=== PATIENT | female | born 1940 | race Caucasian/White ===

== ENCOUNTER 2016-10-23 07:54 | Observation (INO) | payer OTHER ==
--- NOTE | 2016-10-23 08:17 | PDOC ---
History of Present Illness - General Chief Complaint: Syncope/Near Syncope Stated Complaint: PASSED OUT Time Seen by Provider: 10/23/16 08:16 History Source: Patient, Old Records Exam Limitations: No Limitations - History of Present Illness Initial Comments: 10/23/16 08:23 75-year-old female with history of hypertension, high cholesterol, diet- controlled diabetes, lung cancer (on chemotherapy) presents to the emergency department with syncope times one episode this morning and near syncope several hours after that. The patient states that she was feeling leg cramps this morning at around 5 AM. She got up to go to the bathroom and after urinating felt very lightheaded, dizzy and diaphoretic. She thought she was going to pass out so her intentions were to lay down on the floor. The patient says that she may have blacked out for a minute or so. The patient had pain to her face and thinks that she probably hit her face on the way down to the floor. She subsequently got up and went back to bed when she had a recurrent episode without syncope. The patient denies chest pain, shortness of breath, nausea, vomiting, abdominal pain, complaints. The patient took 6 baby aspirin after this episode. 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) Diabetes: Yes HTN: Yes Hypercholesterolemia: Yes Lung CA: Yes (ON CHEMOTHERAPY Q2 WEEKS FOR PAST 12 YRS) - Psycho/Social/Smoking Cessation Hx Anxiety: No Suicidal Ideation: No Smoking History: Former smoker Have you smoked in the past 12 months: No If you are a former smoker, when did you quit?: 1982 Information on smoking cessation initiated: No Hx Alcohol Use: No Drug/Substance Use Hx: No Substance Use Type: None Review of Systems - Review of Systems Able to Perform ROS?: Yes Is the patient limited Fijian proficient: No Constitutional: Yes: See HPI HEENTM: Yes: See HPI Respiratory: No: Symptoms reported Cardiac (ROS): No: Symptoms Reported ABD/GI: No: Symptoms Reported : No: Symptoms Reported Musculoskeletal: No: Symptoms Reported Integumentary: No: Symptoms Reported Neurological: Yes: Dizziness *Physical Exam - Vital Signs Last Vital Signs Temp Pulse Resp BP Pulse Ox 98 F 93 H 18 177/91 92 L 10/23/16 07:56 10/23/16 07:56 10/23/16 07:56 10/23/16 07:56 10/23/16 07:56 - Physical Exam Comments: 10/23/16 08:18 GENERAL: Well developed, well nourished. Awake and alert. No acute distress. HEENT: Normocephalic. There is ecchymosis and swelling to the forehead and the nasl bridge with tenderness to palpation. PERRLA, EOMI (both eyes are s/p cataract surgery). . No conjunctival pallor. Sclera are non-icteric. Moist mucous membranes. Oropharynx is clear. NECK: Supple. Full ROM. No JVD. No lymphadenopathy. CARDIOVASCULAR: Regular rate and rhythm. No murmurs, rubs, or gallops. Distal pulses are 2+ and symmetric. PULMONARY: No evidence of respiratory distress. There are crackles in the [id number] left lung field; the righht lung field is CTA. No wheezing, rales or rhonchi. ABDOMINAL: Soft. Non-tender. Non-distended. No rebound or guarding. No organomegaly. Normoactive bowel sounds. MUSCULOSKELETAL Normal range of motion at all joints. No bony deformities or tenderness. No CVA tenderness. EXTREMITIES: No cyanosis. No clubbing. No edema. No calf tenderness. SKIN: Warm and dry. Normal capillary refill. No rashes. No jaundice. NEUROLOGICAL: Alert, awake, appropriate. Cranial nerves 2-12 intact. Grossly non-focal exam. PSYCHIATRIC: Cooperative. Good eye contact. Appropriate mood and affect. ED Treatment Course - LABORATORY CBC & Chemistry Diagram: 10/23/16 08:18 10/23/16 08:18 Medical Decision Making - Medical Decision Making 10/23/16 08:20 75-year-old female with history of lung CA (on chemotherapy), hypertension, high cholesterol, diet-controlled diabetes who presents to the emergency Department with complaints of facial pain status post syncopal episode times one and near syncope this morning. Differential diagnosis includes but is not limited to: Cardiac arrhythmia, ACS, dehydration, electrolyte abnormality, infection, toxic/metabolic derangement, nasal bone fracture, traumatic brain injury, head contusion, concussion. Plan: 1. EKGshows normal sinus rhythm at 83 bpm, normal axis and intervals with no acute ST segment changes. 2. CT head 3. Chest x-ray 4. Labs 5. Urine analysis 6. Will admit to a monitored setting for serial cardiac markers and cardiac monitoring 10/23/16 09:55 Addendum: Labs were reviewed and are noted in the EMR. CT head is negative for acute intracranial pathology. Chest x-ray is unchanged from prior. Will admit to telemetry for syncope workup. *DC/Admit/Observation/Transfer Diagnosis at time of Disposition: Syncope and collapse, Facial contusion - Discharge Dispostion Condition at time of disposition: Stable Admit: Yes
[2016-10-23 09:07] LABS: BASOPHIL 0.5 % (0-2.0); MCH 30.2 pg (25.7-33.7); MCHC 34.5 g/dl (32.0-36.0); MEAN CELL VOLUME 87.3 fl (80-96); MEAN PLT VOLUME 8.6 fl (7.5-11.1); NEUTROPHILS 74.2 % (42.8-82.8); PLATELET COUNT 219 K/MM3 (134-434); RDW 14.8 % (11.6-15.6); WHITE BLOOD COUNT 10.1 K/mm3 (4.0-10.8)
[2016-10-23 09:14] LABS: CPK(DFH) 91 IU/L (26-140)
[2016-10-23 09:16] LABS: ALBUMIN 3.9 g/dl (3.5-5.0); ALK PHOS 137 U/L (32-92); ANION GAP 9 (8-16); BILIRUBIN,TOTAL 0.5 mg/dl (0.2-1.0); CO2 26 mmol/L (22-28); CREATININE 0.9 mg/dl (0.6-1.3); GLUCOSE,RANDOM 107 mg/dl (74-106); MAGNESIUM 1.8 mg/dL (1.8-2.4); PHOSPHOROUS 3.7 mg/dl (2.5-4.6); SGOT/AST 39 U/L (10-42); SGPT/ALT 29 U/L (10-40); TOT PROT 6.8 g/dl (6.4-8.3)
[2016-10-23 09:22] LABS: ACTIVATED PTT 28.6 SECONDS (24.0-38.9)
[2016-10-23 09:26] LABS: INR 0.95 (0.82-1.09); PROTHROMBIN TIME (PATIENT) 10.7 SEC (10.2-13.0)
[2016-10-23 09:46] LABS: TROPONIN I (DFP) < 0.03 ng/ml (0.03-0.50)
--- NOTE | 2016-10-23 10:20 | HP ---
CHIEF COMPLAINT: syncope PCP: Dr Longoria Oncology: Dr Cronin HISTORY OF PRESENT ILLNESS: Patient is a 75 y/o female with a past medical history of lung CA ( chemotherapy every 2 weeks), carotid stenosis, PVD, hypertension, hyperlipidemia, NIDDM (diet controlled). Patient reports she was upstairs in her home early this AM (5am) and was sitting on the toilet and upon attempting to stand, she felt dizzy and fell striking her face on the floor, patient is unable to recall the full incident in detail. reports he was home at the time of the incident and found patient on the floor awake, alert and oriented times three. patient denies any chest pain, shortness of breath, or abdominal pain. ER course was notable for: (1) head ct no acute pathology (2) ekg nsr normal axis (3) chest xray right pleural thickening, right sided athelactasis/fibrosis unchanged from prior Recent Travel: none PAST MEDICAL HISTORY: lung ca, carotid stenosis, peripheral vascular disease, HTN, HLD, NIDDM PAST SURGICAL HISTORY: carotid enderectomy, fem pop Social History: employed, resides at home with Smoking: none Alcohol:none Drugs: none Family History: non contributory Allergies No Known Allergies Allergy (Verified 10/23/16 07:56) HOME MEDICATIONS: Home Medications Medication Instructions Recorded Aspirin Coated [Ecotrin -] 81 mg PO DAILY 12/02/14 Atorvastatin Ca [Lipitor -] 80 mg PO DAILY 12/02/14 Valsartan [Diovan] 40 mg PO DAILY 12/02/14 Vinorelbine Tartrate [Navelbine] 0 mg IV ASDIR 12/02/14 Colesevelam HCl [Welchol (Nf)] 0 mg NR DAILY 10/23/16 REVIEW OF SYSTEMS CONSTITUTIONAL: Absent: fever, chills, diaphoresis, generalized weakness, malaise, loss of appetite, weight change HEENT: Absent: rhinorrhea, nasal congestion, throat pain, throat swelling, difficulty swallowing, mouth swelling, ear pain, eye pain, visual changes CARDIOVASCULAR: Absent: chest pain, syncope, palpitations, irregular heart rate, lightheadedness , peripheral edema RESPIRATORY: Absent: cough, shortness of breath, dyspnea with exertion, orthopnea, wheezing, stridor, hemoptysis GASTROINTESTINAL: Absent: abdominal pain, abdominal distension, nausea, vomiting, diarrhea, constipation, melena, hematochezia GENITOURINARY: Absent: dysuria, frequency, urgency, hesitancy, hematuria, flank pain, genital pain MUSCULOSKELETAL: Absent: myalgia, arthralgia, joint swelling, back pain, neck pain SKIN: Absent: rash, itching, pallor HEMATOLOGIC/IMMUNOLOGIC: Absent: easy bleeding, easy bruising, lymphadenopathy, frequent infections ENDOCRINE: Absent: unexplained weight gain, unexplained weight loss, heat intolerance, cold intolerance NEUROLOGIC: Absent: headache, focal weakness or paresthesias, dizziness, unsteady gait, seizure, mental status changes, bladder or bowel incontinence PSYCHIATRIC: Absent: anxiety, depression, suicidal or homicidal ideation, hallucinations. PHYSICAL EXAMINATION Vital Signs - 24 hr 10/23/16 07:56 Temperature 98 F Pulse Rate 93 H Respiratory 18 Rate Blood Pressure 177/91 O2 Sat by Pulse 92 L Oximetry (%) GENERAL: Awake, alert, and fully oriented, in no acute distress. HEAD: echymosis to forehead, abrasion to bridge of nose EYES: Pupils equal, round and reactive to light, extraocular movements intact, sclera anicteric, conjunctiva clear. No lid lag. EARS, NOSE, THROAT: Ears normal, nares patent, oropharynx clear without exudates. Moist mucous membranes. NECK: Normal range of motion, supple without lymphadenopathy, JVD, or masses. LUNGS: Breath sounds equal, clear to auscultation bilaterally. No wheezes, and no crackles. No accessory muscle use. HEART: Regular rate and rhythm, normal S1 and S2, 2/6 systolic murmur, rub or gallop. ABDOMEN: Soft, nontender, not distended, normoactive bowel sounds, no guarding, no rebound, no masses. No hepatomegaly or splenomegaly. MUSCULOSKELETAL: Normal range of motion at all joints. No bony deformities or tenderness. No CVA tenderness. UPPER EXTREMITIES: 2+ pulses, warm, well-perfused. No cyanosis. No clubbing. No peripheral edema. LOWER EXTREMITIES: 2+ pulses, warm, well-perfused. No calf tenderness. No peripheral edema. NEUROLOGICAL: Cranial nerves II-XII intact. Normal speech. Normal gait. PSYCHIATRIC: Cooperative. Good eye contact. Appropriate mood and affect. SKIN: Warm, dry, normal turgor, no rashes or lesions noted, normal capillary refill. Laboratory Results - last 24 hr 10/23/16 10/23/16 10/23/16 08:18 08:18 08:18 WBC 10.1 RBC 4.32 Hgb 13.0 Hct 37.7 MCV 87.3 MCHC 34.5 RDW 14.8 Plt Count 219 MPV 8.6 Neutrophils % 74.2 Lymphocytes % 18.5 Monocytes % 5.8 Eosinophils % 1.0 Basophils % 0.5 INR 0.95 L PTT (Actin FS) 28.6 Sodium 138 Potassium 3.6 Chloride 103 Carbon Dioxide 26 Anion Gap 9 BUN 23 H D Creatinine 0.9 D Creat Clearance w eGFR > 60 Random Glucose 107 H Calcium 9.0 Phosphorus 3.7 Magnesium 1.8 Total Bilirubin 0.5 AST 39 D ALT 29 Alkaline Phosphatase 137 H D Creatine Kinase Troponin I Total Protein 6.8 Albumin 3.9 Lipase 43 10/23/16 08:18 WBC RBC Hgb Hct MCV MCHC RDW Plt Count MPV Neutrophils % Lymphocytes % Monocytes % Eosinophils % Basophils % INR PTT (Actin FS) Sodium Potassium Chloride Carbon Dioxide Anion Gap BUN Creatinine Creat Clearance w eGFR Random Glucose Calcium Phosphorus Magnesium Total Bilirubin AST ALT Alkaline Phosphatase Creatine Kinase 91 Troponin I < 0.03 L Total Protein Albumin Lipase ASSESSMENT/PLAN: 1) card syncope - continous cardiac monitoring - first troponin x 1 wnl, pending 2nd and third - stat echo ordered - pt has a significant history of carotid stenosis will order carotid dopplers - appreciate cardiology input hyperlipidemia - pending lipid panel, continue lipitor hypertension - continue diovan - strict b/p monitoring 2) 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 - New Patient This patient is new to me today: Yes Date on this admission: 10/23/16 - Critical Care Critical Care patient: Yes Total Critical Care Time (in minutes): 45 Critical Care Statement: The care of this patient involved high complexity decision making to prevent further life threatening deterioration of the patient 's condition and/or to evalute & treat vital organ system(s) failure or risk of failure.
[2016-10-23 14:34] LABS: PH,URINE 6.5 (4.5-8); URINE APPEARANCE Clear; URINE BILIRUBIN Negative (NEGATIVE); URINE BLOOD Negative (NEGATIVE); URINE GLUCOSE (UA) Negative (NEGATIVE); URINE KETONE Negative (NEGATIVE); URINE LEUK ESTERASE Negative (NEGATIVE); URINE NITRITE Negative (NEGATIVE); URINE PROTEIN Trace (NEGATIVE); URINE UROBILINOGEN 0.2 E.U/dl (0.2-1.0)
[2016-10-23 14:36] LABS: URINE COLOR YELLOW
[2016-10-23 15:13] VITALS: BMI 19.3
[2016-10-23 15:32] LABS: CPK(DFH) 89 IU/L (26-140)
[2016-10-23 16:05] LABS: TROPONIN I (DFP) < 0.03 ng/ml (0.03-0.50)
--- NOTE | 2016-10-23 17:35 | CONSULT ---
Consult Consult Specialty:: Cardiology Referred by:: Dorota Shepherd Reason for Consultation:: Syncope - History of Present Illness Chief Complaint: syncope History of Present Illness: 75 y/o female with hx of past tobacco, HTN, HLD, DM 2 -> diet controlled, ? past TIAs, PAD -> past L CEA and L femoral-pop bypass, lung CA dx'ed in 2002 -> chemotherapy every 2 weeks, here with syncope/near-syncope. Pt denies hx of [place], CP, CHF. She however has had SPARKS since having XRT to her lungs. She gets on a treadmill daily, though slowly. She suffers from leg cramps for years -. often has to get up at night to walk around. Last night, she was having her usual symptoms -. got up a few times -> around 5AM, went to bathroom, sat on closed toilet -. as getting up again, felt dizzy -. thought she needed to lie down -. started to do so -. wok up on the floor. She went back to bed. At around 7 AM< she again got, up, felt dizzy/near-syncopal, but didn't syncopized -> decided that she should come in. 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 ) Cardio/Vascular: Yes: HTN, Hyperlipdemia Pulmonary: Yes: Other (lung cancer since 2002 ) Gastrointestinal: Yes: Other (CBD sludge) ...: No Heme/Onc: Yes: Cancer Endocrine: Yes: Diabetes Mellitus (diet managed) - Past Surgical History Past Surgical History: Yes: Cataract Removal (b/l) Additional Surgical History: hemorrhoidectomy, ERCP for CBD stone/sludge, port placement in right chest - Alcohol/Substance Use Hx Alcohol Use: No - Smoking History Smoking history: Former smoker (2 ppd) Have you smoked in the past 12 months: No Aproximately how many cigarettes per day: 0 If you are a former smoker, when did you quit?: 1982 - Social History Usual Living Arrangement: With Spouse Home Medications - Allergies Allergies/Adverse Reactions: Allergies Allergy/AdvReac Type Severity Reaction Status Date / Time No Known Allergies Allergy Verified 10/23/16 07:56 - Home Medications Home Medications: Ambulatory Orders Aspirin Coated [Ecotrin -] 81 mg PO DAILY 12/02/14 Atorvastatin Ca [Lipitor -] 80 mg PO DAILY 12/02/14 Valsartan [Diovan] 40 mg PO DAILY 12/02/14 Vinorelbine Tartrate [Navelbine] 0 mg IV ASDIR 12/02/14 Colesevelam HCl [Welchol (Nf)] 0 mg NR DAILY 10/23/16 Family Disease History - Family Disease History Family Disease History: Diabetes: Mother (in her 70s-80s), Heart Disease: Father ([place] in his 50s) Review of Systems - Review of Systems Constitutional: reports: No Symptoms Eyes: reports: No Symptoms HENT: reports: No Symptoms Neck: reports: No Symptoms Cardiovascular: reports: Shortness of Breath Respiratory: reports: Cough, SOB on Exertion Gastrointestinal: reports: No Symptoms Genitourinary: reports: No Symptoms Musculoskeletal: reports: No Symptoms Neurological: reports: No Symptoms Hematology/Lymphatic: reports: No Symptoms Physical Exam Vital Signs: Vital Signs Temperature 98.0 F 10/23/16 14:35 Pulse Rate 94 H 10/23/16 14:35 Respiratory Rate 16 10/23/16 14:35 Blood Pressure 137/59 10/23/16 14:35 O2 Sat by Pulse Oximetry (%) 96 10/23/16 14:52 Constitutional: Yes: No Distress Eyes: Yes: Conjunctiva Clear HENT: Yes: Atraumatic Neck: Yes: Supple Cardiovascular: Yes: Regular Rate and Rhythm, Murmur (soft FUNMI at base) Respiratory: No: Rales, Rhonchi, Wheezes Gastrointestinal: Yes: Normal Bowel Sounds, Soft. No: Tenderness Edema: No Peripheral Pulses WNL: Yes Neurological: Yes: Alert, Oriented Psychiatric: Yes: Alert, Oriented Imaging - Results Chest X-ray: Report Reviewed, Image Reviewed EKG: Report Reviewed, Image Reviewed (SR) Other: Other (ECHO (10/23/16) -. Nl lV size and systolic function, mild DD, mod- sev AV sclerosis w/o stenosis, trace-mild AI, trace MR/TR Carotid USG (10/23/16) - . extrentive atherosclerosis w/o setenosis) Assessment/Plan 75 yo female with the above history, here with syncopal episode and near- syncopal episode about 2 hrs apart -. both episodes preceded by lightheadedness , making vasovagal phenomenon likely. The background was a lot of discomfort from cramps , which she gets a lot No evidence of ACS, CHF or arrhythmia EKG is normal Echo without sign valvular disease However, given hx PAD, should be further evaluated with stress test as outpt ( she had one a few yrs ago prior to her CEA) Rec: Check 3rd CE Check orthostatics Repeat EKG in AM Continue current meds Check TFTs If remains stable, ie neg CE, no sign tele event, may be d/noris in AM with plan to follow as outpt for holter and stress test Thanks! D/w pt and family at length at bedside
--- NOTE | 2016-10-23 17:53 | EKG ---
Test Reason : Blood Pressure : / mmHG Vent. Rate : 083 BPM Atrial Rate : 083 BPM P-R Int : 176 ms QRS Dur : 076 ms QT Int : 402 ms P-R-T Axes : 056 029 053 degrees QTc Int : 472 ms NORMAL SINUS RHYTHM Prolonged QT NO PREVIOUS ECGS AVAILABLE Confirmed by MD CHANTEL, DA ([id number]) on 10/23/2016 5:52:40 PM Referred By: CARA HTUSON Confirmed By:DA GOLDEN MD
[2016-10-23 20:49] LABS: CPK(DFH) 84 IU/L (26-140)
[2016-10-23 20:58] LABS: TROPONIN I (DFP) < 0.03 ng/ml (0.03-0.50)
[2016-10-24 06:03] VITALS: BP 141/81; PULSE 89; TEMP 98.2
[2016-10-24 08:37] LABS: BASOPHIL 0.5 % (0-2.0); EOSINOPHIL 1.4 % (0-4.5); MCH 29.1 pg (25.7-33.7); MCHC 33.1 g/dl (32.0-36.0); MEAN CELL VOLUME 88.1 fl (80-96); MEAN PLT VOLUME 8.7 fl (7.5-11.1); NEUTROPHILS 69.6 % (42.8-82.8); PLATELET COUNT 224 K/MM3 (134-434); RDW 14.7 % (11.6-15.6); WHITE BLOOD COUNT 7.3 K/mm3 (4.0-10.8)
[2016-10-24 09:23] LABS: ALBUMIN 3.7 g/dl (3.5-5.0); ALK PHOS 126 U/L (32-92); ANION GAP 10 (8-16); BILIRUBIN,TOTAL 0.8 mg/dl (0.2-1.0); CALCIUM 8.9 mg/dl (8.4-10.2); CHOLESTEROL 205 mg/dl; CO2 24 mmol/L (22-28); GLUCOSE,RANDOM 109 mg/dl (74-106); SGOT/AST 30 U/L (10-42); SGPT/ALT 24 U/L (10-40); TOT PROT 6.5 g/dl (6.4-8.3)
[2016-10-24] MEDS ORDERED: VALSARTAN 40 MG TABLET (FP) PO SCH (10:00)
[2016-10-24] MEDS ORDERED: PATIENT'S OWN MEDICATION (NON-FORMULARY) (Colesevelam Hcl [Welchol (Nf)] 625 MG) NR SCH (10:00)
[2016-10-24] MEDS ORDERED: ASPIRIN COATED 81 MG TABLET.EC PO SCH (10:00)
[2016-10-24] MEDS ORDERED: ATORVASTATIN CA 80 MG TABLET (FP) PO SCH (10:00)
[2016-10-24] MEDS ORDERED: POTASSIUM CHLORIDE TABS 20 MEQ TABLET.ER (FP) PO ONE (10:15)
--- NOTE | 2016-10-24 12:22 | DS ---
Physical Exam: SUBJECTIVE: Patient seen and examined OBJECTIVE: Vital Signs Period Temp Pulse Resp BP Sys/Her Pulse Ox Last 24 Hr 98.0 F-98.2 F 89-94 16-18 137-156/59-85 93-96 PHYSICAL EXAM GENERAL: The patient is awake, alert, and fully oriented, in no acute distress. HEAD: Normal with no signs of trauma. EYES: PERRL, extraocular movements intact, sclera anicteric, conjunctiva clear. ENT: Ears normal, nares patent, oropharynx clear without exudates, moist mucous membranes. NECK: Trachea midline, full range of motion, supple. LUNGS: Breath sounds equal, clear to auscultation bilaterally, no wheezes, no crackles, no accessory muscle use. HEART: Regular rate and rhythm, S1, S2 without murmur, rub or gallop. ABDOMEN: Soft, nontender, nondistended, normoactive bowel sounds, no guarding, no rebound, no hepatosplenomegaly, no masses. EXTREMITIES: 2+ pulses, warm, well-perfused, no edema. NEUROLOGICAL: Cranial nerves II through XII grossly intact. Normal speech, gait not observed. PSYCH: Normal mood, normal affect. SKIN: Warm, dry, normal turgor, no rashes or lesions noted. LABS Laboratory Results - last 24 hr 10/23/16 10/23/16 10/23/16 13:33 15:30 20:00 WBC RBC Hgb Hct MCV MCHC RDW Plt Count MPV Neutrophils % Lymphocytes % Monocytes % Eosinophils % Basophils % Sodium Potassium Chloride Carbon Dioxide Anion Gap BUN Creatinine Creat Clearance w eGFR Random Glucose Calcium Magnesium Total Bilirubin AST ALT Alkaline Phosphatase Creatine Kinase 89 84 Troponin I < 0.03 L < 0.03 L Total Protein Albumin Triglycerides Cholesterol Total LDL Cholesterol HDL Cholesterol Urine Color Yellow Urine Appearance Clear Urine pH 6.5 D Ur Specific [place] 1.015 Urine Protein Trace Urine Glucose (UA) Negative Urine Ketones Negative Urine Blood Negative Urine Nitrite Negative Urine Bilirubin Negative Urine Urobilinogen 0.2 e.u/dl Ur Leukocyte Esterase Negative 10/24/16 10/24/16 10/24/16 07:23 07:23 07:24 WBC 7.3 RBC 4.64 Hgb 13.5 Hct 40.9 MCV 88.1 MCHC 33.1 RDW 14.7 Plt Count 224 MPV 8.7 Neutrophils % 69.6 Lymphocytes % 20.9 Monocytes % 7.6 Eosinophils % 1.4 Basophils % 0.5 Sodium 139 Potassium 3.3 L Chloride 105 Carbon Dioxide 24 Anion Gap 10 BUN 21 H Creatinine 1.0 Creat Clearance w eGFR 54.05 Random Glucose 109 H Calcium 8.9 Magnesium 2.1 Total Bilirubin 0.8 D AST 30 D ALT 24 Alkaline Phosphatase 126 H Creatine Kinase Troponin I Total Protein 6.5 Albumin 3.7 Triglycerides 93 Cholesterol 205 Total LDL Cholesterol 90 HDL Cholesterol 96 H Urine Color Urine Appearance Urine pH Ur Specific [place] Urine Protein Urine Glucose (UA) Urine Ketones Urine Blood Urine Nitrite Urine Bilirubin Urine Urobilinogen Ur Leukocyte Esterase HOSPITAL COURSE: Date of Admission:10/23/16 Date of Discharge: 10/24/16 Minutes to complete discharge: 45 Discharge Summary Reason For Visit: SYNCOPE COLLAPSE FACIAL CONTUSION Current Active Problems Facial contusion (Acute) Syncope and collapse (Acute) Condition: Stable - Home Medications Comprehensive Discharge Medication List: Ambulatory Orders Aspirin Coated [Ecotrin -] 81 mg PO DAILY 12/02/14 Atorvastatin Ca [Lipitor -] 80 mg PO DAILY 12/02/14 Valsartan [Diovan] 40 mg PO DAILY 12/02/14 Vinorelbine Tartrate [Navelbine] 0 mg IV ASDIR 12/02/14 Colesevelam HCl [Welchol (Nf)] 0 mg NR DAILY 10/23/16
[2016-10-25 13:56] LABS: THYROID STIMULATING HORMONE 3.13 uIU/ml (0.358-3.74)
== END 2016-10-24 12:37 | disposition home or self-care (01) ==
LOC: FER 07:54 → FM/S 12:08
PROVIDERS: ADMIT Internal Medicine; ATTEND Nurse Practitioner Family
DX: R55 Syncope and collapse (principal); S00.83XA Contusion of other part of head, initial encounter; I10 Essential (primary) hypertension; I65.29 Occlusion and stenosis of unspecified carotid artery; E78.5 Hyperlipidemia, unspecified; E11.9 Type 2 diabetes mellitus without complications; C34.90 Malignant neoplasm of unspecified part of unspecified bronchus or lung; J44.9 Chronic obstructive pulmonary disease, unspecified; Z87.891 Personal history of nicotine dependence; I73.9 Peripheral vascular disease, unspecified; Z79.82 Long term (current) use of aspirin; Z92.21 Personal history of antineoplastic chemotherapy; W18.39XA Other fall on same level, initial encounter; Y93.89 Activity, other specified; Y92.002 Bathroom of unspecified non-institutional (private) residence as the place of occurrence of the external cause
CPT/HCPCS: 36415; 70450-TC; 71020-TC; 80053; 80061; 81003; 82550; 83690; 83735; 84100; 84439; 84443; 84484; 85025; 85610; 85730; 93005; 93306-TC; 93880-TC; 99285-25; G0378

== ENCOUNTER 2017-05-03 13:42 | Inpatient (IN) | payer OTHER ==
[2017-05-03 14:18] VITALS: BMI 20.2
--- NOTE | 2017-05-03 14:19 | PDOC ---
History of Present Illness - General Chief Complaint: Shortness of Breath Stated Complaint: DIFFICULT BREATHING Time Seen by Provider: 05/03/17 14:12 - History of Present Illness Initial Comments: Patient is a 76 y/o female with PMH of lung CA (previous chemotherapy and XRT , currently on imunotherapy (last given 04/29/17)), carotid stenosis, PVD, hypertension, hyperlipidemia, Trach/ PEG (since 03/03) and NIDDM (diet controlled) presenting with increased trach O2 requirement, lethargy, and new left sided lung infiltrates. Patient has had increasing O2 requirements over the past week and has been hypoxic on her 8L trachea O2. An CXR was performed at her facility evidencing new left sided infiltrates. They attempted to treat her on abx but her hypoxia has gotten worse over the past few days. Denies fevers, chills, nausea, vomiting, diarrhea, constipation, chest pain, or other symptoms. 05/03/17 15:24 Past History - Past Medical History Allergies/Adverse Reactions: Allergies Allergy/AdvReac Type Severity Reaction Status Date / Time No Known Allergies Allergy Verified 05/03/17 14:19 Home Medications: Ambulatory Orders Acetaminophen [Pain Relief] 650 mg GT QID PRN 05/03/17 Amlodipine Besylate [Norvasc -] 5 mg GT DAILY 05/03/17 Aspirin [ASA -] 81 mg GT DAILY 05/03/17 Atorvastatin Ca [Lipitor] 20 mg GT HS 05/03/17 Cholecalciferol (Vitamin D3) [Vitamin D3 -] 800 units GT DAILY 05/03/17 Escitalopram Oxalate [Lexapro -] 10 mg GT DAILY 05/03/17 Ipratropium 0.02% Nebulizer [Atrovent 0.02% Nebulizer -] 1 neb NEB QID 05/03/17 Lansoprazole [Prevacid -] 30 mg GT DAILY 05/03/17 Levothyroxine [Synthroid -] 75 mcg GT DAILY 05/03/17 Lorazepam 1 mg GT TID 05/03/17 Multivitamin [One Daily] 1 each GT DAILY 05/03/17 Polyethylene Glycol 3350 [Laxaclear] 1 packet GT DAILY 05/03/17 Quetiapine Fumarate [Seroquel -] 25 mg GT HS 05/03/17 Valsartan [Diovan] 40 mg GT DAILY 05/03/17 Zinc Oxide 20% Topical Oint 454 gm NR TID 05/03/17 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) Diabetes: Yes GI Disorders: Yes (GERD) HTN: Yes Hypercholesterolemia: Yes Psychiatric Problems: Yes (Bipolar, Schizophrenia) Thyroid Disease: Yes (hypothyroidism) Lung CA: Yes (ON CHEMOTHERAPY Q2 WEEKS FOR PAST 12 YRS) Other medical history: Trach - Suicide/Smoking/Psychosocial Hx Smoking History: Former smoker Have you smoked in the past 12 months: No Number of Cigarettes Smoked Daily: 0 If you are a former smoker, when did you quit?: 1982 Information on smoking cessation initiated: No Hx Alcohol Use: No Drug/Substance Use Hx: No Substance Use Type: None Hx Substance Use Treatment: No Review of Systems - Review of Systems Constitutional: No: Chills, Diaphoresis, Fever HEENTM: No: Blurred Vision Respiratory: Yes: Cough, Shortness of Breath. No: Wheezing Cardiac (ROS): No: Chest Pain, Irregular Heart Rate, Lightheadedness ABD/GI: No: Diarrhea, Nausea, Vomiting : No: Burning, Dysuria Musculoskeletal: No: Back Pain Integumentary: No: Bruising, Change in Color Neurological: No: Headache, Numbness *Physical Exam - Vital Signs Last Vital Signs Temp Pulse Resp BP Pulse Ox 97.8 F 95 H 20 92/61 93 L 05/03/17 14:08 05/03/17 14:08 05/03/17 14:08 05/03/17 14:08 05/03/17 14:08 - Physical Exam General Appearance: Yes: Nourished, Appropriately Dressed. No: Apparent Distress HEENT: positive: EOMI, NADINE, Normal ENT Inspection. negative: Normal Voice ( Mechanical voice with trach cap) Neck: positive: Trachea midline, Other (trach in place without surrounding erythema or other sign of infection). negative: Tender, Rigid Respiratory/Chest: positive: Decreased Breath Sounds (Right and Left lung base) , Crackles, Rhonchi (Left base to mid lung field.). negative: Chest Tender, Lungs Clear, Normal Breath Sounds, Respiratory Distress, Accessory Muscle Use Cardiovascular: positive: Regular Rhythm, Regular Rate Gastrointestinal/Abdominal: positive: Normal Bowel Sounds, Flat, Soft. negative : Tender Musculoskeletal: positive: Normal Inspection Extremity: positive: Normal Capillary Refill, Normal Inspection, Normal Range of Motion. negative: Tender Integumentary: positive: Normal Color, Dry, Warm Neurologic: positive: Fully Oriented, Alert, Normal Mood/Affect ED Treatment Course - LABORATORY CBC & Chemistry Diagram: 05/15/17 06:00 05/13/17 07:10 Medical Decision Making - Medical Decision Making 76 year old female with known lung cancer presenting with hypoxia in the setting of newly identified left sided lung infiltrates. Most likely post obstructive pneumonia as the most concerning/ pressing cause. No WBC or other vital sign abnormality with the exception of hypoxia. Patient placed on Vanc/ Zosyn and admitted to [facility] for further abx treatment with Rambo as a consult. *DC/Admit/Observation/Transfer Diagnosis at time of Disposition: Pneumonia Qualifiers: Pneumonia type: due to other aerobic Gram-negative bacteria Laterality: unspecified laterality Lung location: unspecified part of lung Qualified Code(s) : J15.6 - Pneumonia due to other Gram-negative bacteria - Discharge Dispostion Disposition: SNF FACILITY Condition at time of disposition: Stable - Referrals - Patient Instructions - Post Discharge Activity
[2017-05-03] MEDS ORDERED: SODIUM CHLORIDE 0.9% 1000 ML INFUS.BAG IV PRN (14:54)
[2017-05-03] MEDS ORDERED: LORazepam 1 MG TABLET PO ONE (15:16)
[2017-05-03] MEDS ORDERED: LORazepam 0.5 MG TABLET ONE (15:34)
[2017-05-03 15:45] LABS: VENOUS PC02 47.2 mmHg (38-52); VENOUS PH 7.38 (7.32-7.42); VENOUS PO2 39.1 mmHg (28-48)
[2017-05-03 15:47] LABS: BASO % 0.5 % (0-2.0); EOS % 3.2 % (0-4.5); HEMATOCRIT 27.3 % (32.4-45.2); LYMPH % 12.6 % (8-40); MCH 28.5 pg (25.7-33.7); MCHC 33.2 g/dl (32.0-36.0); MEAN CELL VOLUME 85.9 fl (80-96); MEAN PLT VOLUME 7.5 fl (7.5-11.1); MONO % 11.7 % (3.8-10.2); PLATELET COUNT 227 K/MM3 (134-434); RBC 3.18 M/mm3 (3.60-5.2); RDW 16.8 % (11.6-15.6); WHITE BLOOD COUNT 7.9 K/mm3 (4.0-10.0)
[2017-05-03 16:02] LABS: URINE APPEARANCE CLOUDY; URINE BILIRUBIN NEGATIVE (NEGATIVE); URINE BLOOD 1+ (NEGATIVE); URINE COLOR YELLOW; URINE GLUCOSE (UA) NEGATIVE (NEGATIVE); URINE KETONE NEGATIVE (NEGATIVE); URINE NITRITE NEGATIVE (NEGATIVE); URINE PROTEIN NEGATIVE (NEGATIVE); URINE UROBILINOGEN NEGATIVE mg/dL (0.2-1.0)
[2017-05-03 16:02] LABS: INR 1.07 (0.82-1.09); PROTHROMBIN TIME (PATIENT) 12.1 SEC (9.98-11.88)
[2017-05-03 16:04] LABS: URINE LEUK ESTERASE 3+ (NEGATIVE)
[2017-05-03 16:04] LABS: ACTIVATED PTT 42.2 SECONDS (26.9-34.4)
[2017-05-03 16:08] LABS: EPI CELLS RARE /HPF (FEW); URINE BACTERIA RARE /hpf (NONE SEEN); URINE HYALINE CAST 5 /lpf; URINE MUCUS RARE; YEAST MODERATE
[2017-05-03 16:23] LABS: ALBUMIN 2.4 g/dl (3.4-5.0); ANION GAP 8 (8-16); BILIRUBIN,TOTAL 0.3 mg/dL (0.2-1.0); BLOOD UREA NITROGEN 22 mg/dL (7-18); CHLORIDE 105 mmol/L (98-107); CO2 28 mmol/L (21-32); CREATININE 0.5 mg/dL (0.55-1.02); GLUCOSE,RANDOM 85 mg/dL (74-106); POTASSIUM 3.6 mmol/L (3.5-5.1); SGOT/AST 58 U/L (15-37); SGPT/ALT 46 U/L (12-78); SODIUM 141 mmol/L (136-145); TOT PROT 5.7 g/dl (6.4-8.2)
[2017-05-03 16:25] LABS: ALK PHOS 161 U/L (45-117)
--- NOTE | 2017-05-03 17:00 | PDOC ---
Attending Attestation - HPI HPI: 05/03/17 17:00 The patient is a 76 year old female, with a significant past medical history of lung CA (previous chemotherapy and XRT, currently on immunotherapy (last given 04/29/17)), carotid stenosis, PVD, hypertension, hyperlipidemia, Trach/ PEG ( since 03/03) and NIDDM (diet controlled), who presents to the emergency department with, increase in oxygen for trach, left sided lung infiltrates, and a chronic cough. The patient reports her oxygen requirements have increased significantly over the past week. She denies recent fevers, chills, headache or dizziness. She denies recent nausea, vomit, diarrhea or constipation. She denies recent dysuria, frequency, urgency or hematuria. Allergies: NKA Social history: Nonsmoker. Denies EtOH use and recreational drug use. Primary Care Physician: Dr. Jostin Castillo Documentation prepared by Sakina Matthews, acting as medical office secretary for Natalie Khan MD. <Sakina Matthews - Last Filed: 05/03/17 17:00> - Resident Resident Name: BrittaniCaroljacques - ED Attending Attestation I have performed the following: I have examined & evaluated the patient, The case was reviewed & discussed with the resident, I agree w/resident's findings & plan, Exceptions are as noted - Physicial Exam PE: GENERAL: Awake, alert, and fully oriented, in no acute distress HEAD: No signs of trauma EYES: PERRLA, EOMI, sclera anicteric, conjunctiva clear ENT: Auricles normal inspection, hearing grossly normal, nares patent, oropharynx clear without exudates. Moist mucosa. +Trach with valve. NECK: Normal ROM, supple, no lymphadenopathy, JVD, or masses LUNGS: L lung with diffuse rhonchi, dec air entry at the base. R lung with dec breath sounds fpc up from base. Good air entry. HEART: Regular rate and rhythm, normal S1 and S2, no murmurs, rubs or gallops ABDOMEN: Soft, nontender, normoactive bowel sounds. No guarding, no rebound. No masses EXTREMITIES: Normal range of motion, no edema. No clubbing or cyanosis. No cords, erythema, or tenderness NEUROLOGICAL: Cranial nerves II through XII grossly intact. Normal speech. Motor and sensation intact. SKIN: Warm, Dry, normal turgor, no rashes or lesions noted. - Medical Decision Making Pt with new infiltrates in setting of known lung CA. Will treat for suspected post-obstructive pna. Will discuss with PMD and admit. <Natalie Khan - Last Filed: 05/05/17 11:06>
[2017-05-03] MEDS ORDERED: VANCOMYCIN 1,000 MG in DEXTROSE 5%-WATER - 250 ML IVPB ONE (17:52)
[2017-05-03] MEDS ORDERED: PIPERACILLIN/TAZOB 3.375 GM/50 ML PRE-DOCKED IVPB ONE (17:53)
[2017-05-03] MEDS ORDERED: PIPERACILLIN/TAZOB 3.375 GM 3.375 GM/50 ML BAG IVPB ONE (17:58)
[2017-05-03] MEDS ORDERED: VANCOMYCIN 1 GRAM (PRE-DOCKED) 1,000 MG/250 ML BAG IVPB ONE (17:58)
[2017-05-03] MEDS: D5-1/2NS+20 MEQ KCL - 20 MEQ/1,000 ML INFUS.BAG IV SCH (18:59)
[2017-05-03] MEDS ORDERED: ACETAMINOPHEN 650 MG/20.3 ML ORAL SOLUTION (CUPS) ONE (20:03)
[2017-05-03] MEDS: ACETAMINOPHEN 650 MG/20.3 ML ORAL SOLUTION (CUPS) GT PRN (20:13)
[2017-05-03] MEDS ORDERED: PATIENT'S OWN MEDICATION (NON-FORMULARY) (Zinc Oxide 20% Topical Oint 454 GM) NR SCH (22:00)
[2017-05-03 22:14] LABS: BASO % 0.6 % (0-2.0); EOS % 2.6 % (0-4.5); HEMATOCRIT 28.8 % (32.4-45.2); HEMOGLOBIN 9.4 GM/dL (10.7-15.3); LYMPH % 5.6 % (8-40); MCH 28.4 pg (25.7-33.7); MCHC 32.8 g/dl (32.0-36.0); MEAN CELL VOLUME 86.4 fl (80-96); NEUT % 80.2 % (42.8-82.8); PLATELET COUNT 245 K/MM3 (134-434); RBC 3.33 M/mm3 (3.60-5.2); RDW 17.2 % (11.6-15.6); WHITE BLOOD COUNT 9.6 K/mm3 (4.0-10.0)
[2017-05-03] MEDS: QUEtiapine FUMARATE 25 MG TABLET (FP) GT SCH (23:29)
[2017-05-03] MEDS: HEPARIN NA (PORCINE) 5,000 UNITS/ML 1ML VIAL SQ SCH (23:29)
[2017-05-03] MEDS: LORazepam 1 MG TABLET GT SCH (23:29)
[2017-05-03] MEDS: ATORVASTATIN CA 20 MG TABLET (FP) GT SCH (23:29)
[2017-05-04] MEDS: PIPERACILLIN/TAZOB 3.375 GM 3.375 GM in DEXTROSE 5%-WATER - 50 ML IVPB SCH ×2 (02:50→13:02)
[2017-05-04] MEDS: LORazepam 1 MG TABLET GT SCH ×3 (06:25→21:48)
[2017-05-04] MEDS: LEVOTHYROXINE NA 75 MCG TABLET (FP) GT SCH (06:25)
[2017-05-04] MEDS: ZINC OXIDE 20% TOPICAL OINTMENT 30 GM TUBE TP SCH ×3 (06:25→21:51)
[2017-05-04 08:13] LABS: BASO % 0.5 % (0-2.0); EOS % 3.1 % (0-4.5); HEMOGLOBIN 10.5 GM/dL (10.7-15.3); LYMPH % 5.5 % (8-40); MCH 27.6 pg (25.7-33.7); MCHC 31.8 g/dl (32.0-36.0); MEAN CELL VOLUME 86.9 fl (80-96); MEAN PLT VOLUME 8.2 fl (7.5-11.1); MONO % 9.2 % (3.8-10.2); NEUT % 81.7 % (42.8-82.8); PLATELET COUNT 259 K/MM3 (134-434); WHITE BLOOD COUNT 8.9 K/mm3 (4.0-10.0)
[2017-05-04 08:45] LABS: ALBUMIN 2.6 g/dl (3.4-5.0); ANION GAP 11 (8-16); BLOOD UREA NITROGEN 13 mg/dL (7-18); CALCIUM 8.4 mg/dL (8.5-10.1); CHLORIDE 104 mmol/L (98-107); CO2 24 mmol/L (21-32); GLUCOSE,RANDOM 88 mg/dL (74-106); POTASSIUM 3.9 mmol/L (3.5-5.1); SGPT/ALT 45 U/L (12-78); SODIUM 139 mmol/L (136-145)
[2017-05-04 08:50] LABS: ALK PHOS 162 U/L (45-117); BILIRUBIN,TOTAL 0.5 mg/dL (0.2-1.0); CREATININE 0.6 mg/dL (0.55-1.02); SGOT/AST 44 U/L (15-37); TOT PROT 6.1 g/dl (6.4-8.2)
--- NOTE | 2017-05-04 08:50 | PN ---
Progress Note, Physician Chief Complaint: ID This is a 76 year old female known Lung CA trach dependent with O2 resident of the [facility] admitted with couphing sputum production and hypoxemia. Found to have bilateral infiltrates and UTI. She is getting immunosurpressive therapy for lung CA and has a portacath for this purpose. Already blood cultures positive for YEAST ! - Current Medication List Current Medications: Active Medications Acetaminophen (Tylenol Oral Solution -) 650 mg GT QID PRN PRN Reason: PAIN Last Admin: 05/03/17 20:13 Dose: 650 mg Amlodipine Besylate (Norvasc -) 5 mg GT DAILY [facility] Atorvastatin Calcium (Lipitor -) 20 mg GT HS [facility] Last Admin: 05/03/17 23:29 Dose: 20 mg Escitalopram Oxalate (Lexapro -) 10 mg GT DAILY [facility] Heparin Sodium (Porcine) (Heparin -) 5,000 unit SQ BID [facility] Last Admin: 05/03/17 23:29 Dose: 5,000 unit Potassium Chloride/Dextrose/Sod Cl (D5-1/2ns+20 Meq Kcl -) 20 meq in 1,000 mls @ 75 mls/hr IV ASDIR [facility] Last Admin: 05/03/17 18:59 Dose: 75 mls/hr Piperacillin Sod/Tazobactam (Sod 3.375 gm/ Dextrose) 50 mls @ 100 mls/hr IVPB Q8H-IV [facility] Stop: 05/04/17 10:29 Last Admin: 05/04/17 02:50 Dose: 100 mls/hr Levothyroxine Sodium (Synthroid -) 75 mcg GT DAILY@0700 [facility] Last Admin: 05/04/17 06:25 Dose: 75 mcg Lorazepam (Ativan -) 1 mg GT TID [facility] Last Admin: 05/04/17 06:25 Dose: 1 mg Multi-Ingredient Ointment (Zinc Oxide) 1 applic TP TID [facility] Last Admin: 05/04/17 06:25 Dose: 1 applic Pantoprazole Sodium (Protonix Packets For Oral Suspension -) 40 mg GT DAILY [facility] Piperacillin/Tazobactam/Dextrose (Zosyn 3.375gm Ivpb (Premix)) 3.375 gm IVPB Q8H-IV [facility] Quetiapine Fumarate (Seroquel -) 25 mg GT HS [facility] Last Admin: 05/03/17 23:29 Dose: 25 mg Sodium Chloride (Normal Saline -) 500 ml IV Q20M PRN PRN Reason: MAP<65mm Hg OR SBP <90 Last Admin: 05/03/17 17:59 Dose: 500 ml - Objective Vital Signs: Vital Signs Temperature 99.3 F 05/04/17 06:00 Pulse Rate 117 H 05/04/17 06:00 Respiratory Rate 20 05/04/17 06:00 Blood Pressure 123/75 05/04/17 06:00 O2 Sat by Pulse Oximetry (%) 96 05/03/17 19:53 Constitutional: Yes: Cachectic, Mild Distress Neck: Yes: Other (Trach) Cardiovascular: Yes: Regular Rate and Rhythm, S1, S2 Respiratory: Yes: WNL, Regular, CTA Bilaterally, Rhonchi, Wheezes Gastrointestinal: Yes: Soft, Other (PEG) Edema: No Labs: CBC, BMP 05/04/17 05:30 INR, PTT INR 1.07 (0.82-1.09) 05/03/17 15:40 Problem List - Problems (1) Pneumonia Code(s): J18.9 - PNEUMONIA, UNSPECIFIED ORGANISM (2) Lung cancer Code(s): C34.90 - MALIGNANT NEOPLASM OF UNSP PART OF UNSP BRONCHUS OR LUNG (3) Candidemia Code(s): B37.7 - CANDIDAL SEPSIS (4) UTI (urinary tract infection) Code(s): N39.0 - URINARY TRACT INFECTION, SITE NOT SPECIFIED Assessment/Plan Microbiology 05/03/17 15:40 Blood - Peripheral Venous Blood Culture - Preliminary Pending Organism Laboratory Tests 05/03/17 05/03/17 05/03/17 15:40 15:40 15:50 WBC 7.9 Hgb 9.0 L Hct 27.3 L Plt Count 227 Neutrophils % 72.0 Lymphocytes % 12.6 Monocytes % 11.7 H BUN 22 H Creatinine 0.5 L Creat Clearance w eGFR > 60 Total Bilirubin 0.3 AST 58 H ALT 46 Alkaline Phosphatase 161 H Ur Leukocyte Esterase 3+ H Urine WBC (Auto) 642 Urine RBC (Auto) 12 Assessment Bilateral infiltrates immunosurpressed host ? etiology Natty Candidemia wit a port a cath ELevated Alk phos Lung Cancer Plan Opthomology evaluation Repeat blood cultures via port Oncology evaluation Zosyn to continue LGA Sputum pending and urine Caspofungin Rambo WRIGHT
[2017-05-04] MEDS ORDERED: CASPOFUNGIN ACETATE 70 MG in SODIUM CHLORIDE 250 ML IVPB ONE (09:13)
--- NOTE | 2017-05-04 10:24 | CONSULT ---
Admitting History and Physical - Primary Care Physician PCP: Fatou Garcia - Admission History of Present Illness: Per ID This is a 76 year old female known Lung CA trach dependent with O2 resident of the [facility] Home admitted with couphing sputum production and hypoxemia. Found to have bilateral infiltrates and UTI. She is getting immunosurpressive therapy for lung CA and has a portacath for this purpose. Already blood cultures positive for YEAST Nursing note: on venti mas 50% o2 , no resp distress noted . Iv fluid running on port cath .G-tube present Noted to be on chopped food and thin liquid at [facility], being weaned from vent, used PMV. This is my first consult with this pt. 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 ) Cardiovascular: Yes: HTN, Hyperlipdemia Pulmonary: Yes: Other (lung cancer since 2002 ) Gastrointestinal: Yes: Other (CBD sludge) ...: No Heme/Onc: Yes: Cancer Endocrine: Yes: Diabetes Mellitus (diet managed) - Past Surgical History Past Surgical History: Yes: Cataract Removal (b/l) - Smoking History Smoking history: Former smoker Have you smoked in the past 12 months: No Aproximately how many cigarettes per day: 0 If you are a former smoker, when did you quit?: 1982 - Alcohol/Substance Use Hx Alcohol Use: No History - Admission Reason For Visit: UTI HYPOXIA, PNEUMONIA - Diagnostics X-ray: Report Reviewed CT Scan: Report Reviewed - General Mental Status: Alert and Oriented, Awake and Alert, Able to Follow Commands, Forgetful, Intermittently Confused (suspected) Attention: Intact Ability to Follow Directions: Good Head/Neck Control: WFL - Hearing Hearing: Normal Hearing Aide: No With Patient: No Speech Evaluation - Communication Primary Language: SPANISH - Speech Production Intelligibility: Yes: Mildly Impaired, Moderately Impaired (with trach/cuff deflated) - Speech Characteristics Voice Loudness: Excessive Variation (with trach/cuff deflated) Voice Phonatory-based Quality: Yes: Dysphonia, Vocal Wetness Speech Pattern: Impaired Speech Clarity: < 75% Nasal Resonance: Normal Articulation: Yes: Precise Voice, Other Observations: Yes: Inadequate Breath Support - Language/Auditory Comprehension Follows: Yes: 2 Stage Simple Commands - Language/Verbal Expression Functional Communication Status: Yes: Moderately Impaired (with trach/cuff deflated) - Swallow Evaluation/Bedside Assessment Current Nutritional Intake: NPO, G Tube Tracheostomy Present: Yes Patient on Ventilator: No Dentition: Yes: Adequate Facial Symmetry at Rest: Symmetrical Facial Symmetry on Retraction: Symmetrical Sensation: Normal Against Resistance Opening: Normal Against Resistance Closing: Normal Pucker Lips: Normal Smile: Normal Lingual Movement: Normal Lingual Speed of Movement: Normal Lingual Movement Strgth Against Opposition: Normal Lingual Movement Characteristics: Normal Velopharyngeal Movement: Normal Laryngeal Movement: Able to Palpate Labial Seal: WFL Oral Prep Time: WFL A-P Transit: WFL Pocketing: None Coughing/Throat Clear: Yes (with sip of water) Recommendations - Speech Evaluation, Impression/Plan Impression: Intermittent speech audibility with trach/cuff deflated. Coughing out loose secretions from trach. Pt taught to finger occlude trach for improved functional speech when PMV is off. Responsive cough with sip of water. r/o aspiration - Dysphagia Impressions/Plan Dysphagia Impressions: Ongoing Evaluation, Suspect Aspiration *Silent aspiration: cannot be R/O at bedside Recommendations: Modified Barium Swallow, Passy Mirian Valve (evaluation.)
[2017-05-04] MEDS: D5-1/2NS+20 MEQ KCL - 20 MEQ/1,000 ML INFUS.BAG IV SCH (11:30)
[2017-05-04] MEDS ORDERED: PT OWN MED DRAWER 7, Y5N ONE ×3 (11:32→19:00)
[2017-05-04] MEDS: amLODIPine BESYLATE 5 MG TABLET (FP) GT SCH (11:39)
[2017-05-04] MEDS: ESCITALOPRAM OXALATE 10 MG TABLET (FP) GT SCH (11:39)
[2017-05-04] MEDS: HEPARIN NA (PORCINE) 5,000 UNITS/ML 1ML VIAL SQ SCH ×2 (11:39→21:52)
[2017-05-04] MEDS: PANTOPRAZOLE SOD 40 MG SUSPENSION PACKET GT SCH (11:40)
--- NOTE | 2017-05-04 13:58 | HP ---
Admitting History and Physical - Admission History of Present Illness: Patient is a 76 y/o female with PMH of lung CA (previous chemotherapy and XRT, currently on imunotherapy (last given 04/29/17)), carotid stenosis, PVD, hypertension, hyperlipidemia, Trach/ PEG (since 03/03) and NIDDM (diet controlled) presenting with increased trach O2 requirement, lethargy, and new left sided lung infiltrates. 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 ) Cardiovascular: Yes: HTN, Hyperlipdemia Pulmonary: Yes: Other (lung cancer since 2002 ) Gastrointestinal: Yes: Other (CBD sludge) ...: No Heme/Onc: Yes: Cancer Endocrine: Yes: Diabetes Mellitus (diet managed) - Past Surgical History Past Surgical History: Yes: Cataract Removal (b/l) - Smoking History Smoking history: Former smoker Have you smoked in the past 12 months: No Aproximately how many cigarettes per day: 0 If you are a former smoker, when did you quit?: 1982 - Alcohol/Substance Use Hx Alcohol Use: No Home Medications - Allergies Allergies/Adverse Reactions: Allergies Allergy/AdvReac Type Severity Reaction Status Date / Time No Known Allergies Allergy Verified 05/03/17 14:19 - Home Medications Home Medications: Ambulatory Orders Acetaminophen [Pain Relief] 650 mg GT QID PRN 05/03/17 Amlodipine Besylate [Norvasc -] 5 mg GT DAILY 05/03/17 Aspirin [ASA -] 81 mg GT DAILY 05/03/17 Atorvastatin Ca [Lipitor] 20 mg GT HS 05/03/17 Cholecalciferol (Vitamin D3) [Vitamin D3 -] 800 units GT DAILY 05/03/17 Escitalopram Oxalate [Lexapro -] 10 mg GT DAILY 05/03/17 Ipratropium 0.02% Nebulizer [Atrovent] 1 neb NEB QID 05/03/17 Lansoprazole [Prevacid -] 30 mg GT DAILY 05/03/17 Levothyroxine [Synthroid -] 75 mcg GT DAILY 05/03/17 Lorazepam 1 mg GT TID 05/03/17 Multivitamin [One Daily] 1 each GT DAILY 05/03/17 Polyethylene Glycol 3350 [Laxaclear] 1 packet GT DAILY 05/03/17 Quetiapine Fumarate [Seroquel -] 25 mg GT HS 05/03/17 Valsartan [Diovan] 40 mg GT DAILY 05/03/17 Zinc Oxide 20% Topical Oint 454 gm NR TID 05/03/17 Family Disease History - Family Disease History Family Disease History: Diabetes: Mother (in her 70s-80s), Heart Disease: Father (ND in his 50s) Review of Systems - Review of Systems Respiratory: reports: No Symptoms Gastrointestinal: reports: No Symptoms Physical Examination Vital Signs: Vital Signs Temperature 97.4 F L 05/04/17 11:17 Pulse Rate 110 H 05/04/17 11:17 Respiratory Rate 20 05/04/17 11:17 Blood Pressure 133/74 05/04/17 11:17 O2 Sat by Pulse Oximetry (%) 95 05/04/17 10:40 Constitutional: Yes: Calm, Thin Neck: Yes: Other (trach) Cardiovascular: Yes: Regular Rate and Rhythm, Murmur, S1, S2 Respiratory: Yes: Diminished (on left side and right lower side) Gastrointestinal: Yes: Normal Bowel Sounds, Soft, Other (g tube) Edema: No Neurological: Yes: Alert, Oriented Labs: CBC, BMP 05/04/17 05:30 05/04/17 05:30 Imaging - Results Cat Scan: Report Reviewed (left upper lobe pna) Problem List - Problems (1) Pneumonia Assessment/Plan: bilateral infiltrate and uti on immuno suppresive therapy ID on board fungal treatment started, zosyn cultures pending s/p MBS today paussy jarrod valve to be used during meals pulm evaluation Code(s): J18.9 - PNEUMONIA, UNSPECIFIED ORGANISM (2) Lung cancer Assessment/Plan: s/p trach feeding tube on tube feeds dvt ppx Code(s): C34.90 - MALIGNANT NEOPLASM OF UNSP PART OF UNSP BRONCHUS OR LUNG (3) Hypothyroid Assessment/Plan: synthroid check tsh Code(s): E03.9 - HYPOTHYROIDISM, UNSPECIFIED (4) Tachycardia Assessment/Plan: maybe secondary to infection nimco get cardio to see patient as well Code(s): R00.0 - TACHYCARDIA, UNSPECIFIED
--- NOTE | 2017-05-04 14:02 | CONSULT ---
Passy-[place] Valve Eval - Assessment Prior to PMV Placement Patient and/or family educated re PMV: Yes Mental Status: Awake, Alert, Attempting to Communicate O2 Sat by Pulse Oximetry (%): 89 Patient on Ventilator: No Patient on Trach Collar: Yes Suctioned: Yes Inner Cannula Removed: No Cuff Status: Deflated Passy-Mirian Valve in Place - Speech Characteristics Able to Phonate with PMV in place: Yes Voice Loudness: Normal Voice Pitch: Normal Voice Phonatory-based Quality: Normal Speech Pattern: Normal Speech Clarity: < 100% Nasal Resonance: Normal Articulation: Precise Rate of Speech: Intact - Assessment with PMV in Place O2 Sat by Pulse Oximetry (%): 96 Change in Mental Status with PMV in Place: No Able to Manage Secretions: Yes Length of time with PMV in place: 10 - Recommendations Recommendations: PMV as tolerated, PMV with meals, Remove PMV while sleeping, Monitor Pulse Ox PMV on, Supervision while PMV on (Suction periodically. Encourage pt to cough and expectorate secretions out of her mouth when PMV in place.), Other (humidification of 02)
--- NOTE | 2017-05-04 15:28 | PN ---
Progress Note (short form) - Note Progress Note: PULMONARY CONSULTATION DICTATED 05/04/17 IMP ACUTE ON CHRONIC HYPOXEMIC RESPIRATORY FAILURE BILATERAL PNEUMONIA LUNG CA S/P RT/CHEMO CURRENTLY ON IMMUNOTHERAPY COPD O2 DEPENDENT S/P TRACH/PEG PVD CAROTID ARTERY DISEASE NIDDM PLAN O2 ANTIBIOTICS PER ID TRACHEAL SUCTIONING INHALED BRONCHODILATORS CULTURES F/U CHEST X-RAYS DR YOU Problem List - Problems (1) Acute on chronic respiratory failure with hypoxemia Code(s): J96.21 - ACUTE AND CHRONIC RESPIRATORY FAILURE WITH HYPOXIA (2) Hypothyroid Code(s): E03.9 - HYPOTHYROIDISM, UNSPECIFIED (3) Lung cancer Code(s): C34.90 - MALIGNANT NEOPLASM OF UNSP PART OF UNSP BRONCHUS OR LUNG (4) Pneumonia Code(s): J18.9 - PNEUMONIA, UNSPECIFIED ORGANISM (5) COPD (chronic obstructive pulmonary disease) Code(s): J44.9 - CHRONIC OBSTRUCTIVE PULMONARY DISEASE, UNSPECIFIED (6) Tracheostomy dependence Code(s): 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
--- NOTE | 2017-05-04 16:30 | CONSULT ---
Consult Consult Specialty:: onc Referred by:: IM Reason for Consultation:: lung cancer - History of Present Illness History of Present Illness: pt is 76 yof w loc adv adenoCa of lung. she was clin stable, tx'd 10+yrs w navelbine till recently. Over past year, she was worked up for prog hypoxia. Had prolonged hospitalization at [facility] in which she underwent bronch w bx which was non-diagnostic and she was felt to have lymphangitic dx. Required vent post -procedure and is s/p trache. Started salvage tx w opdivo w clin improvement and able to be weaned off vent. Now referred from rehab in setting of inc O2 requirements. She was placed on vent for 2 nites. Imgaging concerning for acute DUNCAN pna and informed per Dr Ricks that BCs are growing yeast - History Source History Provided By: Patient, Family Member, Medical Record - Past Medical History MUSIC ARTIST: Yes: TIA (? ) Cardio/Vascular: Yes: HTN, Hyperlipdemia Pulmonary: Yes: Other (lung cancer since 2002 ) Gastrointestinal: Yes: GI Bleed, Other (CBD sludge gib last hospitalization, req transfusions) Hepatobiliary: Yes: Other (intermittent inc in LFTs) ...: No Endocrine: Yes: Diabetes Mellitus (diet managed) - Past Surgical History Past Surgical History: Yes: Cataract Removal (b/l) - Alcohol/Substance Use Hx Alcohol Use: No - Smoking History Smoking history: Former smoker Have you smoked in the past 12 months: No Aproximately how many cigarettes per day: 0 If you are a former smoker, when did you quit?: 1982 - Social History Usual Living Arrangement: With Spouse Home Medications - Allergies Allergies/Adverse Reactions: Allergies Allergy/AdvReac Type Severity Reaction Status Date / Time No Known Allergies Allergy Verified 05/03/17 14:19 - Home Medications Home Medications: Ambulatory Orders Acetaminophen [Pain Relief] 650 mg GT QID PRN 05/03/17 Amlodipine Besylate [Norvasc -] 5 mg GT DAILY 05/03/17 Aspirin [ASA -] 81 mg GT DAILY 05/03/17 Atorvastatin Ca [Lipitor] 20 mg GT HS 05/03/17 Cholecalciferol (Vitamin D3) [Vitamin D3 -] 800 units GT DAILY 05/03/17 Escitalopram Oxalate [Lexapro -] 10 mg GT DAILY 05/03/17 Ipratropium 0.02% Nebulizer [Atrovent] 1 neb NEB QID 05/03/17 Lansoprazole [Prevacid -] 30 mg GT DAILY 05/03/17 Levothyroxine [Synthroid -] 75 mcg GT DAILY 05/03/17 Lorazepam 1 mg GT TID 05/03/17 Multivitamin [One Daily] 1 each GT DAILY 05/03/17 Polyethylene Glycol 3350 [Laxaclear] 1 packet GT DAILY 05/03/17 Quetiapine Fumarate [Seroquel -] 25 mg GT HS 05/03/17 Valsartan [Diovan] 40 mg GT DAILY 05/03/17 Zinc Oxide 20% Topical Oint 454 gm NR TID 05/03/17 Family Disease History - Family Disease History Family Disease History: Diabetes: Mother (in her 70s-80s), Heart Disease: Father (VT in his 50s) Physical Exam Vital Signs: Vital Signs Temperature 98.3 F 05/04/17 16:07 Pulse Rate 88 05/04/17 16:07 Respiratory Rate 18 05/04/17 16:07 Blood Pressure 110/55 05/04/17 16:07 O2 Sat by Pulse Oximetry (%) 96 05/04/17 14:01 Constitutional: Yes: Other ( chronically-ill appearing, NAD, thin) HENT: Yes: Other (trache) Cardiovascular: Yes: Regular Rate and Rhythm Respiratory: Yes: Cough (mucus via stoma; few R wheezes/gen dec bs) Gastrointestinal: Yes: Soft Edema: No Labs: CBC, BMP 05/04/17 05:30 05/04/17 05:30 Assessment/Plan loc adv lung cancer, hypoxic resp failure; fungemia. Ongoing nivolumab and was tolerating Appreciate pulm and ID mgmt antimicrobials per ID; possib PAC removal, await f/u cxs monitor h/h hold opdivo foll'ing w you
--- NOTE | 2017-05-04 17:20 | CONS ---
DATE OF CONSULTATION: INFECTIOUS DISEASE CONSULTATION DATE OF DICTATION: 05/04/2017 HISTORY OF PRESENT ILLNESS: This is a 75-year-old female with a known history oflung cancer status post chemotherapy which is ongoing. She is admitted from [facility] where she is a resident and apparently oxygen dependent via a tracheostomy. In the past she had required ventilator support. I spoke to he oncologist, . who noted that the patient has been receiving Nivolumab through a Port-A-Cath most recently. She has had lung cancer however for many years.She is brought now because of weakness and cough with sputum production along with hypoxemia. A CAT scan of the chest was reviewed which shows bilateral pulmonary infiltrates. She also appears to have evidence of aurinary tract infection based on her urinalysis. She has no fever or chills and does not appear acutely ill at this time. The patient is alert and able to offer history by way of writing on a piece of paper her complaints and questions. Blood cultures this morning reporting yeast in 1 set of blood cultures. PAST MEDICAL HISTORY: Includes non-insulin dependent diabetes, hypertension, peripheral vascular disease, carotid stenosis, COPD. CURRENT MEDICATIONS: Include piperacillin, tazobactam, Lexapro, Seroquel, Norvasc. ALLERGIES: None known. SOCIAL HISTORY: Former smoker. No history of alcohol use. Currently a resident of [facility]. FAMILY HISTORY: Reviewed and noncontributory. REVIEW OF SYSTEMS: Respiratory: History of lung cancer with tracheostomy, O2 dependent, increased sputum production, no hemoptysis. Cardiac: No chest pain, palpitations, syncope. Gastrointestinal: No abdominal pain. PEG feeding tube. No vomiting, diarrhea. Genitourinary: Positive dysuria, no hematuria, urinary frequency. PHYSICAL EXAMINATION: General: Revealed a cachectic thin woman alert and in no acute distress. Vital signs: Temperature currently is 99.3, pulse 117, blood pressure 123/75, respirations 20, and O2 is a 50% tracheostomy collar. HEENT: No oral candidiasis. Neck: Supple with tracheostomy. Lungs: Bilateral wheezing and scattered rhonchi. Heart: S1, S2. Regular rhythm. Without audible murmur. No audible gallop or murmur. Abdomen: Soft. Nontender. Without organomegaly. PEG feeding tube. Extremities: No clubbing, cyanosis, or edema. LABORATORY: The white count was 7.9 with a hemoglobin of 9, platelets of 227, 72% neutrophils, 13% lymphocytes, 12% monocytes. INR 1.07. BUN 22, creatinine 0.5, alkaline phosphatase 161, AST 58, bilirubin 0.3. Urinalysis with 642 WBCs, 3+ leukocyte esterase, RBCs 12. Chest x-ray shows bilateral pulmonary infiltrates. ASSESSMENT: A 76-year-old female with long history of lung cancer receiving immunosuppressive therapy with Nivolumab through a Port-A-Cath presents with worsening hypoxemia and bilateral pulmonary infiltrates. She also has evidence of urinary tract infection. New finding of positive blood culture for yeast in the setting of recent immunosuppressive therapy as well as an indwelling Port-A- Cath as a possible source of infection. PLAN: Empiric therapy for pneumonia with piperacillin tazobactam, sputum culture, and urine culture sent. Repeat blood cultures through the Port-A-Cath. Obtain an echocardiogram to look for evidence of alfonzo endocarditis. Ophthalmology consultation for possible alfonzo endophthalmitis. A decision will need to be reached regarding the removal of the Port-A-Cath, but will defer this for today. I have spoken to , her oncologist, who will see her in consultation. Further recommendations to follow. TREY MAJOR M.D. [id number] MTDD
--- NOTE | 2017-05-04 19:45 | CONS ---
DATE OF CONSULTATION: 05/04/2017 PULMONARY CONSULTATION REFERRING PHYSICIAN: Fatou Garcia M.D. The patient is a 76-year-old white female with past medical history of lung cancer status post chemotherapy, RT, currently maintained on immunotherapy last given April 29, 2017, carotid stenosis status post tracheostomy and PEG, insulin dependent diabetes mellitus, DVT, resident of [facility] and transferred to [facility] on May 03 secondary to increasing chest congestion, lethargy, and increasing O2 requirements over the past week. Patient was noted at the [facility] to be hypoxic on 8 L O2. She was transferred to [facility] with the above. On admission, she underwent a CAT scan and chest review with bilateral pneumonia left greater than right. Evaluated by Dr. Ricks for infectious disease and placed on broad spectrum antibiotics. The patient has history of tobacco use years ago. There is no history of occupational exposure to chemicals or fumes. PAST MEDICAL HISTORY: Again, includes lung cancer status post RT, chemotherapy, currently on immunotherapy, carotid stenosis, peripheral vascular disease, COPD status post tracheostomy, PEG, hyperlipidemia, hypertension, chronic hypoxic respiratory failure on O2, insulin dependent diabetes mellitus. CURRENT MEDICATIONS: Include caspofungin, piperacillin, Lexapro, heparin, Seroquel, Ativan, Norvasc, normal saline, Lipitor, zinc oxide, Protonix, Synthroid. REVIEW OF SYSTEMS: Positive shortness of breath. Positive chest congestion. No fever. No chills. No chest pain. No palpitations. No abdominal pain. PHYSICAL EXAMINATION: General: The patient is an elderly white female, well developed, thin, awake, alert, currently in no acute distress. Vital signs: She is afebrile. Blood pressure 133/74, respiratory rate 20, and O2 saturation is 96% on 50% tracheostomy collar . HEENT: Head is normocephalic, atraumatic. Neck: Supple. Heart: Regular. S1, S2. Chest: Scattered bilateral rhonchi. Abdomen: Soft. Bowel sounds positive. Extremities: No cyanosis, edema. LABORATORY: WBC 8.9, hemoglobin 10.5, hematocrit 33, platelet count 259,000. Venous blood gas: pH 7.38, pCO2 of 47, pO2 of 39, bicarbonate of 27, INR is 1.07. BUN 13, creatinine 0.6. Chest CT: Reveals a left upper lobe pneumonia patchy consolidation within the left upper lobe, dense consolidation in the left lower lobe, there was also some bronchiectatic changes right middle lobe and lower lobe. IMPRESSION: 1. Daeuc-gc-szyneec hypoxemic respiratory failure , pneumonia. 2. Lung carcinoma status post radiation therapy, chemotherapy, currently on immunotherapy. 3. Chronic obstructive pulmonary disease on oxygen. 4. Peripheral vascular disease. 5. Carotid artery disease. 6. Non-insulin dependent diabetes mellitus. PLAN: 1. Broad-spectrum antibiotics as per infectious disease to cover bacterial infection as well as fungal infection. 2. Inhaled bronchodilators, supplemental O2, pulmonary toilet, obtain followup chest x-rays, cultures. REN YOU M.D. [id number] MTDD
[2017-05-04] MEDS: ALBUTEROL SO4 2.5/IPRATROPIUM 0.5 INH SOL 3 ML VIAL.NEB. NEB PRN (19:49)
[2017-05-04] MEDS: ATORVASTATIN CA 20 MG TABLET (FP) GT SCH (21:48)
[2017-05-04] MEDS: QUEtiapine FUMARATE 25 MG TABLET (FP) GT SCH (21:51)
[2017-05-04] MEDS: PIPERACILLIN/TAZOB 3.375 GM 3.375 GM in DEXTROSE 5%-WATER - 100 ML IVPB SCH (21:51)
--- NOTE | 2017-05-05 01:32 | EKG ---
Test Reason : Blood Pressure : / mmHG Vent. Rate : 100 BPM Atrial Rate : 100 BPM P-R Int : 130 ms QRS Dur : 072 ms QT Int : 358 ms P-R-T Axes : 066 023 048 degrees QTc Int : 461 ms SINUS RHYTHM WITH OCCASIONAL PREMATURE VENTRICULAR COMPLEXES OTHERWISE NORMAL ECG WHEN COMPARED WITH ECG OF 23-OCT-2016 08:04, PREMATURE VENTRICULAR COMPLEXES ARE NOW PRESENT VENT. RATE HAS INCREASED Confirmed by JANNETTE WRIGHT, LOLA ([id number]) on 05/05/2017 1:32:12 AM Referred By: Confirmed By:LOLA BHATIA MD
[2017-05-05] MEDS: PIPERACILLIN/TAZOB 3.375 GM 3.375 GM in DEXTROSE 5%-WATER - 100 ML IVPB SCH ×4 (02:59→18:38)
[2017-05-05 06:06] LABS: SERUM IRON SATURATION 11 % (15-55); TOTAL IRON BINDING CAPACITY 175 ug/dL (250-450); UIBC 155 ug/dL (118-369)
[2017-05-05] MEDS: LORazepam 1 MG TABLET GT SCH ×3 (06:32→21:06)
[2017-05-05] MEDS: ZINC OXIDE 20% TOPICAL OINTMENT 30 GM TUBE TP SCH ×2 (06:32→14:23)
[2017-05-05] MEDS: LEVOTHYROXINE NA 75 MCG TABLET (FP) GT SCH (06:32)
[2017-05-05 07:56] LABS: BASO % 0.3 % (0-2.0); EOS % 1.8 % (0-4.5); HEMATOCRIT 29.2 % (32.4-45.2); HEMOGLOBIN 9.4 GM/dL (10.7-15.3); LYMPH % 10.3 % (8-40); MCH 27.8 pg (25.7-33.7); MCHC 32.4 g/dl (32.0-36.0); MEAN CELL VOLUME 85.8 fl (80-96); MEAN PLT VOLUME 7.6 fl (7.5-11.1); MONO % 9.3 % (3.8-10.2); NEUT % 78.3 % (42.8-82.8); PLATELET COUNT 249 K/MM3 (134-434); RDW 16.7 % (11.6-15.6); WHITE BLOOD COUNT 9.3 K/mm3 (4.0-10.0)
[2017-05-05 08:13] LABS: ALBUMIN 2.2 g/dl (3.4-5.0); ANION GAP 6 (8-16); BLOOD UREA NITROGEN 9 mg/dL (7-18); CALCIUM 7.5 mg/dL (8.5-10.1); CHLORIDE 103 mmol/L (98-107); CO2 27 mmol/L (21-32); CREATININE 0.6 mg/dL (0.55-1.02); GLUCOSE,RANDOM 137 mg/dL (74-106); POTASSIUM 3.7 mmol/L (3.5-5.1); SGOT/AST 32 U/L (15-37); SGPT/ALT 34 U/L (12-78); SODIUM 136 mmol/L (136-145); TOT PROT 5.4 g/dl (6.4-8.2)
[2017-05-05 08:18] LABS: CHOLESTEROL 119 mg/dL (50-200); HDL CHOLESTEROL 31 mg/dL (40-60); LDL CHOLESTEROL (ONLY SJRH) 68 mg/dL (5-100); TRIGLYCERIDES 132 mg/dL (35-160)
[2017-05-05 08:23] LABS: ALK PHOS 145 U/L (45-117); BILIRUBIN,TOTAL 0.4 mg/dL (0.2-1.0)
[2017-05-05] MEDS ORDERED: PT OWN MED DRAWER 7, Y5N ONE (10:32)
--- NOTE | 2017-05-05 10:48 | PN ---
Progress Note, Physician Chief Complaint: UTI History of Present Illness: on trach collar- 95%, NAD IV abx PEG feeding - Current Medication List Current Medications: Active Medications Acetaminophen (Tylenol Oral Solution -) 650 mg GT QID PRN PRN Reason: PAIN Last Admin: 05/03/17 20:13 Dose: 650 mg Albuterol/Ipratropium (Duoneb -) 1 amp NEB Q4H PRN PRN Reason: SHORTNESS OF BREATH Last Admin: 05/04/17 19:49 Dose: 1 amp Amlodipine Besylate (Norvasc -) 5 mg GT DAILY [facility] Last Admin: 05/04/17 11:39 Dose: 5 mg Atorvastatin Calcium (Lipitor -) 20 mg GT HS [facility] Last Admin: 05/04/17 21:48 Dose: 20 mg Escitalopram Oxalate (Lexapro -) 10 mg GT DAILY [facility] Last Admin: 05/04/17 11:39 Dose: 10 mg Heparin Sodium (Porcine) (Heparin -) 5,000 unit SQ BID [facility] Last Admin: 05/04/17 21:52 Dose: 5,000 unit Potassium Chloride/Dextrose/Sod Cl (D5-1/2ns+20 Meq Kcl -) 20 meq in 1,000 mls @ 75 mls/hr IV ASDIR [facility] Last Admin: 05/04/17 11:30 Dose: 75 mls/hr Piperacillin Sod/Tazobactam (Sod 3.375 gm/ Dextrose) 100 mls @ 200 mls/hr IVPB Q8H-IV [facility] PRN Reason: Protocol Last Admin: 05/05/17 04:10 Dose: 200 mls/hr Caspofungin 50 mg/ Sodium (Chloride) 250 mls @ 250 mls/hr IV DAILY [facility] Levothyroxine Sodium (Synthroid -) 75 mcg GT DAILY@0700 [facility] Last Admin: 05/05/17 06:32 Dose: 75 mcg Lorazepam (Ativan -) 1 mg GT TID [facility] Last Admin: 05/05/17 06:32 Dose: 1 mg Multi-Ingredient Ointment (Zinc Oxide) 1 applic TP TID [facility] Last Admin: 05/05/17 06:32 Dose: 1 applic Pantoprazole Sodium (Protonix Packets For Oral Suspension -) 40 mg GT DAILY [facility] Last Admin: 05/04/17 11:40 Dose: 40 mg Quetiapine Fumarate (Seroquel -) 25 mg GT HS [facility] Last Admin: 05/04/17 21:51 Dose: 25 mg Sodium Chloride (Normal Saline -) 500 ml IV Q20M PRN PRN Reason: MAP<65mm Hg OR SBP <90 Last Admin: 05/03/17 17:59 Dose: 500 ml - Objective Vital Signs: Vital Signs Temperature 98.7 F 05/05/17 09:57 Pulse Rate 97 H 05/05/17 09:57 Respiratory Rate 20 05/05/17 09:57 Blood Pressure 107/58 05/05/17 09:57 O2 Sat by Pulse Oximetry (%) 94 L 05/04/17 21:00 Constitutional: Yes: Well Nourished, No Distress, Calm Cardiovascular: Yes: Regular Rate and Rhythm Respiratory: Yes: Regular Labs: CBC, BMP 05/05/17 06:00 05/05/17 06:00 INR, PTT INR 1.07 (0.82-1.09) 05/03/17 15:40 Problem List - Problems (1) Acute on chronic respiratory failure with hypoxemia Assessment/Plan: TRACH COLLAR WITH O2 AND HUMIDIFICATION Code(s): J96.21 - ACUTE AND CHRONIC RESPIRATORY FAILURE WITH HYPOXIA (2) COPD (chronic obstructive pulmonary disease) Code(s): J44.9 - CHRONIC OBSTRUCTIVE PULMONARY DISEASE, UNSPECIFIED (3) History of lung cancer Assessment/Plan: -seen by oncology team -on immunotherapy Code(s): Z85.118 - PERSONAL HISTORY OF MALIGNANT NEOPLASM OF BRONCHUS AND LUNG (4) Leukocytosis Assessment/Plan: -afebrile -on IV abx -ID on board Code(s): D72.829 - ELEVATED WHITE BLOOD CELL COUNT, UNSPECIFIED (5) Tracheostomy dependence Code(s): Z93.0 - TRACHEOSTOMY STATUS Assessment/Plan see problem list GI/DVT prophylaxis PT
[2017-05-05] MEDS: HEPARIN NA (PORCINE) 5,000 UNITS/ML 1ML VIAL SQ SCH ×2 (11:05→21:06)
[2017-05-05] MEDS: CASPOFUNGIN ACETATE 50 MG in SODIUM CHLORIDE 250 ML IV SCH (11:05)
[2017-05-05] MEDS: ESCITALOPRAM OXALATE 10 MG TABLET (FP) GT SCH (11:06)
[2017-05-05] MEDS: amLODIPine BESYLATE 5 MG TABLET (FP) GT SCH (11:06)
[2017-05-05] MEDS: PANTOPRAZOLE SOD 40 MG SUSPENSION PACKET GT SCH (11:06)
[2017-05-05] MEDS ORDERED: IRON SUCROSE INJECTION 200 MG in SODIUM CHLORIDE 90 ML IVPB ONE (12:00)
--- NOTE | 2017-05-05 12:30 | PN ---
Progress Note, LANDSCAPE ARCHITECT - Note Progress Note: Selected Entries 05/04/17 05/04/17 05/04/17 06:00 11:17 16:07 Temperature 99.3 F 97.4 F L 98.3 F 05/04/17 05/04/17 05/05/17 18:00 22:00 05:41 Temperature 99.5 F 98.8 F 99.1 F 05/05/17 09:57 Temperature 98.7 F Laboratory Tests 05/05/17 06:00 WBC 9.3 Pt quite full, with little PO acceptance. However, pt is on significant TF, continuous x 24 hrs. Case discussed with pt and her , PNP, RD. For reduction of GT feeding, switched to nocturnal. Menu selection. Oral supplements b/n meals. PMV used, especially meal time. Refer to RD report re: nutritional plan.
--- NOTE | 2017-05-05 13:56 | PN ---
Progress Note (short form) - Note Progress Note: Saturation 95% on Trach collar. Afebrile. Intake & Output 05/02/17 05/03/17 05/04/17 05/05/17 23:59 23:59 23:59 23:59 Intake Total 20 3355 Balance 20 3355 Weight 105 lb 14.4 oz Last Vital Signs Temp Pulse Resp BP Pulse Ox 98.7 F 84 20 107/58 95 05/05/17 09:57 05/05/17 10:20 05/05/17 09:57 05/05/17 09:57 05/05/17 10:20 Active Medications Acetaminophen (Tylenol Oral Solution -) 650 mg GT QID PRN PRN Reason: PAIN Last Admin: 05/03/17 20:13 Dose: 650 mg Albuterol/Ipratropium (Duoneb -) 1 amp NEB Q4H PRN PRN Reason: SHORTNESS OF BREATH Last Admin: 05/04/17 19:49 Dose: 1 amp Amlodipine Besylate (Norvasc -) 5 mg GT DAILY [facility] Last Admin: 05/05/17 11:06 Dose: 5 mg Atorvastatin Calcium (Lipitor -) 20 mg GT HS [facility] Last Admin: 05/04/17 21:48 Dose: 20 mg Escitalopram Oxalate (Lexapro -) 10 mg GT DAILY [facility] Last Admin: 05/05/17 11:06 Dose: 10 mg Heparin Sodium (Porcine) (Heparin -) 5,000 unit SQ BID [facility] Last Admin: 05/05/17 11:05 Dose: 5,000 unit Potassium Chloride/Dextrose/Sod Cl (D5-1/2ns+20 Meq Kcl -) 20 meq in 1,000 mls @ 75 mls/hr IV ASDIR [facility] Last Admin: 05/04/17 11:30 Dose: 75 mls/hr Piperacillin Sod/Tazobactam (Sod 3.375 gm/ Dextrose) 100 mls @ 200 mls/hr IVPB Q8H-IV [facility] PRN Reason: Protocol Last Admin: 05/05/17 11:06 Dose: 200 mls/hr Caspofungin 50 mg/ Sodium (Chloride) 250 mls @ 250 mls/hr IV DAILY [facility] Last Admin: 05/05/17 11:05 Dose: 250 mls/hr Levothyroxine Sodium (Synthroid -) 75 mcg GT DAILY@0700 [facility] Last Admin: 05/05/17 06:32 Dose: 75 mcg Lorazepam (Ativan -) 1 mg GT TID [facility] Last Admin: 05/05/17 06:32 Dose: 1 mg Multi-Ingredient Ointment (Zinc Oxide) 1 applic TP TID [facility] Last Admin: 05/05/17 06:32 Dose: 1 applic Pantoprazole Sodium (Protonix Packets For Oral Suspension -) 40 mg GT DAILY [facility] Last Admin: 05/05/17 11:06 Dose: 40 mg Quetiapine Fumarate (Seroquel -) 25 mg GT HS [facility] Last Admin: 05/04/17 21:51 Dose: 25 mg Sodium Chloride (Normal Saline -) 500 ml IV Q20M PRN PRN Reason: MAP<65mm Hg OR SBP <90 Last Admin: 05/03/17 17:59 Dose: 500 ml Constitutional: Yes: NAD, Thin Neck: Yes: Other (trach) Cardiovascular: Yes: Regular Rate and Rhythm, Murmur, S1, S2 Respiratory: Yes: Basilar rhonchi, no wheeze Gastrointestinal: Yes: Normal Bowel Sounds, Soft, Other (g tube) Edema: No Neurological: Yes: Alert, Oriented Labs: Laboratory Results - last 24 hr 05/03/17 05/05/17 05/05/17 15:40 06:00 06:00 WBC 9.3 RBC 3.40 L Hgb 9.4 L D Hct 29.2 L MCV 85.8 MCH 27.8 MCHC 32.4 RDW 16.7 H Plt Count 249 MPV 7.6 Neutrophils % 78.3 Lymphocytes % 10.3 D Monocytes % 9.3 Eosinophils % 1.8 Basophils % 0.3 Sodium 136 Potassium 3.7 Chloride 103 Carbon Dioxide 27 Anion Gap 6 L BUN 9 D Creatinine 0.6 Creat Clearance w eGFR > 60 Random Glucose 137 H D Calcium 7.5 L Iron 20 L TIBC 175 L Iron Saturation 11 L Total Bilirubin 0.4 AST 32 D ALT 34 D Alkaline Phosphatase 145 H Total Protein 5.4 L Albumin 2.2 L Triglycerides Cholesterol Total LDL Cholesterol HDL Cholesterol TSH 1.89 D Stool Occult Blood 05/05/17 05/05/17 06:00 11:00 WBC RBC Hgb Hct MCV MCH MCHC RDW Plt Count MPV Neutrophils % Lymphocytes % Monocytes % Eosinophils % Basophils % Sodium Potassium Chloride Carbon Dioxide Anion Gap BUN Creatinine Creat Clearance w eGFR Random Glucose Calcium Iron TIBC Iron Saturation Total Bilirubin AST ALT Alkaline Phosphatase Total Protein Albumin Triglycerides 132 Cholesterol 119 Total LDL Cholesterol 68 HDL Cholesterol 31 L TSH Stool Occult Blood Negative Problem List - Problems (1) Acute on chronic respiratory failure with hypoxemia Code(s): J96.21 - ACUTE AND CHRONIC RESPIRATORY FAILURE WITH HYPOXIA (2) Hypothyroid Code(s): E03.9 - HYPOTHYROIDISM, UNSPECIFIED (3) Lung cancer Code(s): C34.90 - MALIGNANT NEOPLASM OF UNSP PART OF UNSP BRONCHUS OR LUNG (4) Pneumonia Code(s): J18.9 - PNEUMONIA, UNSPECIFIED ORGANISM (5) COPD (chronic obstructive pulmonary disease) Code(s): J44.9 - CHRONIC OBSTRUCTIVE PULMONARY DISEASE, UNSPECIFIED (6) Tracheostomy dependence Code(s): 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 IMP ACUTE ON CHRONIC HYPOXEMIC RESPIRATORY FAILURE BILATERAL PNEUMONIA LUNG CA S/P RT/CHEMO CURRENTLY ON IMMUNOTHERAPY COPD O2 DEPENDENT S/P TRACH/PEG PVD CAROTID ARTERY DISEASE NIDDM PLAN O2 ANTIBIOTICS PER ID TRACHEAL SUCTIONING INHALED BRONCHODILATORS FOLLOW CULTURES VTE PROPHYLAXIS DR MURPHY
--- NOTE | 2017-05-05 14:44 | PN ---
Progress Note, Physician History of Present Illness: Awake, alert No c/o chest pain/ dyspnea No fever/ chills Tachypneic at rest + tracheal secretions Additional BC bottle + yeast Tolerating Zosyn/ Cancidas - Current Medication List Current Medications: Active Medications Acetaminophen (Tylenol Oral Solution -) 650 mg GT QID PRN PRN Reason: PAIN Last Admin: 05/03/17 20:13 Dose: 650 mg Albuterol/Ipratropium (Duoneb -) 1 amp NEB Q4H PRN PRN Reason: SHORTNESS OF BREATH Last Admin: 05/04/17 19:49 Dose: 1 amp Amlodipine Besylate (Norvasc -) 5 mg GT DAILY [facility] Last Admin: 05/05/17 11:06 Dose: 5 mg Atorvastatin Calcium (Lipitor -) 20 mg GT HS [facility] Last Admin: 05/04/17 21:48 Dose: 20 mg Escitalopram Oxalate (Lexapro -) 10 mg GT DAILY [facility] Last Admin: 05/05/17 11:06 Dose: 10 mg Heparin Sodium (Porcine) (Heparin -) 5,000 unit SQ BID [facility] Last Admin: 05/05/17 11:05 Dose: 5,000 unit Potassium Chloride/Dextrose/Sod Cl (D5-1/2ns+20 Meq Kcl -) 20 meq in 1,000 mls @ 75 mls/hr IV ASDIR [facility] Last Admin: 05/04/17 11:30 Dose: 75 mls/hr Piperacillin Sod/Tazobactam (Sod 3.375 gm/ Dextrose) 100 mls @ 200 mls/hr IVPB Q8H-IV [facility] PRN Reason: Protocol Last Admin: 05/05/17 11:06 Dose: 200 mls/hr Caspofungin 50 mg/ Sodium (Chloride) 250 mls @ 250 mls/hr IV DAILY [facility] Last Admin: 05/05/17 11:05 Dose: 250 mls/hr Levothyroxine Sodium (Synthroid -) 75 mcg GT DAILY@0700 [facility] Last Admin: 05/05/17 06:32 Dose: 75 mcg Lorazepam (Ativan -) 1 mg GT TID [facility] Last Admin: 05/05/17 14:22 Dose: 1 mg Multi-Ingredient Ointment (Zinc Oxide) 1 applic TP TID [facility] Last Admin: 05/05/17 14:23 Dose: 1 applic Pantoprazole Sodium (Protonix Packets For Oral Suspension -) 40 mg GT DAILY [facility] Last Admin: 05/05/17 11:06 Dose: 40 mg Quetiapine Fumarate (Seroquel -) 25 mg GT HS [facility] Last Admin: 05/04/17 21:51 Dose: 25 mg Sodium Chloride (Normal Saline -) 500 ml IV Q20M PRN PRN Reason: MAP<65mm Hg OR SBP <90 Last Admin: 05/03/17 17:59 Dose: 500 ml - Objective Vital Signs: Vital Signs Temperature 98.7 F 05/05/17 09:57 Pulse Rate 84 05/05/17 10:20 Respiratory Rate 20 05/05/17 09:57 Blood Pressure 107/58 05/05/17 09:57 O2 Sat by Pulse Oximetry (%) 95 05/05/17 10:20 Constitutional: Yes: No Distress, Cachectic Cardiovascular: Yes: Regular Rate and Rhythm, S1, S2 Respiratory: Yes: Other (+ scatterred rhonchi, bibasilar crepitations) Gastrointestinal: Yes: Normal Bowel Sounds, Soft. No: Tenderness Edema: No Integumentary: Yes: Other (port site no erythema/ tenderness) Labs: CBC, BMP 05/05/17 06:00 05/05/17 06:00 INR, PTT INR 1.07 (0.82-1.09) 05/03/17 15:40 Assessment/Plan Bibasilar pneumonia + sputum c/s LF Fungemia Lung ca UTI LF, NLF Obtain additional BC peripherally and via port Await final c/s result Continue zosyn/ cancidas
[2017-05-05] MEDS: D5-1/2NS+20 MEQ KCL - 20 MEQ/1,000 ML INFUS.BAG IV SCH (18:39)
[2017-05-05] MEDS: ALBUTEROL SO4 2.5/IPRATROPIUM 0.5 INH SOL 3 ML VIAL.NEB. NEB PRN ×2 (18:59→22:40)
[2017-05-05] MEDS: ATORVASTATIN CA 20 MG TABLET (FP) GT SCH (21:06)
[2017-05-05] MEDS: QUEtiapine FUMARATE 25 MG TABLET (FP) GT SCH (21:06)
[2017-05-06] MEDS: ZINC OXIDE 20% TOPICAL OINTMENT 30 GM TUBE TP SCH ×4 (01:01→21:45)
[2017-05-06] MEDS: PIPERACILLIN/TAZOB 3.375 GM 3.375 GM in DEXTROSE 5%-WATER - 100 ML IVPB SCH ×3 (02:43→17:32)
[2017-05-06] MEDS: LEVOTHYROXINE NA 75 MCG TABLET (FP) GT SCH (06:35)
[2017-05-06] MEDS: ALBUTEROL SO4 2.5/IPRATROPIUM 0.5 INH SOL 3 ML VIAL.NEB. NEB PRN (06:35)
[2017-05-06] MEDS: LORazepam 1 MG TABLET GT SCH ×3 (06:35→21:44)
[2017-05-06 08:21] LABS: HEMATOCRIT 29.6 % (32.4-45.2); HEMOGLOBIN 9.4 GM/dL (10.7-15.3); MCH 27.1 pg (25.7-33.7); MCHC 31.8 g/dl (32.0-36.0); MEAN CELL VOLUME 85.4 fl (80-96); MEAN PLT VOLUME 7.8 fl (7.5-11.1); PLATELET COUNT 259 K/MM3 (134-434); RBC 3.46 M/mm3 (3.60-5.2); RDW 16.7 % (11.6-15.6); WHITE BLOOD COUNT 11.3 K/mm3 (4.0-10.0)
[2017-05-06 08:55] LABS: CHLORIDE 103 mmol/L (98-107); POTASSIUM 3.5 mmol/L (3.5-5.1); SODIUM 138 mmol/L (136-145)
--- NOTE | 2017-05-06 09:03 | PN ---
Progress Note, Physician Chief Complaint: ID Caspofungin and Zosyn - Current Medication List Current Medications: Active Medications Acetaminophen (Tylenol Oral Solution -) 650 mg GT QID PRN PRN Reason: PAIN Last Admin: 05/03/17 20:13 Dose: 650 mg Albuterol/Ipratropium (Duoneb -) 1 amp NEB Q4H PRN PRN Reason: SHORTNESS OF BREATH Last Admin: 05/06/17 06:35 Dose: 1 amp Amlodipine Besylate (Norvasc -) 5 mg GT DAILY [facility] Last Admin: 05/05/17 11:06 Dose: 5 mg Atorvastatin Calcium (Lipitor -) 20 mg GT HS [facility] Last Admin: 05/05/17 21:06 Dose: 20 mg Escitalopram Oxalate (Lexapro -) 10 mg GT DAILY [facility] Last Admin: 05/05/17 11:06 Dose: 10 mg Heparin Sodium (Porcine) (Heparin -) 5,000 unit SQ BID [facility] Last Admin: 05/05/17 21:06 Dose: 5,000 unit Potassium Chloride/Dextrose/Sod Cl (D5-1/2ns+20 Meq Kcl -) 20 meq in 1,000 mls @ 75 mls/hr IV ASDIR [facility] Last Admin: 05/05/17 18:39 Dose: 75 mls/hr Piperacillin Sod/Tazobactam (Sod 3.375 gm/ Dextrose) 100 mls @ 200 mls/hr IVPB Q8H-IV [facility] PRN Reason: Protocol Last Admin: 05/06/17 02:43 Dose: 200 mls/hr Caspofungin 50 mg/ Sodium (Chloride) 250 mls @ 250 mls/hr IV DAILY [facility] Last Admin: 05/05/17 11:05 Dose: 250 mls/hr Levothyroxine Sodium (Synthroid -) 75 mcg GT DAILY@0700 [facility] Last Admin: 05/06/17 06:35 Dose: 75 mcg Lorazepam (Ativan -) 1 mg GT TID [facility] Last Admin: 05/06/17 06:35 Dose: 1 mg Multi-Ingredient Ointment (Zinc Oxide) 1 applic TP TID [facility] Last Admin: 05/06/17 06:42 Dose: 1 applic Pantoprazole Sodium (Protonix Packets For Oral Suspension -) 40 mg GT DAILY [facility] Last Admin: 05/05/17 11:06 Dose: 40 mg Quetiapine Fumarate (Seroquel -) 25 mg GT HS [facility] Last Admin: 05/05/17 21:06 Dose: 25 mg Sodium Chloride (Normal Saline -) 500 ml IV Q20M PRN PRN Reason: MAP<65mm Hg OR SBP <90 Last Admin: 05/03/17 17:59 Dose: 500 ml - Objective Vital Signs: Vital Signs Temperature 97.5 F L 05/06/17 05:59 Pulse Rate 97 H 05/06/17 05:59 Respiratory Rate 18 05/06/17 05:59 Blood Pressure 124/65 05/06/17 05:59 O2 Sat by Pulse Oximetry (%) 96 05/05/17 22:40 Constitutional: Yes: Cachectic Neck: Yes: Other (Tracheostomy) Respiratory: Yes: Rales, Rhonchi Gastrointestinal: Yes: WNL, Normal Bowel Sounds, Soft. No: Tenderness Edema: No Labs: CBC, BMP 05/06/17 06:30 INR, PTT INR 1.07 (0.82-1.09) 05/03/17 15:40 Problem List - Problems (1) Pneumonia Code(s): J18.9 - PNEUMONIA, UNSPECIFIED ORGANISM (2) Lung cancer Code(s): C34.90 - MALIGNANT NEOPLASM OF UNSP PART OF UNSP BRONCHUS OR LUNG (3) Candidemia Code(s): B37.7 - CANDIDAL SEPSIS (4) UTI (urinary tract infection) Code(s): N39.0 - URINARY TRACT INFECTION, SITE NOT SPECIFIED Assessment/Plan Microbiology 05/03/17 18:30 Sputum - Endotracheal Suction W/O Vent Gram Stain - Final 05/04/17 06:00 Serum Cryptococcal Antigen - Preliminary 05/03/17 18:30 Sputum - Endotracheal Suction W/O Vent Sputum Culture - Preliminary Lactose Fermenting Neg Bacilli 05/03/17 15:50 Urine - Urine - Catheterized Urine Culture - Preliminary Lactose Fermenting Neg Bacilli Non Lactose Fermenting Gnb 05/03/17 15:50 Blood - Peripheral Venous Blood Culture - Preliminary Pending Organism 05/03/17 15:40 Blood - Peripheral Venous Blood Culture - Preliminary Yeast Like Organism Laboratory Tests 05/05/17 05/06/17 06:00 06:30 WBC 11.3 H Hgb 9.4 L Hct 29.6 L Plt Count 259 BUN 9 D Creatinine 0.6 Assessment Fungemia ?port related Pneumonia Lung CA Plan Continue current antimicrobials Port should probably be removed Repeat blood cultures sent Rambo WRIGHT
[2017-05-06 09:06] LABS: ALBUMIN 2.3 g/dl (3.4-5.0); ALK PHOS 136 U/L (45-117); ANION GAP 8 (8-16); BILIRUBIN,TOTAL 0.4 mg/dL (0.2-1.0); BLOOD UREA NITROGEN 6 mg/dL (7-18); CO2 27 mmol/L (21-32); CREATININE 0.6 mg/dL (0.55-1.02); GLUCOSE,RANDOM 110 mg/dL (74-106); SGOT/AST 27 U/L (15-37); SGPT/ALT 32 U/L (12-78); TOT PROT 5.6 g/dl (6.4-8.2)
--- NOTE | 2017-05-06 10:55 | PN ---
Progress Note, Physician Chief Complaint: UTI History of Present Illness: feeling much better seen by Speech and swallow, PO intake improved PEG feeding only at night -seen by pulmonary and ID -ID recommendation to remove the port -Spoke to Spencer Marino who is in agreement of port removal -on IV abx and antifungal -Echo reviewed, EF 60% with no LV dysfunction, chronic anemia repeat CXR today -afebrile -Spoke to Rodolfo Flood-ophthalmology, no need for ophthalmology consult unless ocular symptoms occur - Current Medication List Current Medications: Active Medications Acetaminophen (Tylenol Oral Solution -) 650 mg GT QID PRN PRN Reason: PAIN Last Admin: 05/03/17 20:13 Dose: 650 mg Albuterol/Ipratropium (Duoneb -) 1 amp NEB Q4H PRN PRN Reason: SHORTNESS OF BREATH Last Admin: 05/06/17 06:35 Dose: 1 amp Amlodipine Besylate (Norvasc -) 5 mg GT DAILY [facility] Last Admin: 05/05/17 11:06 Dose: 5 mg Atorvastatin Calcium (Lipitor -) 20 mg GT HS [facility] Last Admin: 05/05/17 21:06 Dose: 20 mg Escitalopram Oxalate (Lexapro -) 10 mg GT DAILY [facility] Last Admin: 05/05/17 11:06 Dose: 10 mg Heparin Sodium (Porcine) (Heparin -) 5,000 unit SQ BID [facility] Last Admin: 05/05/17 21:06 Dose: 5,000 unit Potassium Chloride/Dextrose/Sod Cl (D5-1/2ns+20 Meq Kcl -) 20 meq in 1,000 mls @ 75 mls/hr IV ASDIR [facility] Last Admin: 05/05/17 18:39 Dose: 75 mls/hr Piperacillin Sod/Tazobactam (Sod 3.375 gm/ Dextrose) 100 mls @ 200 mls/hr IVPB Q8H-IV [facility] PRN Reason: Protocol Last Admin: 05/06/17 02:43 Dose: 200 mls/hr Caspofungin 50 mg/ Sodium (Chloride) 250 mls @ 250 mls/hr IV DAILY [facility] Last Admin: 05/05/17 11:05 Dose: 250 mls/hr Levothyroxine Sodium (Synthroid -) 75 mcg GT DAILY@0700 [facility] Last Admin: 05/06/17 06:35 Dose: 75 mcg Lorazepam (Ativan -) 1 mg GT TID [facility] Last Admin: 05/06/17 06:35 Dose: 1 mg Multi-Ingredient Ointment (Zinc Oxide) 1 applic TP TID [facility] Last Admin: 05/06/17 06:42 Dose: 1 applic Pantoprazole Sodium (Protonix Packets For Oral Suspension -) 40 mg GT DAILY [facility] Last Admin: 05/05/17 11:06 Dose: 40 mg Quetiapine Fumarate (Seroquel -) 25 mg GT HS [facility] Last Admin: 05/05/17 21:06 Dose: 25 mg Sodium Chloride (Normal Saline -) 500 ml IV Q20M PRN PRN Reason: MAP<65mm Hg OR SBP <90 Last Admin: 05/03/17 17:59 Dose: 500 ml - Objective Vital Signs: Vital Signs Temperature 98.3 F 05/06/17 09:20 Pulse Rate 101 H 05/06/17 09:20 Respiratory Rate 20 05/06/17 09:20 Blood Pressure 155/74 05/06/17 09:20 O2 Sat by Pulse Oximetry (%) 96 05/05/17 22:40 Constitutional: Yes: Well Nourished, No Distress, Calm Cardiovascular: Yes: Regular Rate and Rhythm Respiratory: Yes: Regular Musculoskeletal: Yes: WNL Extremities: Yes: WNL Edema: No Peripheral Pulses WNL: Yes Neurological: Yes: Alert, Oriented Psychiatric: Yes: Alert, Oriented Labs: CBC, BMP 05/06/17 06:30 05/06/17 06:30 INR, PTT INR 1.07 (0.82-1.09) 05/03/17 15:40 Problem List - Problems (1) Fungemia Assessment/Plan: -IV antifungal Code(s): B49 - UNSPECIFIED MYCOSIS (2) History of lung cancer Assessment/Plan: -seen by oncology team Code(s): Z85.118 - PERSONAL HISTORY OF MALIGNANT NEOPLASM OF BRONCHUS AND LUNG (3) Pulmonary infiltrate on chest x-ray Assessment/Plan: -repeat CXR today -pulmonary on board -[facility] Code(s): R91.8 - OTHER NONSPECIFIC ABNORMAL FINDING OF LUNG FIELD (4) Acute on chronic respiratory failure with hypoxemia Code(s): J96.21 - ACUTE AND CHRONIC RESPIRATORY FAILURE WITH HYPOXIA (5) Leukocytosis Assessment/Plan: -afebrile -on IV abx -repeat labs in AM -ID on board Code(s): D72.829 - ELEVATED WHITE BLOOD CELL COUNT, UNSPECIFIED Assessment/Plan see problem list physical therapy DVT prophylaxis
[2017-05-06] MEDS ORDERED: PT OWN MED DRAWER 7, Y5N ONE (10:57)
[2017-05-06] MEDS: CASPOFUNGIN ACETATE 50 MG in SODIUM CHLORIDE 250 ML IV SCH (11:00)
[2017-05-06] MEDS: amLODIPine BESYLATE 5 MG TABLET (FP) GT SCH (11:01)
[2017-05-06] MEDS: ESCITALOPRAM OXALATE 10 MG TABLET (FP) GT SCH (11:01)
[2017-05-06] MEDS: D5-1/2NS+20 MEQ KCL - 20 MEQ/1,000 ML INFUS.BAG IV SCH ×2 (11:01→18:08)
[2017-05-06] MEDS: PANTOPRAZOLE SOD 40 MG SUSPENSION PACKET GT SCH (11:01)
[2017-05-06] MEDS: HEPARIN NA (PORCINE) 5,000 UNITS/ML 1ML VIAL SQ SCH ×2 (11:01→21:44)
[2017-05-06 11:18] LABS: ANISOCYTOSIS 1+; MACROCYTOSIS 0; PLATELET ESTIMATE NORMAL
--- NOTE | 2017-05-06 13:41 | PN ---
Progress Note, Physician History of Present Illness: PULMONARY ALERT,LESS CONGESTED,AFEBRILE,+ YEAST IN BLOOD - Current Medication List Current Medications: Active Medications Acetaminophen (Tylenol Oral Solution -) 650 mg GT QID PRN PRN Reason: PAIN Last Admin: 05/03/17 20:13 Dose: 650 mg Albuterol/Ipratropium (Duoneb -) 1 amp NEB Q4H PRN PRN Reason: SHORTNESS OF BREATH Last Admin: 05/06/17 06:35 Dose: 1 amp Amlodipine Besylate (Norvasc -) 5 mg GT DAILY [facility] Last Admin: 05/06/17 11:01 Dose: 5 mg Atorvastatin Calcium (Lipitor -) 20 mg GT HS [facility] Last Admin: 05/05/17 21:06 Dose: 20 mg Escitalopram Oxalate (Lexapro -) 10 mg GT DAILY [facility] Last Admin: 05/06/17 11:01 Dose: 10 mg Heparin Sodium (Porcine) (Heparin -) 5,000 unit SQ BID [facility] Last Admin: 05/06/17 11:01 Dose: 5,000 unit Potassium Chloride/Dextrose/Sod Cl (D5-1/2ns+20 Meq Kcl -) 20 meq in 1,000 mls @ 75 mls/hr IV ASDIR [facility] Last Admin: 05/06/17 11:01 Dose: 75 mls/hr Piperacillin Sod/Tazobactam (Sod 3.375 gm/ Dextrose) 100 mls @ 200 mls/hr IVPB Q8H-IV [facility] PRN Reason: Protocol Last Admin: 05/06/17 11:00 Dose: 200 mls/hr Caspofungin 50 mg/ Sodium (Chloride) 250 mls @ 250 mls/hr IV DAILY [facility] Last Admin: 05/06/17 11:00 Dose: 250 mls/hr Levothyroxine Sodium (Synthroid -) 75 mcg GT DAILY@0700 [facility] Last Admin: 05/06/17 06:35 Dose: 75 mcg Lorazepam (Ativan -) 1 mg GT TID [facility] Last Admin: 05/06/17 06:35 Dose: 1 mg Multi-Ingredient Ointment (Zinc Oxide) 1 applic TP TID [facility] Last Admin: 05/06/17 06:42 Dose: 1 applic Pantoprazole Sodium (Protonix Packets For Oral Suspension -) 40 mg GT DAILY [facility] Last Admin: 05/06/17 11:01 Dose: 40 mg Quetiapine Fumarate (Seroquel -) 25 mg GT HS [facility] Last Admin: 05/05/17 21:06 Dose: 25 mg Sodium Chloride (Normal Saline -) 500 ml IV Q20M PRN PRN Reason: MAP<65mm Hg OR SBP <90 Last Admin: 05/03/17 17:59 Dose: 500 ml - Objective Vital Signs: Vital Signs Temperature 98.3 F 05/06/17 09:20 Pulse Rate 105 H 05/06/17 12:44 Respiratory Rate 20 05/06/17 09:20 Blood Pressure 155/74 05/06/17 09:20 O2 Sat by Pulse Oximetry (%) 94 L 05/06/17 12:45 Constitutional: Yes: Calm, Thin Eyes: Yes: WNL HENT: Yes: WNL Neck: Yes: Supple Cardiovascular: Yes: Regular Rate and Rhythm, S1, S2 Respiratory: Yes: Rhonchi (FEW RHONCHI) Gastrointestinal: Yes: Normal Bowel Sounds, Soft Extremities: Yes: WNL Edema: No Labs: CBC, BMP 05/06/17 06:30 05/06/17 06:30 INR, PTT INR 1.07 (0.82-1.09) 05/03/17 15:40 Problem List - Problems (1) Acute on chronic respiratory failure with hypoxemia Code(s): J96.21 - ACUTE AND CHRONIC RESPIRATORY FAILURE WITH HYPOXIA (2) Hypothyroid Code(s): E03.9 - HYPOTHYROIDISM, UNSPECIFIED (3) Lung cancer Code(s): C34.90 - MALIGNANT NEOPLASM OF UNSP PART OF UNSP BRONCHUS OR LUNG (4) Pneumonia Code(s): J18.9 - PNEUMONIA, UNSPECIFIED ORGANISM (5) COPD (chronic obstructive pulmonary disease) Code(s): J44.9 - CHRONIC OBSTRUCTIVE PULMONARY DISEASE, UNSPECIFIED (6) Tracheostomy dependence Code(s): 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 Assessment/Plan IMP ACUTE ON CHRONIC HYPOXEMIC RESPIRATORY FAILURE BILATERAL PNEUMONIA LUNG CA S/P RT/CHEMO CURRENTLY ON IMMUNOTHERAPY COPD O2 DEPENDENT S/P TRACH/PEG PVD CAROTID ARTERY DISEASE NIDDM PLAN O2 ANTIBIOTICS PER ID TRACHEAL SUCTIONING INHALED BRONCHODILATORS CULTURES F/U CHEST X-RAYS DR YOU Problem List - Problems (1) Acute on chronic respiratory failure with hypoxemia Code(s): J96.21 - ACUTE AND CHRONIC RESPIRATORY FAILURE WITH HYPOXIA (2) Hypothyroid Code(s): E03.9 - HYPOTHYROIDISM, UNSPECIFIED (3) Lung cancer Code(s): C34.90 - MALIGNANT NEOPLASM OF UNSP PART OF UNSP BRONCHUS OR LUNG (4) Pneumonia Code(s): J18.9 - PNEUMONIA, UNSPECIFIED ORGANISM (5) COPD (chronic obstructive pulmonary disease) Code(s): J44.9 - CHRONIC OBSTRUCTIVE PULMONARY DISEASE, UNSPECIFIED (6) Tracheostomy dependence Code(s): 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
--- NOTE | 2017-05-06 15:02 | PN ---
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 Using PMV with good voicing, and improved communication and spirits. Remove PMV when pt sleeps.
[2017-05-06] MEDS: QUEtiapine FUMARATE 25 MG TABLET (FP) GT SCH (21:44)
[2017-05-06] MEDS: ATORVASTATIN CA 20 MG TABLET (FP) GT SCH (21:44)
[2017-05-07] MEDS ORDERED: PORTA CATH FLUSH 10 ML IVPUSH PRN (01:04)
[2017-05-07] MEDS ORDERED: PT OWN MED DRAWER 7, Y5N ONE ×2 (01:45→10:56)
[2017-05-07] MEDS: D5-1/2NS+20 MEQ KCL - 20 MEQ/1,000 ML INFUS.BAG IV SCH ×3 (01:56→21:48)
[2017-05-07] MEDS: PIPERACILLIN/TAZOB 3.375 GM 3.375 GM in DEXTROSE 5%-WATER - 100 ML IVPB SCH ×3 (01:56→18:49)
[2017-05-07] MEDS: LEVOTHYROXINE NA 75 MCG TABLET (FP) GT SCH (06:39)
[2017-05-07] MEDS: LORazepam 1 MG TABLET GT SCH ×3 (06:40→21:05)
[2017-05-07] MEDS: ZINC OXIDE 20% TOPICAL OINTMENT 30 GM TUBE TP SCH ×3 (06:40→21:06)
[2017-05-07 07:12] LABS: HEMATOCRIT 29.4 % (32.4-45.2); HEMOGLOBIN 9.6 GM/dL (10.7-15.3); MCH 27.6 pg (25.7-33.7); MCHC 32.4 g/dl (32.0-36.0); MEAN CELL VOLUME 84.9 fl (80-96); MEAN PLT VOLUME 7.5 fl (7.5-11.1); PLATELET COUNT 275 K/MM3 (134-434); RBC 3.47 M/mm3 (3.60-5.2); WHITE BLOOD COUNT 13.4 K/mm3 (4.0-10.0)
[2017-05-07 07:13] LABS: ALBUMIN 2.4 g/dl (3.4-5.0); ALK PHOS 146 U/L (45-117); ANION GAP 10 (8-16); BILIRUBIN,TOTAL 0.4 mg/dL (0.2-1.0); BLOOD UREA NITROGEN 8 mg/dL (7-18); CALCIUM 8.1 mg/dL (8.5-10.1); CHLORIDE 101 mmol/L (98-107); CO2 27 mmol/L (21-32); CREATININE 0.6 mg/dL (0.55-1.02); GLUCOSE,RANDOM 136 mg/dL (74-106); POTASSIUM 3.6 mmol/L (3.5-5.1); SGOT/AST 28 U/L (15-37); SGPT/ALT 31 U/L (12-78); SODIUM 138 mmol/L (136-145); TOT PROT 5.9 g/dl (6.4-8.2)
--- NOTE | 2017-05-07 07:49 | CONSULT ---
Consult Consult Specialty:: general surgery Referred by:: Rosalee Elizondo Reason for Consultation:: fungemia and chemoport - History of Present Illness Chief Complaint: fungemia History of Present Illness: 76 yo female with PMH of lung CA (previous chemotherapy and XRT, currently on imunotherapy (last given 04/29/17)), carotid stenosis, PVD, hypertension, hyperlipidemia, Trach/ PEG (since 03/03) and NIDDM (diet controlled) presenting with increased trach O2 requirement, lethargy, and new left sided lung infiltrates. Patient has had increasing O2 requirements over the past week and has been hypoxic on her 8L trachea O2. Port last accessed 04/29 for immunotherapy at [facility] with Dr. Cronin. Double chemo port placed by Dr. Noland. ID recommended removal of the port. We were asked to assess. 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 ) Cardio/Vascular: Yes: HTN, Hyperlipdemia Pulmonary: Yes: Other (lung cancer since 2002 ) Gastrointestinal: Yes: GI Bleed, Other (CBD sludge gib last hospitalization, req transfusions) Hepatobiliary: Yes: Other (intermittent inc in LFTs) ...: No Endocrine: Yes: Diabetes Mellitus (diet managed) - Past Surgical History Past Surgical History: Yes: Cataract Removal (b/l) - Alcohol/Substance Use Hx Alcohol Use: No - Smoking History Smoking history: Former smoker Have you smoked in the past 12 months: No Aproximately how many cigarettes per day: 0 If you are a former smoker, when did you quit?: 1982 - Social History Usual Living Arrangement: With Spouse Home Medications - Allergies Allergies/Adverse Reactions: Allergies Allergy/AdvReac Type Severity Reaction Status Date / Time No Known Allergies Allergy Verified 05/03/17 14:19 - Home Medications Home Medications: Ambulatory Orders Acetaminophen [Pain Relief] 650 mg GT QID PRN 05/03/17 Amlodipine Besylate [Norvasc -] 5 mg GT DAILY 05/03/17 Aspirin [ASA -] 81 mg GT DAILY 05/03/17 Atorvastatin Ca [Lipitor] 20 mg GT HS 05/03/17 Cholecalciferol (Vitamin D3) [Vitamin D3 -] 800 units GT DAILY 05/03/17 Escitalopram Oxalate [Lexapro -] 10 mg GT DAILY 05/03/17 Ipratropium 0.02% Nebulizer [Atrovent] 1 neb NEB QID 05/03/17 Lansoprazole [Prevacid -] 30 mg GT DAILY 05/03/17 Levothyroxine [Synthroid -] 75 mcg GT DAILY 05/03/17 Lorazepam 1 mg GT TID 05/03/17 Multivitamin [One Daily] 1 each GT DAILY 05/03/17 Polyethylene Glycol 3350 [Laxaclear] 1 packet GT DAILY 05/03/17 Quetiapine Fumarate [Seroquel -] 25 mg GT HS 05/03/17 Valsartan [Diovan] 40 mg GT DAILY 05/03/17 Zinc Oxide 20% Topical Oint 454 gm NR TID 05/03/17 Family Disease History - Family Disease History Family Disease History: Diabetes: Mother (in her 70s-80s), Heart Disease: Father ([place] in his 50s) Review of Systems - Review of Systems Constitutional: reports: Fever. denies: Chills Eyes: denies: Blurred Vision, Recent Change in Vision HENT: reports: Other (Tracheostomy). denies: Difficult Swallowing, Throat Pain Neck: reports: Tenderness. denies: Stiffness, Swollen Glands Cardiovascular: denies: Chest Pain, Palpitations Respiratory: reports: Cough, SOB Gastrointestinal: denies: Abdominal Pain, Diarrhea Musculoskeletal: denies: Muscle Cramps, Muscle Weakness Integumentary: denies: Lesions, Rash Neurological: reports: Change in Speech. denies: Seizure Endocrine: denies: Unexplained Weight Gain, Unexplained Weight Loss Hematology/Lymphatic: denies: Easily Bruised, Excessive Bleeding Psychiatric: reports: Depression. denies: Anxiety Physical Exam Vital Signs: Vital Signs Temperature 99.0 F 05/07/17 06:00 Pulse Rate 108 H 05/07/17 06:00 Respiratory Rate 20 05/07/17 06:00 Blood Pressure 143/79 05/07/17 06:00 O2 Sat by Pulse Oximetry (%) 92 L 05/06/17 22:00 Vital Signs Period Temp Pulse Resp BP Sys/Her Pulse Ox Last 24 Hr 98.3 F-99.2 F 99-109 20-22 101-155/61-79 92-94 Intake & Output 05/06/17 05/06/17 05/07/17 15:59 23:59 07:59 Intake Total 660 1010 1592.5 Balance 660 1010 1592.5 Intake: IV 910 862.5 D5-1/2NS+20 MEQ KCL - 20 900 862.5 meq In 1,000 ml @ 75 mls/ hr IV ASDIR [facility]AT[facility] Rx#: [id number] saline lock 10 IVPB 350 100 100 Oral 310 0 Tube Feeding 450 Tube Irrigant 180 Other: Voiding Method Diaper Incontinent # Unmeasured Voids Void 1 1 Bowel Movement Yes No No # Bowel Movements 1 Constitutional: Yes: No Distress, Calm, Cachectic Eyes: Yes: Conjunctiva Clear, EOM Intact HENT: Yes: Atraumatic, Normocephalic Neck: Yes: Trachea Midline, Other (tracheostomy with valve) Cardiovascular: Yes: Regular Rate and Rhythm, S1, S2 Respiratory: Yes: Regular, Diminished (bilaterally), Dullness, Poor Air Entry, SOB Gastrointestinal: Yes: Normal Bowel Sounds, Soft, Other (PEG in place). No: Tenderness, Tenderness, Epigastrium, Tenderness, Rebound Renal/: No: CVA Tenderness - Left, CVA Tenderness - Right Extremities: No: Cool, Cyanosis Edema: No Integumentary: No: Jaundice Wound/Incision: Yes: Clean/Dry, Other (2cm incison right anterior chest with palpable double chemoport) Neurological: Yes: Alert, Oriented Psychiatric: Yes: Alert, Oriented Labs: CBC, BMP 05/07/17 06:20 05/07/17 06:20 INR, PTT INR 1.07 (0.82-1.09) 05/03/17 15:40 Microbiology 05/05/17 15:10 Blood - Peripheral Venous Blood Culture - Preliminary NO GROWTH OBTAINED AFTER 24 HOURS, INCUBATION TO CONTINUE FOR 4 DAYS. 05/05/17 15:05 Blood - Peripheral Venous Blood Culture - Preliminary NO GROWTH OBTAINED AFTER 24 HOURS, INCUBATION TO CONTINUE FOR 4 DAYS. 05/03/17 18:30 Sputum - Endotracheal Suction W/O Vent Gram Stain - Final 05/03/17 18:30 Sputum - Endotracheal Suction W/O Vent Sputum Culture - Preliminary Lactose Fermenting Neg Bacilli 05/03/17 15:50 Blood - Peripheral Venous Blood Culture - Final Yeast Like Organism 05/03/17 15:40 Blood - Peripheral Venous Yeast/Fungus Identification - Preliminary 05/03/17 15:40 Blood - Peripheral Venous Blood Culture - Final Yeast Like Organism 05/05/17 17:10 Sputum - Endotracheal Suction W/O Vent DOROTEO Preparation - Preliminary 05/05/17 17:10 Sputum - Endotracheal Suction W/O Vent Fungal Culture - Preliminary 05/05/17 19:30 Urine - Urine - Catheterized Legionella Antigen - Final 05/05/17 19:30 Urine - Urine - Catheterized Streptococcus pneumoniae Antigen (M - Final 05/03/17 15:50 Urine - Urine - Catheterized Urine Culture - Final Klebsiella Pneumoniae Pseudomonas Aeruginosa 05/04/17 06:00 Serum Cryptococcal Antigen - Preliminary Imaging - Results Chest X-ray: Report Reviewed, Image Reviewed (double chemo port right anterior chest) Problem List - Problems (1) Fungemia Assessment/Plan: 76yo female MMP including lung cancer and tracheostoy dependence presented with hypoxemia and found to have fungemia (final speciation pending) on empiric antibiotic and antifungal therapy, ID recommended to have the port removed. INR 1.07, no additional anticoagulant. Dr. Cronin confirmed that there would be no negative impact of removal of the port on current therapy [phone] and [phone], and likely replacement would not be required. bedside removal of chemo port informed consent obtained for removal of chemoport discussed with patient risks , benefits and alternatives of procedure, including but not limited to bleeding , infection, injury to adjacent structures, need for further procedures, ; alternatives include antibiotics, delayed or no surgery - risks of this include failure of nonoperative therapy, perforation, sepsis, recurrence, . Patient desires to proceed with procedure. daily wound care to the site continue antibiotics and antifungal per ID f/u cultures daily wound care Recall once clear for replacement if required Thank you for the opportunity to participate in the care of this patient. Code(s): B49 - UNSPECIFIED MYCOSIS (2) Candidemia Code(s): B37.7 - CANDIDAL SEPSIS (3) Acute on chronic respiratory failure with hypoxemia Code(s): J96.21 - ACUTE AND CHRONIC RESPIRATORY FAILURE WITH HYPOXIA (4) History of lung cancer Code(s): Z85.118 - PERSONAL HISTORY OF MALIGNANT NEOPLASM OF BRONCHUS AND LUNG (5) Tracheostomy dependence Code(s): Z93.0 - TRACHEOSTOMY STATUS
[2017-05-07 09:04] LABS: PLATELET ESTIMATE ADEQUATE
[2017-05-07] MEDS ORDERED: LIDOCAINE HCL 1%, 10 MG/ML (50 mL VIAL) SQ ONE (09:27)
[2017-05-07] MEDS ORDERED: LIDOCAINE HCL 1%, 10 MG/ML (20ML VIAL) ONE ×2 (09:28→10:11)
[2017-05-07] MEDS ORDERED: LIDOCAINE HCL 2% (50ML VIAL) SQ ONE (09:32)
[2017-05-07] MEDS: ACETAMINOPHEN 650 MG/20.3 ML ORAL SOLUTION (CUPS) GT PRN (10:08)
[2017-05-07] MEDS ORDERED: LIDOCAINE HCL 1%, 10 MG/ML (50 mL VIAL) NR ONE (10:30)
[2017-05-07] MEDS: CASPOFUNGIN ACETATE 50 MG in SODIUM CHLORIDE 250 ML IV SCH (11:05)
[2017-05-07] MEDS: HEPARIN NA (PORCINE) 5,000 UNITS/ML 1ML VIAL SQ SCH ×2 (11:05→21:06)
[2017-05-07] MEDS: ESCITALOPRAM OXALATE 10 MG TABLET (FP) GT SCH (11:06)
[2017-05-07] MEDS: amLODIPine BESYLATE 5 MG TABLET (FP) GT SCH (11:06)
[2017-05-07] MEDS: PANTOPRAZOLE SOD 40 MG SUSPENSION PACKET GT SCH (11:06)
--- NOTE | 2017-05-07 11:24 | PN ---
Progress Note, Physician Chief Complaint: UTI History of Present Illness: feeling much better seen by Speech and swallow, PO intake improved PEG feeding only at night -seen by pulmonary and ID -ID recommendation to remove the port -Port removed by surgery today -on IV abx and antifungal -Echo reviewed, EF 60% with no LV dysfunction, chronic anemia repeat CXR no change -afebrile - Current Medication List Current Medications: Active Medications Acetaminophen (Tylenol Oral Solution -) 650 mg GT QID PRN PRN Reason: PAIN Last Admin: 05/07/17 10:08 Dose: 650 mg Albuterol/Ipratropium (Duoneb -) 1 amp NEB Q4H PRN PRN Reason: SHORTNESS OF BREATH Last Admin: 05/06/17 06:35 Dose: 1 amp Amlodipine Besylate (Norvasc -) 5 mg GT DAILY [facility] Last Admin: 05/07/17 11:06 Dose: 5 mg Atorvastatin Calcium (Lipitor -) 20 mg GT HS [facility] Last Admin: 05/06/17 21:44 Dose: 20 mg Escitalopram Oxalate (Lexapro -) 10 mg GT DAILY [facility] Last Admin: 05/07/17 11:06 Dose: 10 mg Heparin Sodium (Porcine) (Heparin -) 5,000 unit SQ BID [facility] Last Admin: 05/07/17 11:05 Dose: 5,000 unit IV Flush (Santos-Cath Flush) 10 ml IVPUSH PRN PRN PRN Reason: FLUSH Potassium Chloride/Dextrose/Sod Cl (D5-1/2ns+20 Meq Kcl -) 20 meq in 1,000 mls @ 75 mls/hr IV ASDIR [facility] Last Admin: 05/07/17 01:56 Dose: 75 mls/hr Piperacillin Sod/Tazobactam (Sod 3.375 gm/ Dextrose) 100 mls @ 200 mls/hr IVPB Q8H-IV [facility] PRN Reason: Protocol Last Admin: 05/07/17 11:05 Dose: 200 mls/hr Caspofungin 50 mg/ Sodium (Chloride) 250 mls @ 250 mls/hr IV DAILY [facility] Last Admin: 05/07/17 11:05 Dose: 250 mls/hr Levothyroxine Sodium (Synthroid -) 75 mcg GT DAILY@0700 [facility] Last Admin: 05/07/17 06:39 Dose: 75 mcg Lorazepam (Ativan -) 1 mg GT TID [facility] Last Admin: 05/07/17 06:40 Dose: 1 mg Multi-Ingredient Ointment (Zinc Oxide) 1 applic TP TID [facility] Last Admin: 05/07/17 06:40 Dose: 1 applic Pantoprazole Sodium (Protonix Packets For Oral Suspension -) 40 mg GT DAILY [facility] Last Admin: 05/07/17 11:06 Dose: 40 mg Quetiapine Fumarate (Seroquel -) 25 mg GT HS [facility] Last Admin: 05/06/17 21:44 Dose: 25 mg Sodium Chloride (Normal Saline -) 500 ml IV Q20M PRN PRN Reason: MAP<65mm Hg OR SBP <90 Last Admin: 05/03/17 17:59 Dose: 500 ml - Objective Vital Signs: Vital Signs Temperature 99.0 F 05/07/17 06:00 Pulse Rate 108 H 05/07/17 06:00 Respiratory Rate 20 05/07/17 06:00 Blood Pressure 143/79 05/07/17 06:00 O2 Sat by Pulse Oximetry (%) 92 L 05/06/17 22:00 Constitutional: Yes: Well Nourished, No Distress, Calm Cardiovascular: Yes: Regular Rate and Rhythm Respiratory: Yes: Regular Gastrointestinal: Yes: Normal Bowel Sounds Musculoskeletal: Yes: WNL Extremities: Yes: WNL Edema: No Peripheral Pulses WNL: Yes Neurological: Yes: Alert, Oriented Psychiatric: Yes: Alert, Oriented Labs: CBC, BMP 05/07/17 06:20 05/07/17 06:20 INR, PTT INR 1.07 (0.82-1.09) 05/03/17 15:40 Problem List - Problems (1) Fungemia Assessment/Plan: -IV antifungal Code(s): B49 - UNSPECIFIED MYCOSIS (2) History of lung cancer Assessment/Plan: -seen by oncology team -on immunotherapy Code(s): Z85.118 - PERSONAL HISTORY OF MALIGNANT NEOPLASM OF BRONCHUS AND LUNG (3) Pulmonary infiltrate on chest x-ray Assessment/Plan: -repeat CXR no change -pulmonary on board -neb tx Code(s): R91.8 - OTHER NONSPECIFIC ABNORMAL FINDING OF LUNG FIELD (4) Acute on chronic respiratory failure with hypoxemia Code(s): J96.21 - ACUTE AND CHRONIC RESPIRATORY FAILURE WITH HYPOXIA (5) Leukocytosis Assessment/Plan: -afebrile -repeat BC negative -on IV abx -repeat labs in AM -ID on board Code(s): D72.829 - ELEVATED WHITE BLOOD CELL COUNT, UNSPECIFIED Assessment/Plan see problem list physical therapy DVT prophylaxis
[2017-05-07] MEDS: PIPERACIL/TAZOB 3.375 GM 3.375 GM/50 ML PREMIX IVPB SCH (11:45)
--- NOTE | 2017-05-07 12:27 | PN ---
Progress Note (short form) - Note Progress Note: Awake and alert. Some ocongested cough. CXR : no PTX, no changes in infiltrates Intake & Output 05/04/17 05/05/17 05/06/17 05/07/17 23:59 23:59 23:59 23:59 Intake Total 3355 2860 2720 1702.5 Balance 3355 2860 2720 1702.5 Last Vital Signs Temp Pulse Resp BP Pulse Ox 99.0 F 104 H 20 143/79 93 L 05/07/17 06:00 05/07/17 11:37 05/07/17 06:00 05/07/17 06:00 05/07/17 11:37 Active Medications Acetaminophen (Tylenol Oral Solution -) 650 mg GT QID PRN PRN Reason: PAIN Last Admin: 05/07/17 10:08 Dose: 650 mg Albuterol/Ipratropium (Duoneb -) 1 amp NEB Q4H PRN PRN Reason: SHORTNESS OF BREATH Last Admin: 05/06/17 06:35 Dose: 1 amp Amlodipine Besylate (Norvasc -) 5 mg GT DAILY [facility] Last Admin: 05/07/17 11:06 Dose: 5 mg Atorvastatin Calcium (Lipitor -) 20 mg GT HS [facility] Last Admin: 05/06/17 21:44 Dose: 20 mg Escitalopram Oxalate (Lexapro -) 10 mg GT DAILY [facility] Last Admin: 05/07/17 11:06 Dose: 10 mg Heparin Sodium (Porcine) (Heparin -) 5,000 unit SQ BID [facility] Last Admin: 05/07/17 11:05 Dose: 5,000 unit IV Flush (Santos-Cath Flush) 10 ml IVPUSH PRN PRN PRN Reason: FLUSH Potassium Chloride/Dextrose/Sod Cl (D5-1/2ns+20 Meq Kcl -) 20 meq in 1,000 mls @ 75 mls/hr IV ASDIR [facility] Last Admin: 05/07/17 01:56 Dose: 75 mls/hr Piperacillin Sod/Tazobactam (Sod 3.375 gm/ Dextrose) 100 mls @ 200 mls/hr IVPB Q8H-IV [facility] PRN Reason: Protocol Last Admin: 05/07/17 11:05 Dose: 200 mls/hr Caspofungin 50 mg/ Sodium (Chloride) 250 mls @ 250 mls/hr IV DAILY [facility] Last Admin: 05/07/17 11:05 Dose: 250 mls/hr Levothyroxine Sodium (Synthroid -) 75 mcg GT DAILY@0700 [facility] Last Admin: 05/07/17 06:39 Dose: 75 mcg Lorazepam (Ativan -) 1 mg GT TID [facility] Last Admin: 05/07/17 06:40 Dose: 1 mg Multi-Ingredient Ointment (Zinc Oxide) 1 applic TP TID [facility] Last Admin: 05/07/17 06:40 Dose: 1 applic Pantoprazole Sodium (Protonix Packets For Oral Suspension -) 40 mg GT DAILY [facility] Last Admin: 05/07/17 11:06 Dose: 40 mg Quetiapine Fumarate (Seroquel -) 25 mg GT HS [facility] Last Admin: 05/06/17 21:44 Dose: 25 mg Sodium Chloride (Normal Saline -) 500 ml IV Q20M PRN PRN Reason: MAP<65mm Hg OR SBP <90 Last Admin: 05/03/17 17:59 Dose: 500 ml Constitutional: Yes: NAD, Thin Eyes: Yes: WNL HENT: Yes: Trach intact Neck: Yes: Supple Cardiovascular: Yes: Regular Rate and Rhythm, S1, S2 Respiratory: Yes: Bilateral scattered Rhonchi Gastrointestinal: Yes: Normal Bowel Sounds, Soft Extremities: Yes: WNL Edema: No Labs: Laboratory Results - last 24 hr 05/07/17 05/07/17 06:20 06:20 WBC 13.4 H RBC 3.47 L Hgb 9.6 L Hct 29.4 L MCV 84.9 MCH 27.6 MCHC 32.4 RDW 17.0 H Plt Count 275 MPV 7.5 Total Counted 100 Neutrophils % No Result Required. Neutrophils % (Manual) 80.0 D Lymphocytes % No Result Required. Lymphocytes % (Manual) 11.0 Monocytes % (Manual) 4 Eosinophils % (Manual) 2.0 D Myelocytes % (Man) 1 D Metamyelocytes 2 D Platelet Estimate Adequate Sodium 138 Potassium 3.6 Chloride 101 Carbon Dioxide 27 Anion Gap 10 BUN 8 D Creatinine 0.6 Creat Clearance w eGFR > 60 Random Glucose 136 H D Calcium 8.1 L Total Bilirubin 0.4 AST 28 ALT 31 Alkaline Phosphatase 146 H Total Protein 5.9 L Albumin 2.4 L Problem List - Problems (1) Acute on chronic respiratory failure with hypoxemia Code(s): J96.21 - ACUTE AND CHRONIC RESPIRATORY FAILURE WITH HYPOXIA (2) Hypothyroid Code(s): E03.9 - HYPOTHYROIDISM, UNSPECIFIED (3) Lung cancer Code(s): C34.90 - MALIGNANT NEOPLASM OF UNSP PART OF UNSP BRONCHUS OR LUNG (4) Pneumonia Code(s): J18.9 - PNEUMONIA, UNSPECIFIED ORGANISM (5) COPD (chronic obstructive pulmonary disease) Code(s): J44.9 - CHRONIC OBSTRUCTIVE PULMONARY DISEASE, UNSPECIFIED (6) Tracheostomy dependence Code(s): 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 Assessment/Plan IMP ACUTE ON CHRONIC HYPOXEMIC RESPIRATORY FAILURE BILATERAL PNEUMONIA LUNG CA S/P RT/CHEMO CURRENTLY ON IMMUNOTHERAPY COPD O2 DEPENDENT S/P TRACH/PEG PVD CAROTID ARTERY DISEASE NIDDM PLAN O2 as needed ANTIBIOTICS PER ID TRACHEAL SUCTIONING INHALED BRONCHODILATORS FOLLOW CULTURES Dr Delvalle
--- NOTE | 2017-05-07 14:46 | PN ---
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 Pt "never ate breakfast" but enjoyed her turkey sandwich for lunch with good tolerance. Pt feels appetite improving. Tolerating upgraded diet. Dislikes Magic cup. Trial other PO supplement?
--- NOTE | 2017-05-07 16:01 | PN ---
Progress Note, Physician History of Present Illness: Awake, alert No c/o chest pain/ dyspnea No fever/ chills Breathing non-labored at rest + tracheal secretions Port removed Repeat BC no growth Tolerating Zosyn/ Cancidas - Current Medication List Current Medications: Active Medications Acetaminophen (Tylenol Oral Solution -) 650 mg GT QID PRN PRN Reason: PAIN Last Admin: 05/07/17 10:08 Dose: 650 mg Albuterol/Ipratropium (Duoneb -) 1 amp NEB Q4H PRN PRN Reason: SHORTNESS OF BREATH Last Admin: 05/06/17 06:35 Dose: 1 amp Amlodipine Besylate (Norvasc -) 5 mg GT DAILY [facility] Last Admin: 05/07/17 11:06 Dose: 5 mg Atorvastatin Calcium (Lipitor -) 20 mg GT HS [facility] Last Admin: 05/06/17 21:44 Dose: 20 mg Escitalopram Oxalate (Lexapro -) 10 mg GT DAILY [facility] Last Admin: 05/07/17 11:06 Dose: 10 mg Heparin Sodium (Porcine) (Heparin -) 5,000 unit SQ BID [facility] Last Admin: 05/07/17 11:05 Dose: 5,000 unit IV Flush (Santos-Cath Flush) 10 ml IVPUSH PRN PRN PRN Reason: FLUSH Potassium Chloride/Dextrose/Sod Cl (D5-1/2ns+20 Meq Kcl -) 20 meq in 1,000 mls @ 75 mls/hr IV ASDIR [facility] Last Admin: 05/07/17 01:56 Dose: 75 mls/hr Piperacillin Sod/Tazobactam (Sod 3.375 gm/ Dextrose) 100 mls @ 200 mls/hr IVPB Q8H-IV [facility] PRN Reason: Protocol Last Admin: 05/07/17 11:05 Dose: 200 mls/hr Caspofungin 50 mg/ Sodium (Chloride) 250 mls @ 250 mls/hr IV DAILY [facility] Last Admin: 05/07/17 11:05 Dose: 250 mls/hr Levothyroxine Sodium (Synthroid -) 75 mcg GT DAILY@0700 [facility] Last Admin: 05/07/17 06:39 Dose: 75 mcg Lorazepam (Ativan -) 1 mg GT TID [facility] Last Admin: 05/07/17 15:04 Dose: 1 mg Multi-Ingredient Ointment (Zinc Oxide) 1 applic TP TID [facility] Last Admin: 05/07/17 15:07 Dose: 1 applic Pantoprazole Sodium (Protonix Packets For Oral Suspension -) 40 mg GT DAILY [facility] Last Admin: 05/07/17 11:06 Dose: 40 mg Quetiapine Fumarate (Seroquel -) 25 mg GT HS [facility] Last Admin: 05/06/17 21:44 Dose: 25 mg Sodium Chloride (Normal Saline -) 500 ml IV Q20M PRN PRN Reason: MAP<65mm Hg OR SBP <90 Last Admin: 05/03/17 17:59 Dose: 500 ml - Objective Vital Signs: Vital Signs Temperature 97.8 F 05/07/17 14:17 Pulse Rate 96 H 05/07/17 14:17 Respiratory Rate 22 05/07/17 14:17 Blood Pressure 119/69 05/07/17 14:17 O2 Sat by Pulse Oximetry (%) 93 L 05/07/17 11:37 Constitutional: Yes: No Distress, Cachectic Cardiovascular: Yes: Regular Rate and Rhythm, S1, S2 Respiratory: Yes: Rhonchi, Wheezes, Other (+ bilateral rhonchi, wheeze) Gastrointestinal: Yes: Normal Bowel Sounds, Soft. No: Tenderness Edema: No Labs: CBC, BMP 05/07/17 06:20 05/07/17 06:20 INR, PTT INR 1.07 (0.82-1.09) 05/03/17 15:40 Assessment/Plan Bibasilar pneumonia Fungemia Lung ca UTI Continue zosyn/ cancidas
[2017-05-07] MEDS: ALBUTEROL SO4 2.5/IPRATROPIUM 0.5 INH SOL 3 ML VIAL.NEB. NEB PRN ×2 (16:17→23:15)
[2017-05-07] MEDS: QUEtiapine FUMARATE 25 MG TABLET (FP) GT SCH (21:06)
[2017-05-07] MEDS: ATORVASTATIN CA 20 MG TABLET (FP) GT SCH (21:06)
[2017-05-08] MEDS: PIPERACILLIN/TAZOB 3.375 GM 3.375 GM in DEXTROSE 5%-WATER - 100 ML IVPB SCH (02:38)
[2017-05-08] MEDS: LEVOTHYROXINE NA 75 MCG TABLET (FP) GT SCH (06:33)
[2017-05-08] MEDS: LORazepam 1 MG TABLET GT SCH ×3 (06:33→21:09)
[2017-05-08] MEDS: ZINC OXIDE 20% TOPICAL OINTMENT 30 GM TUBE TP SCH ×3 (06:33→21:29)
--- NOTE | 2017-05-08 08:51 | PN ---
Progress Note, Physician Chief Complaint: ID Port removal Cancidas and Paul Looks comfortable - Current Medication List Current Medications: Active Medications Acetaminophen (Tylenol Oral Solution -) 650 mg GT QID PRN PRN Reason: PAIN Last Admin: 05/07/17 10:08 Dose: 650 mg Albuterol/Ipratropium (Duoneb -) 1 amp NEB Q4H PRN PRN Reason: SHORTNESS OF BREATH Last Admin: 05/07/17 23:15 Dose: 1 amp Amlodipine Besylate (Norvasc -) 5 mg GT DAILY [facility] Last Admin: 05/07/17 11:06 Dose: 5 mg Atorvastatin Calcium (Lipitor -) 20 mg GT HS [facility] Last Admin: 05/07/17 21:06 Dose: 20 mg Escitalopram Oxalate (Lexapro -) 10 mg GT DAILY [facility] Last Admin: 05/07/17 11:06 Dose: 10 mg Heparin Sodium (Porcine) (Heparin -) 5,000 unit SQ BID [facility] Last Admin: 05/07/17 21:06 Dose: 5,000 unit IV Flush (Santos-Cath Flush) 10 ml IVPUSH PRN PRN PRN Reason: FLUSH Potassium Chloride/Dextrose/Sod Cl (D5-1/2ns+20 Meq Kcl -) 20 meq in 1,000 mls @ 75 mls/hr IV ASDIR [facility] Last Admin: 05/07/17 21:48 Dose: 75 mls/hr Piperacillin Sod/Tazobactam (Sod 3.375 gm/ Dextrose) 100 mls @ 200 mls/hr IVPB Q8H-IV [facility] PRN Reason: Protocol Last Admin: 05/08/17 02:38 Dose: 200 mls/hr Caspofungin 50 mg/ Sodium (Chloride) 250 mls @ 250 mls/hr IV DAILY [facility] Last Admin: 05/07/17 11:05 Dose: 250 mls/hr Levothyroxine Sodium (Synthroid -) 75 mcg GT DAILY@0700 [facility] Last Admin: 05/08/17 06:33 Dose: 75 mcg Lorazepam (Ativan -) 1 mg GT TID [facility] Last Admin: 05/08/17 06:33 Dose: 1 mg Multi-Ingredient Ointment (Zinc Oxide) 1 applic TP TID [facility] Last Admin: 05/08/17 06:33 Dose: 1 applic Pantoprazole Sodium (Protonix Packets For Oral Suspension -) 40 mg GT DAILY [facility] Last Admin: 05/07/17 11:06 Dose: 40 mg Quetiapine Fumarate (Seroquel -) 25 mg GT HS [facility] Last Admin: 05/07/17 21:06 Dose: 25 mg Sodium Chloride (Normal Saline -) 500 ml IV Q20M PRN PRN Reason: MAP<65mm Hg OR SBP <90 Last Admin: 05/03/17 17:59 Dose: 500 ml - Objective Vital Signs: Vital Signs Temperature 98.2 F 05/08/17 06:00 Pulse Rate 107 H 05/08/17 06:00 Respiratory Rate 18 05/08/17 06:00 Blood Pressure 138/75 05/08/17 06:00 O2 Sat by Pulse Oximetry (%) 97 05/07/17 22:40 HENT: Yes: Other (Trach) Neck: Yes: WNL, Supple Cardiovascular: Yes: Regular Rate and Rhythm, S1, S2. No: Murmur Respiratory: Yes: WNL, Regular, CTA Bilaterally, Rhonchi Gastrointestinal: Yes: WNL, Normal Bowel Sounds, Soft. No: Tenderness, Tenderness, Epigastrium Edema: No Labs: CBC, BMP 05/07/17 06:20 05/07/17 06:20 INR, PTT INR 1.07 (0.82-1.09) 05/03/17 15:40 Problem List - Problems (1) Pneumonia Code(s): J18.9 - PNEUMONIA, UNSPECIFIED ORGANISM (2) Lung cancer Code(s): C34.90 - MALIGNANT NEOPLASM OF UNSP PART OF UNSP BRONCHUS OR LUNG (3) Candidemia Code(s): B37.7 - CANDIDAL SEPSIS (4) UTI (urinary tract infection) Code(s): N39.0 - URINARY TRACT INFECTION, SITE NOT SPECIFIED Assessment/Plan Microbiology 05/03/17 18:30 Sputum - Endotracheal Suction W/O Vent Gram Stain - Final 05/03/17 18:30 Sputum - Endotracheal Suction W/O Vent Sputum Culture - Final Acinetobacter Baumannii/Haemol 05/03/17 15:50 Urine - Urine - Catheterized Urine Culture - Final Klebsiella Pneumoniae Pseudomonas Aeruginosa 05/03/17 15:50 Blood - Peripheral Venous Blood Culture - Final Yeast Like Organism 05/03/17 15:40 Blood - Peripheral Venous Blood Culture - Final Yeast Like Organism Laboratory Tests 05/07/17 05/07/17 06:20 06:20 WBC 13.4 H Hgb 9.6 L Hct 29.4 L Plt Count 275 BUN 8 D Creatinine 0.6 Assessment Lung cancer Fungemia on cancidas Pneumonia Urinary tract infection Chronic respiratory failure with trach Cachexia Plan Based on sensitivity change to Unasyn to cover Acinetobacter Ceftazidime to cover urinary gram negs Continue Caspofungin for presumed Natty Opthomology evaluation for ? Natty endopthalmitis Rambo WRIGHT
--- NOTE | 2017-05-08 09:21 | OP ---
DATE OF OPERATION: DATE OF DICTATION: 05/07/2017 PREOPERATIVE DIAGNOSIS: Fungemia with infected chemotherapy port. . POST-PROCEDURE DIAGNOSIS: Fungemia with infected chemotherapy port. . PROCEDURE: Removal of chemotherapy port, right anterior chest wall, and removal of central venous catheter, right internal jugular. ATTENDING SURGEON: Ino Nguyen MD SLIDE MAKER: No one. ANESTHESIA: Local. Local consisted of 1% lidocaine for a total of 25 mL subcutaneously. ESTIMATED BLOOD LOSS: 5 mL. SPECIMEN: Chemotherapy port, which was discarded, two pieces and cuff segment. INDICATIONS: Patient is a 76-year-old female with history of lung cancer status post chemotherapy and radiation, tracheostomy-dependent with a PEG, who presented with hypoxemia. Workup included blood cultures and fungal cultures that showed patient has a fungemia, which is active. She is being treated empirically. Infectious disease noted that a possible nidus for the infection could be the chemotherapy port, and we were requested to remove the port. After assessing the patient and contacting the oncologist, who was currently giving immunotherapy, the risks, benefits, and alternatives were explained to the patient. She signed informed consent, at which point, we proceeded with removal of the chemotherapy port, after all parties were in agreement and informed consent was signed, and the patient had her questions answered to her satisfaction. DESCRIPTION OF PROCEDURE: The patient at the bedside was prepped and draped in standard surgical fashion. She was in supine position with supplemental oxygen. Local anesthetic was administered to the anterior chest wall, an area of approximately 4 x 5 cm of blocking just infraclavicular. The area was palpated. Skin was sterile prepped and draped. A formal time-out was completed. The patient had already been receiving intravenous antibiotics and antifungals. After completing a time-out with the patient positioned and the area was sterilely prepped, draped, and the block was applied. With adequate time for the block to take effect, a small 2-cm incision was made at the previous site of instillation, and the incision was carried down through the full thickness of the skin into subcutaneous tissues. Tenotomy scissors was used to dissect towards the capsule for the chemotherapy port. The chemotherapy port was identified in the capsule in the right anterior chest wall in the infraclavicular space. It was dissected in all aspects, and the sutures that were securing it to the anterior pectoralis fascia were cut. Once cut, they were removed, and the chemotherapy port itself was delivered into the incision. There was minimal blood loss at this time. The segments proceeding to the central venous insertion site was then dissected along its fibrous capsule. Once exposed, the port was removed with gentle traction after the cuff segment was freed from its capsule. With gentle traction, pressure was held on the internal jugular vein to allow for the venotomy to close. Blood loss was again minimal. The site was irrigated with sterile saline irrigation, and then, packed with 0.5-inch Iodoform. The skin was cleaned, sterile dressing was placed, pressure dressing, including 4x4 gauze and tape. Patient tolerated the procedure fully awake with local anesthetic. She was stable throughout the procedure. MD SONDRA Oliver/[id number] MTDD
[2017-05-08] MEDS ORDERED: cefTAZidime PENTAHYDRATE 1 GM/50ML PRE-DOCKED (RESTRICTED TO ID) IVPB SCH (10:00)
--- NOTE | 2017-05-08 10:10 | PN ---
Progress Note, Physician Chief Complaint: UTI, Fungemia History of Present Illness: feeling much better seen by Speech and swallow, PO intake improved PEG feeding only at night -seen by pulmonary and ID -Port removed by surgery -on IV abx and antifungal -Echo reviewed, EF 60% with no LV dysfunction, chronic anemia repeat CXR no change -afebrile Sputum culture: Microbiology 05/04/17 06:00 Cryptococcal Antigen - Preliminary Serum 05/05/17 15:05 Blood Culture - Preliminary Blood - Peripheral Venous NO GROWTH OBTAINED AFTER 48 HOURS, INCUBATION TO CONTINUE FOR 3 DAYS. 05/05/17 15:10 Blood Culture - Preliminary Blood - Peripheral Venous NO GROWTH OBTAINED AFTER 48 HOURS, INCUBATION TO CONTINUE FOR 3 DAYS. 05/03/17 18:30 Gram Stain - Final Sputum - Endotracheal Suction W/O Vent Sputum Culture - Final Acinetobacter Baumannii/Haemol - Current Medication List Current Medications: Active Medications Acetaminophen (Tylenol Oral Solution -) 650 mg GT QID PRN PRN Reason: PAIN Last Admin: 05/07/17 10:08 Dose: 650 mg Albuterol/Ipratropium (Duoneb -) 1 amp NEB Q4H PRN PRN Reason: SHORTNESS OF BREATH Last Admin: 05/07/17 23:15 Dose: 1 amp Amlodipine Besylate (Norvasc -) 5 mg GT DAILY [facility] Last Admin: 05/07/17 11:06 Dose: 5 mg Atorvastatin Calcium (Lipitor -) 20 mg GT HS [facility] Last Admin: 05/07/17 21:06 Dose: 20 mg Escitalopram Oxalate (Lexapro -) 10 mg GT DAILY [facility] Last Admin: 05/07/17 11:06 Dose: 10 mg Heparin Sodium (Porcine) (Heparin -) 5,000 unit SQ BID [facility] Last Admin: 05/07/17 21:06 Dose: 5,000 unit IV Flush (Santos-Cath Flush) 10 ml IVPUSH PRN PRN PRN Reason: FLUSH Potassium Chloride/Dextrose/Sod Cl (D5-1/2ns+20 Meq Kcl -) 20 meq in 1,000 mls @ 75 mls/hr IV ASDIR [facility] Last Admin: 05/07/17 21:48 Dose: 75 mls/hr Caspofungin 50 mg/ Sodium (Chloride) 250 mls @ 250 mls/hr IV DAILY [facility] Last Admin: 05/07/17 11:05 Dose: 250 mls/hr Ampicillin Sodium/Sulbactam (Sodium 1.5 gm/ Sodium Chloride) 100 mls @ 200 mls/ hr IVPB Q8H-IV [facility] Ceftazidime (Fortaz (Restricted To Id) -) 1 gm in 10 mls @ 120 mls/hr IVPUSH Q8H-IV [facility] Levothyroxine Sodium (Synthroid -) 75 mcg GT DAILY@0700 [facility] Last Admin: 05/08/17 06:33 Dose: 75 mcg Lorazepam (Ativan -) 1 mg GT TID [facility] Last Admin: 05/08/17 06:33 Dose: 1 mg Multi-Ingredient Ointment (Zinc Oxide) 1 applic TP TID [facility] Last Admin: 05/08/17 06:33 Dose: 1 applic Pantoprazole Sodium (Protonix Packets For Oral Suspension -) 40 mg GT DAILY [facility] Last Admin: 05/07/17 11:06 Dose: 40 mg Quetiapine Fumarate (Seroquel -) 25 mg GT HS [facility] Last Admin: 05/07/17 21:06 Dose: 25 mg Sodium Chloride (Normal Saline -) 500 ml IV Q20M PRN PRN Reason: MAP<65mm Hg OR SBP <90 Last Admin: 05/03/17 17:59 Dose: 500 ml - Objective Vital Signs: Vital Signs Temperature 98.2 F 05/08/17 06:00 Pulse Rate 107 H 05/08/17 06:00 Respiratory Rate 18 05/08/17 06:00 Blood Pressure 138/75 05/08/17 06:00 O2 Sat by Pulse Oximetry (%) 97 05/07/17 22:40 Constitutional: Yes: Well Nourished, No Distress, Calm Cardiovascular: Yes: Regular Rate and Rhythm Respiratory: Yes: Regular Gastrointestinal: Yes: Normal Bowel Sounds Musculoskeletal: Yes: WNL Extremities: Yes: WNL Edema: No Peripheral Pulses WNL: Yes Neurological: Yes: Alert, Oriented Psychiatric: Yes: Alert, Oriented Labs: CBC, BMP 05/07/17 06:20 05/07/17 06:20 INR, PTT INR 1.07 (0.82-1.09) 05/03/17 15:40 Problem List - Problems (1) Fungemia Assessment/Plan: -IV antifungal -ID on board Code(s): B49 - UNSPECIFIED MYCOSIS (2) History of lung cancer Assessment/Plan: -seen by oncology team -on immunotherapy Code(s): Z85.118 - PERSONAL HISTORY OF MALIGNANT NEOPLASM OF BRONCHUS AND LUNG (3) Pulmonary infiltrate on chest x-ray Assessment/Plan: -repeat CXR no change -pulmonary on board -[facility] tx Code(s): R91.8 - OTHER NONSPECIFIC ABNORMAL FINDING OF LUNG FIELD (4) Acute on chronic respiratory failure with hypoxemia Code(s): J96.21 - ACUTE AND CHRONIC RESPIRATORY FAILURE WITH HYPOXIA (5) Leukocytosis Assessment/Plan: -afebrile -repeat BC negative -Sputum Culture Acetanobactor -on IV abx -repeat labs in AM -ID on board Code(s): D72.829 - ELEVATED WHITE BLOOD CELL COUNT, UNSPECIFIED Assessment/Plan see problem list physical therapy DVT prophylaxis
[2017-05-08] MEDS: HEPARIN NA (PORCINE) 5,000 UNITS/ML 1ML VIAL SQ SCH ×2 (10:22→21:09)
[2017-05-08] MEDS: PANTOPRAZOLE SOD 40 MG SUSPENSION PACKET GT SCH (10:22)
[2017-05-08] MEDS: amLODIPine BESYLATE 5 MG TABLET (FP) GT SCH (10:22)
[2017-05-08] MEDS: ESCITALOPRAM OXALATE 10 MG TABLET (FP) GT SCH (10:22)
[2017-05-08] MEDS: CASPOFUNGIN ACETATE 50 MG in SODIUM CHLORIDE 250 ML IV SCH (10:23)
--- NOTE | 2017-05-08 10:46 | PN ---
Progress Note, Physician Chief Complaint: infected chemoport History of Present Illness: 76 yo female with PMH of lung CA (previous chemotherapy and XRT, currently on imunotherapy (last given 04/29/17)), carotid stenosis, PVD, hypertension, hyperlipidemia, Trach/ PEG (since 03/03) and NIDDM (diet controlled) presenting with increased trach O2 requirement, lethargy, and new left sided lung infiltrates s/p bedside removal chemoport right anterior chest wall. - Current Medication List Current Medications: Active Medications Acetaminophen (Tylenol Oral Solution -) 650 mg GT QID PRN PRN Reason: PAIN Last Admin: 05/07/17 10:08 Dose: 650 mg Albuterol/Ipratropium (Duoneb -) 1 amp NEB Q4H PRN PRN Reason: SHORTNESS OF BREATH Last Admin: 05/07/17 23:15 Dose: 1 amp Amlodipine Besylate (Norvasc -) 5 mg GT DAILY [facility] Last Admin: 05/08/17 10:22 Dose: 5 mg Atorvastatin Calcium (Lipitor -) 20 mg GT HS [facility] Last Admin: 05/07/17 21:06 Dose: 20 mg Escitalopram Oxalate (Lexapro -) 10 mg GT DAILY [facility] Last Admin: 05/08/17 10:22 Dose: 10 mg Heparin Sodium (Porcine) (Heparin -) 5,000 unit SQ BID [facility] Last Admin: 05/08/17 10:22 Dose: 5,000 unit IV Flush (Santos-Cath Flush) 10 ml IVPUSH PRN PRN PRN Reason: FLUSH Potassium Chloride/Dextrose/Sod Cl (D5-1/2ns+20 Meq Kcl -) 20 meq in 1,000 mls @ 75 mls/hr IV ASDIR [facility] Last Admin: 05/07/17 21:48 Dose: 75 mls/hr Caspofungin 50 mg/ Sodium (Chloride) 250 mls @ 250 mls/hr IV DAILY [facility] Last Admin: 05/08/17 10:23 Dose: 250 mls/hr Ampicillin Sodium/Sulbactam (Sodium 1.5 gm/ Sodium Chloride) 100 mls @ 200 mls/ hr IVPB Q8H-IV [facility] Ceftazidime (Fortaz (Restricted To Id) -) 1 gm in 10 mls @ 120 mls/hr IVPUSH Q8H-IV [facility] Levothyroxine Sodium (Synthroid -) 75 mcg GT DAILY@0700 [facility] Last Admin: 05/08/17 06:33 Dose: 75 mcg Lorazepam (Ativan -) 1 mg GT TID [facility] Last Admin: 05/08/17 06:33 Dose: 1 mg Multi-Ingredient Ointment (Zinc Oxide) 1 applic TP TID [facility] Last Admin: 05/08/17 06:33 Dose: 1 applic Pantoprazole Sodium (Protonix Packets For Oral Suspension -) 40 mg GT DAILY [facility] Last Admin: 05/08/17 10:22 Dose: 40 mg Quetiapine Fumarate (Seroquel -) 25 mg GT HS [facility] Last Admin: 05/07/17 21:06 Dose: 25 mg Sodium Chloride (Normal Saline -) 500 ml IV Q20M PRN PRN Reason: MAP<65mm Hg OR SBP <90 Last Admin: 05/03/17 17:59 Dose: 500 ml - Objective Vital Signs: Vital Signs Temperature 98.2 F 05/08/17 06:00 Pulse Rate 107 H 05/08/17 06:00 Respiratory Rate 18 05/08/17 06:00 Blood Pressure 138/75 05/08/17 06:00 O2 Sat by Pulse Oximetry (%) 97 05/07/17 22:40 Vital Signs Period Temp Pulse Resp BP Sys/Her Pulse Ox Last 24 Hr 98.1 F-98.5 F 92-107 18- 122-138/74-76 95-97 Constitutional: Yes: No Distress, Calm, Cachectic Eyes: Yes: Conjunctiva Clear, EOM Intact HENT: Yes: Atraumatic, Normocephalic Neck: Yes: Supple, Trachea Midline Cardiovascular: Yes: Regular Rate and Rhythm Respiratory: Yes: Regular, CTA Bilaterally, Other (right anteriro chest wound) Gastrointestinal: Yes: Normal Bowel Sounds, Soft ...Rectal Exam: Yes: Deferred Genitourinary: No: CVA Tenderness - Left, CVA Tenderness - Right Musculoskeletal: No: Muscle Pain, Muscle Weakness Extremities: No: Cool, Cyanosis Edema: No Peripheral Pulses WNL: Yes Peripheral Pulses: Right Radial: 2+, Right Dorsalis Pedis: 2+ Integumentary: No: Erythema, Jaundice Wound/Incision: Yes: Dressing Dry and Intact, Dressing Removed (Wound Measurement: right anterior chest wall, 0.5cm X 2cm X 2cm Dressin/2" iodoform packing, 4X4 gauze sponge and tape), Unapproximated. No: Draining, Reddened, Bleeding Neurological: Yes: Alert, Oriented Psychiatric: Yes: Alert, Oriented Labs: CBC, BMP 05/07/17 06:20 05/07/17 06:20 INR, PTT INR 1.07 (0.82-1.09) 05/03/17 15:40 Problem List - Problems (1) Fungemia Assessment/Plan: 76yo female MMP including lung cancer and tracheostoy dependence presented with hypoxemia and found to have fungemia (final speciation pending) on empiric antibiotic and antifungal therapy, ID recommended to have the port removed. s/p removal of chemoport Daily dressing change instructions for nurse or VNS Wound Measurement: right anterior chest wall, 0.5cm X 2cm X 2cm Dressin/2" iodoform packing, 4X4 gauze sponge and tape continue antibiotics and antifungal per ID f/u cultures Dr. Cramer is covering this weekend Code(s): B49 - UNSPECIFIED MYCOSIS (2) Candidemia Code(s): B37.7 - CANDIDAL SEPSIS (3) Acute on chronic respiratory failure with hypoxemia Code(s): J96.21 - ACUTE AND CHRONIC RESPIRATORY FAILURE WITH HYPOXIA (4) History of lung cancer Code(s): Z85.118 - PERSONAL HISTORY OF MALIGNANT NEOPLASM OF BRONCHUS AND LUNG (5) Tracheostomy dependence Code(s): Z93.0 - TRACHEOSTOMY STATUS
[2017-05-08] MEDS: ALBUTEROL SO4 2.5/IPRATROPIUM 0.5 INH SOL 3 ML VIAL.NEB. NEB PRN (12:12)
[2017-05-08] MEDS: AMPICILLIN NA/SULBACTAM NA 1.5 GM in SODIUM CHLORIDE 100 ML IVPB SCH ×2 (12:31→18:10)
[2017-05-08] MEDS: PUSH IVPUSH SCH ×2 (12:32→18:10)
[2017-05-08] MEDS: DISP SYRIN IVPUSH SCH ×2 (12:32→18:10)
[2017-05-08] MEDS: CEFTAZIDIME 1 GM IVPUSH SCH ×2 (12:32→18:10)
--- NOTE | 2017-05-08 13:56 | PN ---
Progress Note, Physician History of Present Illness: pulmonary alert,comfortable,-resp distress - Current Medication List Current Medications: Active Medications Acetaminophen (Tylenol Oral Solution -) 650 mg GT QID PRN PRN Reason: PAIN Last Admin: 05/07/17 10:08 Dose: 650 mg Albuterol/Ipratropium (Duoneb -) 1 amp NEB Q4H PRN PRN Reason: SHORTNESS OF BREATH Last Admin: 05/08/17 12:12 Dose: 1 amp Amlodipine Besylate (Norvasc -) 5 mg GT DAILY [facility] Last Admin: 05/08/17 10:22 Dose: 5 mg Atorvastatin Calcium (Lipitor -) 20 mg GT HS [facility] Last Admin: 05/07/17 21:06 Dose: 20 mg Escitalopram Oxalate (Lexapro -) 10 mg GT DAILY [facility] Last Admin: 05/08/17 10:22 Dose: 10 mg Heparin Sodium (Porcine) (Heparin -) 5,000 unit SQ BID [facility] Last Admin: 05/08/17 10:22 Dose: 5,000 unit IV Flush (Santos-Cath Flush) 10 ml IVPUSH PRN PRN PRN Reason: FLUSH Potassium Chloride/Dextrose/Sod Cl (D5-1/2ns+20 Meq Kcl -) 20 meq in 1,000 mls @ 75 mls/hr IV ASDIR [facility] Last Admin: 05/07/17 21:48 Dose: 75 mls/hr Caspofungin 50 mg/ Sodium (Chloride) 250 mls @ 250 mls/hr IV DAILY [facility] Last Admin: 05/08/17 10:23 Dose: 250 mls/hr Ampicillin Sodium/Sulbactam (Sodium 1.5 gm/ Sodium Chloride) 100 mls @ 200 mls/ hr IVPB Q8H-IV [facility] Last Admin: 05/08/17 12:31 Dose: 200 mls/hr Ceftazidime (Fortaz (Restricted To Id) -) 1 gm in 10 mls @ 120 mls/hr IVPUSH Q8H-IV [facility] Last Admin: 05/08/17 12:32 Dose: 120 mls/hr Levothyroxine Sodium (Synthroid -) 75 mcg GT DAILY@0700 [facility] Last Admin: 05/08/17 06:33 Dose: 75 mcg Lorazepam (Ativan -) 1 mg GT TID [facility] Last Admin: 05/08/17 06:33 Dose: 1 mg Multi-Ingredient Ointment (Zinc Oxide) 1 applic TP TID [facility] Last Admin: 05/08/17 06:33 Dose: 1 applic Pantoprazole Sodium (Protonix Packets For Oral Suspension -) 40 mg GT DAILY [facility] Last Admin: 05/08/17 10:22 Dose: 40 mg Quetiapine Fumarate (Seroquel -) 25 mg GT HS [facility] Last Admin: 05/07/17 21:06 Dose: 25 mg Sodium Chloride (Normal Saline -) 500 ml IV Q20M PRN PRN Reason: MAP<65mm Hg OR SBP <90 Last Admin: 05/03/17 17:59 Dose: 500 ml - Objective Vital Signs: Vital Signs Temperature 98.2 F 05/08/17 06:00 Pulse Rate 99 H 05/08/17 12:11 Respiratory Rate 18 05/08/17 06:00 Blood Pressure 138/75 05/08/17 06:00 O2 Sat by Pulse Oximetry (%) 95 05/08/17 12:11 Constitutional: Yes: Calm, Thin Eyes: Yes: WNL HENT: Yes: WNL Neck: Yes: Supple (trach) Cardiovascular: Yes: Regular Rate and Rhythm Respiratory: Yes: Rhonchi (few scattered rhonchi) Gastrointestinal: Yes: Normal Bowel Sounds, Soft Extremities: Yes: WNL Edema: No Labs: CBC, BMP Problem List - Problems (1) Acute on chronic respiratory failure with hypoxemia Code(s): J96.21 - ACUTE AND CHRONIC RESPIRATORY FAILURE WITH HYPOXIA (2) Hypothyroid Code(s): E03.9 - HYPOTHYROIDISM, UNSPECIFIED (3) Lung cancer Code(s): C34.90 - MALIGNANT NEOPLASM OF UNSP PART OF UNSP BRONCHUS OR LUNG (4) Pneumonia Code(s): J18.9 - PNEUMONIA, UNSPECIFIED ORGANISM (5) COPD (chronic obstructive pulmonary disease) Code(s): J44.9 - CHRONIC OBSTRUCTIVE PULMONARY DISEASE, UNSPECIFIED (6) Tracheostomy dependence Code(s): 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 Assessment/Plan IMP ACUTE ON CHRONIC HYPOXEMIC RESPIRATORY FAILURE BILATERAL PNEUMONIA LUNG CA S/P RT/CHEMO CURRENTLY ON IMMUNOTHERAPY COPD O2 DEPENDENT S/P TRACH/PEG PVD CAROTID ARTERY DISEASE NIDDM PLAN O2 ANTIBIOTICS PER ID TRACHEAL SUCTIONING INHALED BRONCHODILATORS CULTURES F/U CHEST X-RAYS DR YOU Problem List - Problems (1) Acute on chronic respiratory failure with hypoxemia Code(s): J96.21 - ACUTE AND CHRONIC RESPIRATORY FAILURE WITH HYPOXIA (2) Hypothyroid Code(s): E03.9 - HYPOTHYROIDISM, UNSPECIFIED (3) Lung cancer Code(s): C34.90 - MALIGNANT NEOPLASM OF UNSP PART OF UNSP BRONCHUS OR LUNG (4) Pneumonia Code(s): J18.9 - PNEUMONIA, UNSPECIFIED ORGANISM (5) COPD (chronic obstructive pulmonary disease) Code(s): J44.9 - CHRONIC OBSTRUCTIVE PULMONARY DISEASE, UNSPECIFIED (6) Tracheostomy dependence Code(s): 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
[2017-05-08] MEDS ORDERED: PT OWN MED DRAWER 7, Y5N ONE ×2 (14:40→17:59)
[2017-05-08] MEDS: ACETAMINOPHEN 650 MG/20.3 ML ORAL SOLUTION (CUPS) GT PRN (15:17)
[2017-05-08] MEDS: ATORVASTATIN CA 20 MG TABLET (FP) GT SCH (21:09)
[2017-05-08] MEDS: D5-1/2NS+20 MEQ KCL - 20 MEQ/1,000 ML INFUS.BAG IV SCH (21:09)
[2017-05-08] MEDS: QUEtiapine FUMARATE 25 MG TABLET (FP) GT SCH (21:30)
[2017-05-09] MEDS: AMPICILLIN NA/SULBACTAM NA 1.5 GM in SODIUM CHLORIDE 100 ML IVPB SCH ×3 (01:55→17:54)
[2017-05-09] MEDS: PUSH IVPUSH SCH ×3 (01:56→17:54)
[2017-05-09] MEDS: DISP SYRIN IVPUSH SCH ×3 (01:56→17:54)
[2017-05-09] MEDS: CEFTAZIDIME 1 GM IVPUSH SCH ×3 (01:56→17:54)
[2017-05-09] MEDS: D5-1/2NS+20 MEQ KCL - 20 MEQ/1,000 ML INFUS.BAG IV SCH (06:00)
[2017-05-09] MEDS: ZINC OXIDE 20% TOPICAL OINTMENT 30 GM TUBE TP SCH ×3 (06:08→21:37)
[2017-05-09] MEDS: LEVOTHYROXINE NA 75 MCG TABLET (FP) GT SCH (06:08)
[2017-05-09] MEDS: LORazepam 1 MG TABLET GT SCH ×3 (06:08→21:21)
[2017-05-09] MEDS ORDERED: PT OWN MED DRAWER 7, Y5N ONE ×3 (09:10→22:59)
[2017-05-09 09:18] LABS: BASO % 0.4 % (0-2.0); HEMOGLOBIN 11.1 GM/dL (10.7-15.3); NEUT % 76.4 % (42.8-82.8); PLATELET COUNT 346 K/MM3 (134-434); WHITE BLOOD COUNT 13.2 K/mm3 (4.0-10.0)
[2017-05-09 09:25] LABS: EOS % 2.1 % (0-4.5); HEMATOCRIT 35.3 % (32.4-45.2); LYMPH % 12.7 % (8-40); MCH 26.9 pg (25.7-33.7); MCHC 31.5 g/dl (32.0-36.0); MEAN CELL VOLUME 85.4 fl (80-96); MEAN PLT VOLUME 7.3 fl (7.5-11.1); MONO % 8.4 % (3.8-10.2); RBC 4.13 M/mm3 (3.60-5.2)
[2017-05-09] MEDS: HEPARIN NA (PORCINE) 5,000 UNITS/ML 1ML VIAL SQ SCH ×2 (09:49→21:20)
[2017-05-09] MEDS: CASPOFUNGIN ACETATE 50 MG in SODIUM CHLORIDE 250 ML IV SCH (09:49)
[2017-05-09] MEDS: PANTOPRAZOLE SOD 40 MG SUSPENSION PACKET GT SCH (09:49)
[2017-05-09] MEDS: amLODIPine BESYLATE 5 MG TABLET (FP) GT SCH (09:49)
[2017-05-09] MEDS: ESCITALOPRAM OXALATE 10 MG TABLET (FP) GT SCH (09:50)
[2017-05-09 10:06] LABS: ALBUMIN 2.6 g/dl (3.4-5.0); ALK PHOS 187 U/L (45-117); ANION GAP 8 (8-16); BILIRUBIN,TOTAL 0.3 mg/dL (0.2-1.0); BLOOD UREA NITROGEN 8 mg/dL (7-18); CALCIUM 8.4 mg/dL (8.5-10.1); CHLORIDE 99 mmol/L (98-107); CO2 30 mmol/L (21-32); CREATININE 0.5 mg/dL (0.55-1.02); GLUCOSE,RANDOM 116 mg/dL (74-106); POTASSIUM 3.6 mmol/L (3.5-5.1); SGOT/AST 30 U/L (15-37); SGPT/ALT 34 U/L (12-78); SODIUM 137 mmol/L (136-145); TOT PROT 6.6 g/dl (6.4-8.2)
--- NOTE | 2017-05-09 10:27 | PN ---
Progress Note (short form) - Note Progress Note: ID Antibiotics as follows: Unasyn Ceftazidime Caspofungin Selected Entries 05/09/17 04:00 Temperature 98.4 F Pulse Rate 100 H Respiratory 20 Rate Blood Pressure 150/85 Microbiology 05/03/17 18:30 Sputum - Endotracheal Suction W/O Vent Gram Stain - Final 05/03/17 18:30 Sputum - Endotracheal Suction W/O Vent Sputum Culture - Final Acinetobacter Baumannii/Haemol 05/03/17 15:50 Urine - Urine - Catheterized Urine Culture - Final Klebsiella Pneumoniae Pseudomonas Aeruginosa 05/03/17 15:50 Blood - Peripheral Venous Blood Culture - Final Yeast Like Organism 05/03/17 15:40 Blood - Peripheral Venous Yeast/Fungus Identification - Final Natty Glabrata 05/03/17 15:40 Blood - Peripheral Venous Blood Culture - Final Yeast Like Organism 05/05/17 15:10 Blood - Peripheral Venous Blood Culture - Preliminary NO GROWTH OBTAINED AFTER 72 HOURS, INCUBATION TO CONTINUE FOR 2 DAYS. 05/05/17 15:05 Blood - Peripheral Venous Blood Culture - Preliminary NO GROWTH OBTAINED AFTER 72 HOURS, INCUBATION TO CONTINUE FOR 2 DAYS. Laboratory Tests 05/09/17 05/09/17 08:45 08:45 WBC 13.2 H Hgb 11.1 D Plt Count 346 D BUN 8 Creatinine 0.5 L Assessment Candidemia port removed Urinary tract infection Pneumonia Resistant Acinetobacter Plan Continue all current medications Rambo WRIGHT Problem List - Problems (1) Pneumonia Code(s): J18.9 - PNEUMONIA, UNSPECIFIED ORGANISM (2) Lung cancer Code(s): C34.90 - MALIGNANT NEOPLASM OF UNSP PART OF UNSP BRONCHUS OR LUNG (3) Candidemia Code(s): B37.7 - CANDIDAL SEPSIS (4) UTI (urinary tract infection) Code(s): N39.0 - URINARY TRACT INFECTION, SITE NOT SPECIFIED
--- NOTE | 2017-05-09 11:52 | PN ---
Progress Note, Physician History of Present Illness: pulmonary alert,feeling better,less congested. - Current Medication List Current Medications: Active Medications Acetaminophen (Tylenol Oral Solution -) 650 mg GT QID PRN PRN Reason: PAIN Last Admin: 05/08/17 15:17 Dose: 650 mg Albuterol/Ipratropium (Duoneb -) 1 amp NEB Q4H PRN PRN Reason: SHORTNESS OF BREATH Last Admin: 05/08/17 12:12 Dose: 1 amp Amlodipine Besylate (Norvasc -) 5 mg GT DAILY [facility] Last Admin: 05/09/17 09:49 Dose: 5 mg Atorvastatin Calcium (Lipitor -) 20 mg GT HS [facility] Last Admin: 05/08/17 21:09 Dose: 20 mg Escitalopram Oxalate (Lexapro -) 10 mg GT DAILY [facility] Last Admin: 05/09/17 09:50 Dose: 10 mg Heparin Sodium (Porcine) (Heparin -) 5,000 unit SQ BID [facility] Last Admin: 05/09/17 09:49 Dose: 5,000 unit IV Flush (Santos-Cath Flush) 10 ml IVPUSH PRN PRN PRN Reason: FLUSH Potassium Chloride/Dextrose/Sod Cl (D5-1/2ns+20 Meq Kcl -) 20 meq in 1,000 mls @ 75 mls/hr IV ASDIR [facility] Last Admin: 05/09/17 06:00 Dose: 75 mls/hr Caspofungin 50 mg/ Sodium (Chloride) 250 mls @ 250 mls/hr IV DAILY [facility] Last Admin: 05/09/17 09:49 Dose: 250 mls/hr Ampicillin Sodium/Sulbactam (Sodium 1.5 gm/ Sodium Chloride) 100 mls @ 200 mls/ hr IVPB Q8H-IV [facility] Last Admin: 05/09/17 09:49 Dose: 200 mls/hr Ceftazidime (Fortaz (Restricted To Id) -) 1 gm in 10 mls @ 120 mls/hr IVPUSH Q8H-IV [facility] Last Admin: 05/09/17 09:50 Dose: 120 mls/hr Levothyroxine Sodium (Synthroid -) 75 mcg GT DAILY@0700 [facility] Last Admin: 05/09/17 06:08 Dose: 75 mcg Lorazepam (Ativan -) 1 mg GT TID [facility] Last Admin: 05/09/17 06:08 Dose: 1 mg Multi-Ingredient Ointment (Zinc Oxide) 1 applic TP TID [facility] Last Admin: 05/09/17 06:08 Dose: 1 applic Pantoprazole Sodium (Protonix Packets For Oral Suspension -) 40 mg GT DAILY [facility] Last Admin: 05/09/17 09:49 Dose: 40 mg Quetiapine Fumarate (Seroquel -) 25 mg GT HS [facility] Last Admin: 05/08/17 21:30 Dose: 25 mg Sodium Chloride (Normal Saline -) 500 ml IV Q20M PRN PRN Reason: MAP<65mm Hg OR SBP <90 Last Admin: 05/03/17 17:59 Dose: 500 ml - Objective Vital Signs: Vital Signs Temperature 98.4 F 05/09/17 04:00 Pulse Rate 100 H 05/09/17 04:00 Respiratory Rate 20 05/09/17 04:00 Blood Pressure 150/85 05/09/17 04:00 O2 Sat by Pulse Oximetry (%) 95 05/08/17 21:00 Constitutional: Yes: Calm, Thin Eyes: Yes: WNL HENT: Yes: WNL Neck: Yes: Supple (trach) Cardiovascular: Yes: Pulse Irregular, S1, S2 Respiratory: Yes: Rales (coarse crackles bilaterally) Gastrointestinal: Yes: Normal Bowel Sounds, Soft Extremities: Yes: WNL Edema: No Labs: CBC, BMP 05/09/17 08:45 05/09/17 08:45 INR, PTT INR 1.07 (0.82-1.09) 05/03/17 15:40 Problem List - Problems (1) Acute on chronic respiratory failure with hypoxemia Code(s): J96.21 - ACUTE AND CHRONIC RESPIRATORY FAILURE WITH HYPOXIA (2) Hypothyroid Code(s): E03.9 - HYPOTHYROIDISM, UNSPECIFIED (3) Lung cancer Code(s): C34.90 - MALIGNANT NEOPLASM OF UNSP PART OF UNSP BRONCHUS OR LUNG (4) Pneumonia Code(s): J18.9 - PNEUMONIA, UNSPECIFIED ORGANISM (5) COPD (chronic obstructive pulmonary disease) Code(s): J44.9 - CHRONIC OBSTRUCTIVE PULMONARY DISEASE, UNSPECIFIED (6) Tracheostomy dependence Code(s): 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 Assessment/Plan IMP ACUTE ON CHRONIC HYPOXEMIC RESPIRATORY FAILURE BILATERAL PNEUMONIA LUNG CA S/P RT/CHEMO CURRENTLY ON IMMUNOTHERAPY COPD O2 DEPENDENT S/P TRACH/PEG PVD CAROTID ARTERY DISEASE NIDDM PLAN O2 ANTIBIOTICS PER ID TRACHEAL SUCTIONING INHALED BRONCHODILATORS F/U CHEST X-RAYS DR OYU Problem List - Problems (1) Acute on chronic respiratory failure with hypoxemia Code(s): J96.21 - ACUTE AND CHRONIC RESPIRATORY FAILURE WITH HYPOXIA (2) Hypothyroid Code(s): E03.9 - HYPOTHYROIDISM, UNSPECIFIED (3) Lung cancer Code(s): C34.90 - MALIGNANT NEOPLASM OF UNSP PART OF UNSP BRONCHUS OR LUNG (4) Pneumonia Code(s): J18.9 - PNEUMONIA, UNSPECIFIED ORGANISM (5) COPD (chronic obstructive pulmonary disease) Code(s): J44.9 - CHRONIC OBSTRUCTIVE PULMONARY DISEASE, UNSPECIFIED (6) Tracheostomy dependence Code(s): 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
--- NOTE | 2017-05-09 15:01 | PN ---
Progress Note, Physician Chief Complaint: AWAKE NAD THIS IS MY FIRST ENCOUNTER WITH HIS PATIENT CHART AND RECORDS REVIEWED - Current Medication List Current Medications: Active Medications Acetaminophen (Tylenol Oral Solution -) 650 mg GT QID PRN PRN Reason: PAIN Last Admin: 05/08/17 15:17 Dose: 650 mg Albuterol/Ipratropium (Duoneb -) 1 amp NEB Q4H PRN PRN Reason: SHORTNESS OF BREATH Last Admin: 05/08/17 12:12 Dose: 1 amp Amlodipine Besylate (Norvasc -) 5 mg GT DAILY [facility] Last Admin: 05/09/17 09:49 Dose: 5 mg Atorvastatin Calcium (Lipitor -) 20 mg GT HS [facility] Last Admin: 05/08/17 21:09 Dose: 20 mg Escitalopram Oxalate (Lexapro -) 10 mg GT DAILY [facility] Last Admin: 05/09/17 09:50 Dose: 10 mg Heparin Sodium (Porcine) (Heparin -) 5,000 unit SQ BID [facility] Last Admin: 05/09/17 09:49 Dose: 5,000 unit IV Flush (Santos-Cath Flush) 10 ml IVPUSH PRN PRN PRN Reason: FLUSH Potassium Chloride/Dextrose/Sod Cl (D5-1/2ns+20 Meq Kcl -) 20 meq in 1,000 mls @ 75 mls/hr IV ASDIR [facility] Last Admin: 05/09/17 06:00 Dose: 75 mls/hr Caspofungin 50 mg/ Sodium (Chloride) 250 mls @ 250 mls/hr IV DAILY [facility] Last Admin: 05/09/17 09:49 Dose: 250 mls/hr Ampicillin Sodium/Sulbactam (Sodium 1.5 gm/ Sodium Chloride) 100 mls @ 200 mls/ hr IVPB Q8H-IV [facility] Last Admin: 05/09/17 09:49 Dose: 200 mls/hr Ceftazidime (Fortaz (Restricted To Id) -) 1 gm in 10 mls @ 120 mls/hr IVPUSH Q8H-IV [facility] Last Admin: 05/09/17 09:50 Dose: 120 mls/hr Levothyroxine Sodium (Synthroid -) 75 mcg GT DAILY@0700 [facility] Last Admin: 05/09/17 06:08 Dose: 75 mcg Lorazepam (Ativan -) 1 mg GT TID [facility] Last Admin: 05/09/17 13:30 Dose: 1 mg Multi-Ingredient Ointment (Zinc Oxide) 1 applic TP TID [facility] Last Admin: 05/09/17 13:30 Dose: 1 applic Pantoprazole Sodium (Protonix Packets For Oral Suspension -) 40 mg GT DAILY [facility] Last Admin: 05/09/17 09:49 Dose: 40 mg Quetiapine Fumarate (Seroquel -) 25 mg GT HS [facility] Last Admin: 05/08/17 21:30 Dose: 25 mg Sodium Chloride (Normal Saline -) 500 ml IV Q20M PRN PRN Reason: MAP<65mm Hg OR SBP <90 Last Admin: 05/03/17 17:59 Dose: 500 ml - Objective Vital Signs: Vital Signs Temperature 98 F 05/09/17 09:00 Pulse Rate 100 H 05/09/17 12:00 Respiratory Rate 20 05/09/17 09:00 Blood Pressure 152/86 05/09/17 09:00 O2 Sat by Pulse Oximetry (%) 95 05/09/17 12:00 Constitutional: Yes: Mild Distress Eyes: Yes: WNL HENT: Yes: WNL Neck: Yes: WNL Cardiovascular: Yes: WNL Respiratory: Yes: WNL Gastrointestinal: Yes: WNL Genitourinary: Yes: WNL Musculoskeletal: Yes: Muscle Weakness Extremities: Yes: WNL Edema: No Peripheral Pulses WNL: Yes Integumentary: Yes: WNL Wound/Incision: Yes: Dressing Dry and Intact Neurological: Yes: Weakness ...Motor Strength: LLE, RLE Psychiatric: Yes: Other Labs: CBC, BMP 05/09/17 08:45 05/09/17 08:45 INR, PTT INR 1.07 (0.82-1.09) 05/03/17 15:40 Problem List - Problems (1) Acute on chronic respiratory failure with hypoxemia Code(s): J96.21 - ACUTE AND CHRONIC RESPIRATORY FAILURE WITH HYPOXIA (2) COPD (chronic obstructive pulmonary disease) Code(s): J44.9 - CHRONIC OBSTRUCTIVE PULMONARY DISEASE, UNSPECIFIED (3) Candidemia Code(s): B37.7 - CANDIDAL SEPSIS (4) Fungemia Code(s): B49 - UNSPECIFIED MYCOSIS (5) History of lung cancer Code(s): Z85.118 - PERSONAL HISTORY OF MALIGNANT NEOPLASM OF BRONCHUS AND LUNG Assessment/Plan IV ABX/ANTIFUNGAL DVT PROPHYLAXIS CONTINUE ID F/U WOUND CARE STOP IVF
[2017-05-09] MEDS: ALBUTEROL SO4 2.5/IPRATROPIUM 0.5 INH SOL 3 ML VIAL.NEB. NEB PRN (18:10)
[2017-05-09] MEDS: ATORVASTATIN CA 20 MG TABLET (FP) GT SCH (21:21)
[2017-05-09] MEDS: QUEtiapine FUMARATE 25 MG TABLET (FP) GT SCH (21:21)
[2017-05-10] MEDS: CEFTAZIDIME 1 GM IVPUSH SCH ×3 (01:13→19:02)
[2017-05-10] MEDS: DISP SYRIN IVPUSH SCH ×3 (01:13→19:02)
[2017-05-10] MEDS: PUSH IVPUSH SCH ×3 (01:13→19:02)
[2017-05-10] MEDS: AMPICILLIN NA/SULBACTAM NA 1.5 GM in SODIUM CHLORIDE 100 ML IVPB SCH ×3 (01:20→19:03)
[2017-05-10] MEDS: ALBUTEROL SO4 2.5/IPRATROPIUM 0.5 INH SOL 3 ML VIAL.NEB. NEB PRN (04:25)
[2017-05-10] MEDS: ZINC OXIDE 20% TOPICAL OINTMENT 30 GM TUBE TP SCH ×3 (06:12→21:28)
[2017-05-10] MEDS: LEVOTHYROXINE NA 75 MCG TABLET (FP) GT SCH (06:12)
[2017-05-10] MEDS: LORazepam 1 MG TABLET GT SCH ×3 (06:12→21:28)
--- NOTE | 2017-05-10 10:12 | PN ---
Progress Note, Physician Chief Complaint: Quite comfortable today Sam Parsons Ceftazidime - Current Medication List Current Medications: Active Medications Acetaminophen (Tylenol Oral Solution -) 650 mg GT QID PRN PRN Reason: PAIN Last Admin: 05/08/17 15:17 Dose: 650 mg Albuterol/Ipratropium (Duoneb -) 1 amp NEB Q4H PRN PRN Reason: SHORTNESS OF BREATH Last Admin: 05/10/17 04:25 Dose: 1 amp Amlodipine Besylate (Norvasc -) 5 mg GT DAILY [facility] Last Admin: 05/09/17 09:49 Dose: 5 mg Atorvastatin Calcium (Lipitor -) 20 mg GT HS [facility] Last Admin: 05/09/17 21:21 Dose: 20 mg Escitalopram Oxalate (Lexapro -) 10 mg GT DAILY [facility] Last Admin: 05/09/17 09:50 Dose: 10 mg Heparin Sodium (Porcine) (Heparin -) 5,000 unit SQ BID [facility] Last Admin: 05/09/17 21:20 Dose: 5,000 unit IV Flush (Santos-Cath Flush) 10 ml IVPUSH PRN PRN PRN Reason: FLUSH Caspofungin 50 mg/ Sodium (Chloride) 250 mls @ 250 mls/hr IV DAILY [facility] Last Admin: 05/09/17 09:49 Dose: 250 mls/hr Ampicillin Sodium/Sulbactam (Sodium 1.5 gm/ Sodium Chloride) 100 mls @ 200 mls/ hr IVPB Q8H-IV [facility] Last Admin: 05/10/17 01:20 Dose: 200 mls/hr Ceftazidime (Fortaz (Restricted To Id) -) 1 gm in 10 mls @ 120 mls/hr IVPUSH Q8H-IV [facility] Last Admin: 05/10/17 01:13 Dose: 120 mls/hr Levothyroxine Sodium (Synthroid -) 75 mcg GT DAILY@0700 [facility] Last Admin: 05/10/17 06:12 Dose: 75 mcg Lorazepam (Ativan -) 1 mg GT TID [facility] Last Admin: 05/10/17 06:12 Dose: 1 mg Multi-Ingredient Ointment (Zinc Oxide) 1 applic TP TID [facility] Last Admin: 05/10/17 06:12 Dose: 1 applic Pantoprazole Sodium (Protonix Packets For Oral Suspension -) 40 mg GT DAILY [facility] Last Admin: 05/09/17 09:49 Dose: 40 mg Quetiapine Fumarate (Seroquel -) 25 mg GT HS [facility] Last Admin: 05/09/17 21:21 Dose: 25 mg Sodium Chloride (Normal Saline -) 500 ml IV Q20M PRN PRN Reason: MAP<65mm Hg OR SBP <90 Last Admin: 05/03/17 17:59 Dose: 500 ml - Objective Vital Signs: Vital Signs Temperature 97.9 F 05/10/17 06:00 Pulse Rate 108 H 05/10/17 06:00 Respiratory Rate 18 05/10/17 06:00 Blood Pressure 145/78 05/10/17 06:00 O2 Sat by Pulse Oximetry (%) 95 05/09/17 22:00 Neck: Yes: Other (Trach) Cardiovascular: Yes: S1, S2 Respiratory: Yes: WNL, Regular, CTA Bilaterally, Rhonchi Gastrointestinal: Yes: Soft. No: Tenderness Labs: CBC, BMP 05/09/17 08:45 05/09/17 08:45 INR, PTT INR 1.07 (0.82-1.09) 05/03/17 15:40 Problem List - Problems (1) Pneumonia Code(s): J18.9 - PNEUMONIA, UNSPECIFIED ORGANISM (2) Lung cancer Code(s): C34.90 - MALIGNANT NEOPLASM OF UNSP PART OF UNSP BRONCHUS OR LUNG (3) Candidemia Code(s): B37.7 - CANDIDAL SEPSIS (4) UTI (urinary tract infection) Code(s): N39.0 - URINARY TRACT INFECTION, SITE NOT SPECIFIED Assessment/Plan Microbiology 05/03/17 18:30 Sputum - Endotracheal Suction W/O Vent Gram Stain - Final 05/03/17 18:30 Sputum - Endotracheal Suction W/O Vent Sputum Culture - Final Acinetobacter Baumannii/Haemol 05/03/17 15:50 Urine - Urine - Catheterized Urine Culture - Final Klebsiella Pneumoniae Pseudomonas Aeruginosa 05/03/17 15:50 Blood - Peripheral Venous Blood Culture - Final Yeast Like Organism 05/03/17 15:40 Blood - Peripheral Venous Yeast/Fungus Identification - Final Natty Glabrata 05/03/17 15:40 Blood - Peripheral Venous Blood Culture - Final Yeast Like Organism Laboratory Tests 05/09/17 05/09/17 08:45 08:45 WBC 13.2 H Hgb 11.1 D Plt Count 346 D Total Bilirubin 0.3 D AST 30 ALT 34 Assessment Natty Glabrata sepsis Pneumonia Urinary infection Metastatic cancer Port removed Plan To continue current therapy with discharge planning in the days to come but not yet Needs current antibiotics Rambo WRIGHT
[2017-05-10] MEDS ORDERED: PT OWN MED DRAWER 7, Y5N ONE ×2 (10:36→19:01)
[2017-05-10] MEDS: PANTOPRAZOLE SOD 40 MG SUSPENSION PACKET GT SCH (10:48)
[2017-05-10] MEDS: ESCITALOPRAM OXALATE 10 MG TABLET (FP) GT SCH (10:48)
[2017-05-10] MEDS: amLODIPine BESYLATE 5 MG TABLET (FP) GT SCH (10:49)
[2017-05-10] MEDS: HEPARIN NA (PORCINE) 5,000 UNITS/ML 1ML VIAL SQ SCH ×2 (10:49→21:28)
--- NOTE | 2017-05-10 11:12 | PN ---
Progress Note, Physician History of Present Illness: pulmonary alert,on trach collar,comfortable,o2 sat 98% - Current Medication List Current Medications: Active Medications Acetaminophen (Tylenol Oral Solution -) 650 mg GT QID PRN PRN Reason: PAIN Last Admin: 05/08/17 15:17 Dose: 650 mg Albuterol/Ipratropium (Duoneb -) 1 amp NEB Q4H PRN PRN Reason: SHORTNESS OF BREATH Last Admin: 05/10/17 04:25 Dose: 1 amp Amlodipine Besylate (Norvasc -) 5 mg GT DAILY [facility] Last Admin: 05/10/17 10:49 Dose: 5 mg Atorvastatin Calcium (Lipitor -) 20 mg GT HS [facility] Last Admin: 05/09/17 21:21 Dose: 20 mg Escitalopram Oxalate (Lexapro -) 10 mg GT DAILY [facility] Last Admin: 05/10/17 10:48 Dose: 10 mg Heparin Sodium (Porcine) (Heparin -) 5,000 unit SQ BID [facility] Last Admin: 05/10/17 10:49 Dose: 5,000 unit IV Flush (Santos-Cath Flush) 10 ml IVPUSH PRN PRN PRN Reason: FLUSH Caspofungin 50 mg/ Sodium (Chloride) 250 mls @ 250 mls/hr IV DAILY [facility] Last Admin: 05/09/17 09:49 Dose: 250 mls/hr Ampicillin Sodium/Sulbactam (Sodium 1.5 gm/ Sodium Chloride) 100 mls @ 200 mls/ hr IVPB Q8H-IV [facility] Last Admin: 05/10/17 10:51 Dose: 200 mls/hr Ceftazidime (Fortaz (Restricted To Id) -) 1 gm in 10 mls @ 120 mls/hr IVPUSH Q8H-IV [facility] Last Admin: 05/10/17 10:50 Dose: 120 mls/hr Levothyroxine Sodium (Synthroid -) 75 mcg GT DAILY@0700 [facility] Last Admin: 05/10/17 06:12 Dose: 75 mcg Lorazepam (Ativan -) 1 mg GT TID [facility] Last Admin: 05/10/17 06:12 Dose: 1 mg Multi-Ingredient Ointment (Zinc Oxide) 1 applic TP TID [facility] Last Admin: 05/10/17 06:12 Dose: 1 applic Pantoprazole Sodium (Protonix Packets For Oral Suspension -) 40 mg GT DAILY [facility] Last Admin: 05/10/17 10:48 Dose: 40 mg Quetiapine Fumarate (Seroquel -) 25 mg GT HS [facility] Last Admin: 05/09/17 21:21 Dose: 25 mg Sodium Chloride (Normal Saline -) 500 ml IV Q20M PRN PRN Reason: MAP<65mm Hg OR SBP <90 Last Admin: 05/03/17 17:59 Dose: 500 ml - Objective Vital Signs: Vital Signs Temperature 97.9 F 05/10/17 06:00 Pulse Rate 106 H 05/10/17 10:44 Respiratory Rate 20 05/10/17 10:44 Blood Pressure 140/82 05/10/17 10:44 O2 Sat by Pulse Oximetry (%) 95 05/09/17 22:00 Constitutional: Yes: No Distress, Calm, Thin Eyes: Yes: WNL HENT: Yes: WNL Neck: Yes: Supple (trach) Cardiovascular: Yes: Regular Rate and Rhythm, S1, S2 Respiratory: Yes: Rhonchi (sekou rhonchi l>r) Gastrointestinal: Yes: Normal Bowel Sounds, Soft Extremities: Yes: WNL Edema: No Labs: Problem List - Problems (1) Acute on chronic respiratory failure with hypoxemia Code(s): J96.21 - ACUTE AND CHRONIC RESPIRATORY FAILURE WITH HYPOXIA (2) Hypothyroid Code(s): E03.9 - HYPOTHYROIDISM, UNSPECIFIED (3) Lung cancer Code(s): C34.90 - MALIGNANT NEOPLASM OF UNSP PART OF UNSP BRONCHUS OR LUNG (4) Pneumonia Code(s): J18.9 - PNEUMONIA, UNSPECIFIED ORGANISM (5) COPD (chronic obstructive pulmonary disease) Code(s): J44.9 - CHRONIC OBSTRUCTIVE PULMONARY DISEASE, UNSPECIFIED (6) Tracheostomy dependence Code(s): 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 Assessment/Plan IMP ACUTE ON CHRONIC HYPOXEMIC RESPIRATORY FAILURE CLINICALLY IMPROVING BILATERAL PNEUMONIA LUNG CA S/P RT/CHEMO CURRENTLY ON IMMUNOTHERAPY COPD O2 DEPENDENT S/P TRACH/PEG PVD CAROTID ARTERY DISEASE NIDDM PLAN O2 ANTIBIOTICS PER ID TRACHEAL SUCTIONING INHALED BRONCHODILATORS F/U CHEST X-RAYS DR YOU Problem List - Problems (1) Acute on chronic respiratory failure with hypoxemia Code(s): J96.21 - ACUTE AND CHRONIC RESPIRATORY FAILURE WITH HYPOXIA (2) Hypothyroid Code(s): E03.9 - HYPOTHYROIDISM, UNSPECIFIED (3) Lung cancer Code(s): C34.90 - MALIGNANT NEOPLASM OF UNSP PART OF UNSP BRONCHUS OR LUNG (4) Pneumonia Code(s): J18.9 - PNEUMONIA, UNSPECIFIED ORGANISM (5) COPD (chronic obstructive pulmonary disease) Code(s): J44.9 - CHRONIC OBSTRUCTIVE PULMONARY DISEASE, UNSPECIFIED (6) Tracheostomy dependence Code(s): 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
[2017-05-10] MEDS: CASPOFUNGIN ACETATE 50 MG in SODIUM CHLORIDE 250 ML IV SCH (12:06)
--- NOTE | 2017-05-10 15:18 | PN ---
Progress Note, Physician Chief Complaint: AWAKE NAD TRACH COLLAR - Current Medication List Current Medications: Active Medications Acetaminophen (Tylenol Oral Solution -) 650 mg GT QID PRN PRN Reason: PAIN Last Admin: 05/08/17 15:17 Dose: 650 mg Albuterol/Ipratropium (Duoneb -) 1 amp NEB Q4H PRN PRN Reason: SHORTNESS OF BREATH Last Admin: 05/10/17 04:25 Dose: 1 amp Amlodipine Besylate (Norvasc -) 5 mg GT DAILY [facility] Last Admin: 05/10/17 10:49 Dose: 5 mg Atorvastatin Calcium (Lipitor -) 20 mg GT HS [facility] Last Admin: 05/09/17 21:21 Dose: 20 mg Escitalopram Oxalate (Lexapro -) 10 mg GT DAILY [facility] Last Admin: 05/10/17 10:48 Dose: 10 mg Heparin Sodium (Porcine) (Heparin -) 5,000 unit SQ BID [facility] Last Admin: 05/10/17 10:49 Dose: 5,000 unit IV Flush (Santos-Cath Flush) 10 ml IVPUSH PRN PRN PRN Reason: FLUSH Caspofungin 50 mg/ Sodium (Chloride) 250 mls @ 250 mls/hr IV DAILY [facility] Last Admin: 05/10/17 12:06 Dose: 250 mls/hr Ampicillin Sodium/Sulbactam (Sodium 1.5 gm/ Sodium Chloride) 100 mls @ 200 mls/ hr IVPB Q8H-IV [facility] Last Admin: 05/10/17 10:51 Dose: 200 mls/hr Ceftazidime (Fortaz (Restricted To Id) -) 1 gm in 10 mls @ 120 mls/hr IVPUSH Q8H-IV [facility] Last Admin: 05/10/17 10:50 Dose: 120 mls/hr Levothyroxine Sodium (Synthroid -) 75 mcg GT DAILY@0700 [facility] Last Admin: 05/10/17 06:12 Dose: 75 mcg Lorazepam (Ativan -) 1 mg GT TID [facility] Last Admin: 05/10/17 13:55 Dose: 1 mg Multi-Ingredient Ointment (Zinc Oxide) 1 applic TP TID [facility] Last Admin: 05/10/17 14:03 Dose: 1 applic Pantoprazole Sodium (Protonix Packets For Oral Suspension -) 40 mg GT DAILY [facility] Last Admin: 05/10/17 10:48 Dose: 40 mg Quetiapine Fumarate (Seroquel -) 25 mg GT HS [facility] Last Admin: 05/09/17 21:21 Dose: 25 mg Sodium Chloride (Normal Saline -) 500 ml IV Q20M PRN PRN Reason: MAP<65mm Hg OR SBP <90 Last Admin: 05/03/17 17:59 Dose: 500 ml - Objective Vital Signs: Vital Signs Temperature 98.5 F 05/10/17 14:04 Pulse Rate 100 H 05/10/17 14:04 Respiratory Rate 18 05/10/17 14:04 Blood Pressure 139/76 05/10/17 14:04 O2 Sat by Pulse Oximetry (%) 98 05/10/17 12:10 Constitutional: Yes: No Distress Eyes: Yes: WNL HENT: Yes: WNL Neck: Yes: WNL Cardiovascular: Yes: WNL Respiratory: Yes: Diminished, Other (TRACH COLLAR) Gastrointestinal: Yes: WNL Genitourinary: Yes: WNL Musculoskeletal: Yes: Muscle Weakness Extremities: Yes: WNL Edema: No Peripheral Pulses WNL: Yes Integumentary: Yes: Venous Stasis Changes, Other Wound/Incision: Yes: Dressing Dry and Intact Neurological: Yes: Pre-Existing Deficit ...Motor Strength: LLE, RLE Psychiatric: Yes: Other Labs: CBC, BMP 05/09/17 08:45 05/09/17 08:45 INR, PTT INR 1.07 (0.82-1.09) 05/03/17 15:40 Problem List - Problems (1) Acute on chronic respiratory failure with hypoxemia Code(s): J96.21 - ACUTE AND CHRONIC RESPIRATORY FAILURE WITH HYPOXIA (2) COPD (chronic obstructive pulmonary disease) Code(s): J44.9 - CHRONIC OBSTRUCTIVE PULMONARY DISEASE, UNSPECIFIED (3) Candidemia Code(s): B37.7 - CANDIDAL SEPSIS (4) Fungemia Code(s): B49 - UNSPECIFIED MYCOSIS (5) History of lung cancer Code(s): Z85.118 - PERSONAL HISTORY OF MALIGNANT NEOPLASM OF BRONCHUS AND LUNG Assessment/Plan IV ABX/ANTIFUNGAL DVT PROPHYLAXIS CONTINUE ID F/U WOUND CARE STOP IVF
--- NOTE | 2017-05-10 19:42 | PN ---
Progress Note (short form) - Note Progress Note: s/p chemoport removal 3 days ago for fungemia. cultures grew C. glabrata. pt on antibiotics/antifungals per ID. nurses doing dressing changes to site. nursing reports serosang drainage on packing at change. Vital Signs Period Temp Pulse Resp BP Sys/Her Pulse Ox Last 24 Hr 97.9 F-98.5 F 100-111 18-20 139-156/74-93 94-98 PE: trach collar present with speaking valve, pt with intermittent cough cachectic, no acute distress right chest wall port site dressing checked - iodoform packing in clean-looking wound outer gauze changed and covered with tape no rash, local infection, no edema Microbiology 05/05/17 15:10 Blood - Peripheral Venous Blood Culture - Final NO GROWTH AFTER 5 DAYS INCUBATION 05/05/17 15:05 Blood - Peripheral Venous Blood Culture - Final NO GROWTH AFTER 5 DAYS INCUBATION 05/03/17 15:40 Blood - Peripheral Venous Yeast/Fungus Identification - Final Natty Glabrata 05/04/17 06:00 Serum Cryptococcal Antigen - Final 05/03/17 18:30 Sputum - Endotracheal Suction W/O Vent Gram Stain - Final 05/03/17 18:30 Sputum - Endotracheal Suction W/O Vent Sputum Culture - Final Acinetobacter Baumannii/Haemol 05/03/17 15:50 Blood - Peripheral Venous Blood Culture - Final Yeast Like Organism 05/03/17 15:40 Blood - Peripheral Venous Blood Culture - Final Yeast Like Organism 05/05/17 17:10 Sputum - Endotracheal Suction W/O Vent DOROTEO Preparation - Preliminary 05/05/17 17:10 Sputum - Endotracheal Suction W/O Vent Fungal Culture - Preliminary 05/05/17 19:30 Urine - Urine - Catheterized Legionella Antigen - Final 05/05/17 19:30 Urine - Urine - Catheterized Streptococcus pneumoniae Antigen (M - Final 05/03/17 15:50 Urine - Urine - Catheterized Urine Culture - Final Klebsiella Pneumoniae Pseudomonas Aeruginosa A/P: POD3 removal of right sided chemoport for fungemia site clean continue daily dressing changes/iodoform packing change outer gauze prn if soiled with trach secretions may keep covered with small folded gauze and tegaderm, as long as gauze is changed if it appears saturated minimal pain continue abx/antifungals per ID Problem List - Problems (1) Candidemia Code(s): B37.7 - CANDIDAL SEPSIS (2) History of lung cancer Code(s): Z85.118 - PERSONAL HISTORY OF MALIGNANT NEOPLASM OF BRONCHUS AND LUNG (3) Pneumonia Code(s): J18.9 - PNEUMONIA, UNSPECIFIED ORGANISM Qualifiers: Pneumonia type: due to other aerobic Gram-negative bacteria Laterality: unspecified laterality Lung location: unspecified part of lung Qualified Code(s): J15.6 - Pneumonia due to other Gram-negative bacteria (4) Tracheostomy dependence Code(s): Z93.0 - TRACHEOSTOMY STATUS
[2017-05-10] MEDS: QUEtiapine FUMARATE 25 MG TABLET (FP) GT SCH (21:28)
[2017-05-10] MEDS: ATORVASTATIN CA 20 MG TABLET (FP) GT SCH (21:28)
[2017-05-11] MEDS: CEFTAZIDIME 1 GM IVPUSH SCH ×3 (01:43→17:21)
[2017-05-11] MEDS: PUSH IVPUSH SCH ×3 (01:43→17:21)
[2017-05-11] MEDS: DISP SYRIN IVPUSH SCH ×3 (01:43→17:21)
[2017-05-11] MEDS: AMPICILLIN NA/SULBACTAM NA 1.5 GM in SODIUM CHLORIDE 100 ML IVPB SCH ×3 (01:44→17:21)
[2017-05-11] MEDS: ZINC OXIDE 20% TOPICAL OINTMENT 30 GM TUBE TP SCH ×3 (06:08→21:21)
[2017-05-11] MEDS: LEVOTHYROXINE NA 75 MCG TABLET (FP) GT SCH (06:08)
[2017-05-11] MEDS: LORazepam 1 MG TABLET GT SCH ×3 (06:08→21:13)
[2017-05-11 07:12] LABS: HEMATOCRIT 36.1 % (32.4-45.2); HEMOGLOBIN 11.5 GM/dL (10.7-15.3); MCH 27.3 pg (25.7-33.7); MCHC 31.9 g/dl (32.0-36.0); MEAN CELL VOLUME 85.6 fl (80-96); MEAN PLT VOLUME 6.7 fl (7.5-11.1); PLATELET COUNT 351 K/MM3 (134-434); RBC 4.22 M/mm3 (3.60-5.2); RDW 17.6 % (11.6-15.6); WHITE BLOOD COUNT 11.6 K/mm3 (4.0-10.0)
[2017-05-11 07:43] LABS: ALBUMIN 2.8 g/dl (3.4-5.0); ALK PHOS 173 U/L (45-117); ANION GAP 6 (8-16); BILIRUBIN,TOTAL 0.3 mg/dL (0.2-1.0); BLOOD UREA NITROGEN 12 mg/dL (7-18); CALCIUM 8.8 mg/dL (8.5-10.1); CHLORIDE 99 mmol/L (98-107); CO2 33 mmol/L (21-32); CREATININE 0.8 mg/dL (0.55-1.02); GLUCOSE,RANDOM 159 mg/dL (74-106); POTASSIUM 3.6 mmol/L (3.5-5.1); SGOT/AST 25 U/L (15-37); SGPT/ALT 27 U/L (12-78); SODIUM 138 mmol/L (136-145)
[2017-05-11] MEDS: CASPOFUNGIN ACETATE 50 MG in SODIUM CHLORIDE 250 ML IV SCH (10:56)
[2017-05-11] MEDS: ESCITALOPRAM OXALATE 10 MG TABLET (FP) GT SCH (10:57)
[2017-05-11] MEDS: amLODIPine BESYLATE 5 MG TABLET (FP) GT SCH (10:57)
[2017-05-11] MEDS: PANTOPRAZOLE SOD 40 MG SUSPENSION PACKET GT SCH (10:57)
[2017-05-11] MEDS: HEPARIN NA (PORCINE) 5,000 UNITS/ML 1ML VIAL SQ SCH ×2 (10:57→21:14)
[2017-05-11] MEDS: ALBUTEROL SO4 2.5/IPRATROPIUM 0.5 INH SOL 3 ML VIAL.NEB. NEB PRN (11:00)
--- NOTE | 2017-05-11 12:00 | PN ---
Progress Note, Physician History of Present Illness: PULMONARY ALERT,NAD,LESS CONGESTED - Current Medication List Current Medications: Active Medications Acetaminophen (Tylenol Oral Solution -) 650 mg GT QID PRN PRN Reason: PAIN Last Admin: 05/08/17 15:17 Dose: 650 mg Albuterol/Ipratropium (Duoneb -) 1 amp NEB Q4H PRN PRN Reason: SHORTNESS OF BREATH Last Admin: 05/10/17 04:25 Dose: 1 amp Amlodipine Besylate (Norvasc -) 5 mg GT DAILY [facility] Last Admin: 05/11/17 10:57 Dose: 5 mg Atorvastatin Calcium (Lipitor -) 20 mg GT HS [facility] Last Admin: 05/10/17 21:28 Dose: 20 mg Escitalopram Oxalate (Lexapro -) 10 mg GT DAILY [facility] Last Admin: 05/11/17 10:57 Dose: 10 mg Heparin Sodium (Porcine) (Heparin -) 5,000 unit SQ BID [facility] Last Admin: 05/11/17 10:57 Dose: 5,000 unit IV Flush (Santos-Cath Flush) 10 ml IVPUSH PRN PRN PRN Reason: FLUSH Caspofungin 50 mg/ Sodium (Chloride) 250 mls @ 250 mls/hr IV DAILY [facility] Last Admin: 05/11/17 10:56 Dose: 250 mls/hr Ampicillin Sodium/Sulbactam (Sodium 1.5 gm/ Sodium Chloride) 100 mls @ 200 mls/ hr IVPB Q8H-IV [facility] Last Admin: 05/11/17 10:56 Dose: 200 mls/hr Ceftazidime (Fortaz (Restricted To Id) -) 1 gm in 10 mls @ 120 mls/hr IVPUSH Q8H-IV [facility] Last Admin: 05/11/17 01:43 Dose: 120 mls/hr Levothyroxine Sodium (Synthroid -) 75 mcg GT DAILY@0700 [facility] Last Admin: 05/11/17 06:08 Dose: 75 mcg Lorazepam (Ativan -) 1 mg GT TID [facility] Last Admin: 05/11/17 06:08 Dose: 1 mg Multi-Ingredient Ointment (Zinc Oxide) 1 applic TP TID [facility] Last Admin: 05/11/17 06:08 Dose: 1 applic Pantoprazole Sodium (Protonix Packets For Oral Suspension -) 40 mg GT DAILY [facility] Last Admin: 05/11/17 10:57 Dose: 40 mg Quetiapine Fumarate (Seroquel -) 25 mg GT HS [facility] Last Admin: 05/10/17 21:28 Dose: 25 mg Sodium Chloride (Normal Saline -) 500 ml IV Q20M PRN PRN Reason: MAP<65mm Hg OR SBP <90 Last Admin: 05/03/17 17:59 Dose: 500 ml - Objective Vital Signs: Vital Signs Temperature 97.6 F 05/11/17 06:00 Pulse Rate 96 H 05/11/17 06:00 Respiratory Rate 20 05/11/17 06:00 Blood Pressure 151/71 05/11/17 06:00 O2 Sat by Pulse Oximetry (%) 98 05/10/17 21:00 Constitutional: Yes: Calm, Thin Eyes: Yes: WNL HENT: Yes: WNL Neck: Yes: Supple (TRACH) Cardiovascular: Yes: Regular Rate and Rhythm, S1, S2 Respiratory: Yes: Rales (BILATERAL COARSE RALES WITH RHONCHI) Gastrointestinal: Yes: Normal Bowel Sounds, Soft Extremities: Yes: WNL Edema: No Labs: CBC, BMP 05/11/17 06:25 05/11/17 06:25 INR, PTT INR 1.07 (0.82-1.09) 05/03/17 15:40 Problem List - Problems (1) Acute on chronic respiratory failure with hypoxemia Code(s): J96.21 - ACUTE AND CHRONIC RESPIRATORY FAILURE WITH HYPOXIA (2) Hypothyroid Code(s): E03.9 - HYPOTHYROIDISM, UNSPECIFIED (3) Lung cancer Code(s): C34.90 - MALIGNANT NEOPLASM OF UNSP PART OF UNSP BRONCHUS OR LUNG (4) Pneumonia Code(s): J18.9 - PNEUMONIA, UNSPECIFIED ORGANISM Qualifiers: Pneumonia type: due to other aerobic Gram-negative bacteria Laterality: unspecified laterality Lung location: unspecified part of lung Qualified Code(s): J15.6 - Pneumonia due to other Gram-negative bacteria (5) COPD (chronic obstructive pulmonary disease) Code(s): J44.9 - CHRONIC OBSTRUCTIVE PULMONARY DISEASE, UNSPECIFIED (6) Tracheostomy dependence Code(s): 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 Assessment/Plan IMP ACUTE ON CHRONIC HYPOXEMIC RESPIRATORY FAILURE CLINICALLY IMPROVING BILATERAL PNEUMONIA LUNG CA S/P RT/CHEMO CURRENTLY ON IMMUNOTHERAPY COPD O2 DEPENDENT S/P TRACH/PEG PVD CAROTID ARTERY DISEASE NIDDM PLAN O2 ANTIBIOTICS PER ID TRACHEAL SUCTIONING INHALED BRONCHODILATORS F/U CHEST X-RAYS DR YOU Problem List - Problems (1) Acute on chronic respiratory failure with hypoxemia Code(s): J96.21 - ACUTE AND CHRONIC RESPIRATORY FAILURE WITH HYPOXIA (2) Hypothyroid Code(s): E03.9 - HYPOTHYROIDISM, UNSPECIFIED (3) Lung cancer Code(s): C34.90 - MALIGNANT NEOPLASM OF UNSP PART OF UNSP BRONCHUS OR LUNG (4) Pneumonia Code(s): J18.9 - PNEUMONIA, UNSPECIFIED ORGANISM (5) COPD (chronic obstructive pulmonary disease) Code(s): J44.9 - CHRONIC OBSTRUCTIVE PULMONARY DISEASE, UNSPECIFIED (6) Tracheostomy dependence Code(s): 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
[2017-05-11] MEDS ORDERED: PT OWN MED DRAWER 7, Y5N ONE (16:37)
--- NOTE | 2017-05-11 18:00 | PN ---
Progress Note, Physician Chief Complaint: AWAKE NAD TRACH COLLAR - Current Medication List Current Medications: Active Medications Acetaminophen (Tylenol Oral Solution -) 650 mg GT QID PRN PRN Reason: PAIN Last Admin: 05/08/17 15:17 Dose: 650 mg Albuterol/Ipratropium (Duoneb -) 1 amp NEB Q4H PRN PRN Reason: SHORTNESS OF BREATH Last Admin: 05/11/17 11:00 Dose: 1 amp Amlodipine Besylate (Norvasc -) 5 mg GT DAILY [facility] Last Admin: 05/11/17 10:57 Dose: 5 mg Atorvastatin Calcium (Lipitor -) 20 mg GT HS [facility] Last Admin: 05/10/17 21:28 Dose: 20 mg Escitalopram Oxalate (Lexapro -) 10 mg GT DAILY [facility] Last Admin: 05/11/17 10:57 Dose: 10 mg Heparin Sodium (Porcine) (Heparin -) 5,000 unit SQ BID [facility] Last Admin: 05/11/17 10:57 Dose: 5,000 unit IV Flush (Santos-Cath Flush) 10 ml IVPUSH PRN PRN PRN Reason: FLUSH Caspofungin 50 mg/ Sodium (Chloride) 250 mls @ 250 mls/hr IV DAILY [facility] Last Admin: 05/11/17 10:56 Dose: 250 mls/hr Ampicillin Sodium/Sulbactam (Sodium 1.5 gm/ Sodium Chloride) 100 mls @ 200 mls/ hr IVPB Q8H-IV [facility] Last Admin: 05/11/17 17:21 Dose: 200 mls/hr Ceftazidime (Fortaz (Restricted To Id) -) 1 gm in 10 mls @ 120 mls/hr IVPUSH Q8H-IV [facility] Last Admin: 05/11/17 17:21 Dose: 120 mls/hr Levothyroxine Sodium (Synthroid -) 75 mcg GT DAILY@0700 [facility] Last Admin: 05/11/17 06:08 Dose: 75 mcg Lorazepam (Ativan -) 1 mg GT TID [facility] Last Admin: 05/11/17 15:13 Dose: 1 mg Multi-Ingredient Ointment (Zinc Oxide) 1 applic TP TID [facility] Last Admin: 05/11/17 15:14 Dose: 1 applic Pantoprazole Sodium (Protonix Packets For Oral Suspension -) 40 mg GT DAILY [facility] Last Admin: 05/11/17 10:57 Dose: 40 mg Quetiapine Fumarate (Seroquel -) 25 mg GT HS [facility] Last Admin: 05/10/17 21:28 Dose: 25 mg Sodium Chloride (Normal Saline -) 500 ml IV Q20M PRN PRN Reason: MAP<65mm Hg OR SBP <90 Last Admin: 05/03/17 17:59 Dose: 500 ml - Objective Vital Signs: Vital Signs Temperature 98.3 F 05/11/17 15:06 Pulse Rate 115 H 05/11/17 15:06 Respiratory Rate 20 05/11/17 15:06 Blood Pressure 148/85 05/11/17 15:06 O2 Sat by Pulse Oximetry (%) 96 05/11/17 09:00 Constitutional: Yes: No Distress Eyes: Yes: WNL HENT: Yes: WNL Neck: Yes: WNL Cardiovascular: Yes: WNL Respiratory: Yes: Other (TRACH COLLAR) Genitourinary: Yes: WNL Musculoskeletal: Yes: Muscle Weakness Extremities: Yes: WNL Edema: No Peripheral Pulses WNL: Yes Wound/Incision: Yes: Clean/Dry Neurological: Yes: WNL ...Motor Strength: WNL Psychiatric: Yes: WNL Labs: CBC, BMP 05/11/17 06:25 05/11/17 06:25 INR, PTT INR 1.07 (0.82-1.09) 05/03/17 15:40 Problem List - Problems (1) Acute on chronic respiratory failure with hypoxemia Code(s): J96.21 - ACUTE AND CHRONIC RESPIRATORY FAILURE WITH HYPOXIA (2) COPD (chronic obstructive pulmonary disease) Code(s): J44.9 - CHRONIC OBSTRUCTIVE PULMONARY DISEASE, UNSPECIFIED (3) Candidemia Code(s): B37.7 - CANDIDAL SEPSIS (4) Fungemia Code(s): B49 - UNSPECIFIED MYCOSIS (5) History of lung cancer Code(s): Z85.118 - PERSONAL HISTORY OF MALIGNANT NEOPLASM OF BRONCHUS AND LUNG Assessment/Plan IV ABX/ANTIFUNGAL DVT PROPHYLAXIS CONTINUE ID F/U WOUND CARE STOP IVF
[2017-05-11] MEDS: ATORVASTATIN CA 20 MG TABLET (FP) GT SCH (21:14)
[2017-05-11] MEDS: QUEtiapine FUMARATE 25 MG TABLET (FP) GT SCH (21:15)
[2017-05-12] MEDS ORDERED: PT OWN MED DRAWER 7, Y5N ONE ×3 (01:27→18:21)
[2017-05-12] MEDS: CEFTAZIDIME 1 GM IVPUSH SCH ×3 (01:43→19:03)
[2017-05-12] MEDS: PUSH IVPUSH SCH ×3 (01:43→19:03)
[2017-05-12] MEDS: DISP SYRIN IVPUSH SCH ×3 (01:43→19:03)
[2017-05-12] MEDS: AMPICILLIN NA/SULBACTAM NA 1.5 GM in SODIUM CHLORIDE 100 ML IVPB SCH ×3 (01:45→19:05)
[2017-05-12] MEDS: LEVOTHYROXINE NA 75 MCG TABLET (FP) GT SCH (06:40)
[2017-05-12] MEDS: LORazepam 1 MG TABLET GT SCH ×3 (06:40→22:08)
[2017-05-12] MEDS: ZINC OXIDE 20% TOPICAL OINTMENT 30 GM TUBE TP SCH ×3 (06:46→22:20)
[2017-05-12] MEDS: ALBUTEROL SO4 2.5/IPRATROPIUM 0.5 INH SOL 3 ML VIAL.NEB. NEB PRN ×2 (09:30→21:37)
--- NOTE | 2017-05-12 09:34 | PN ---
Progress Note, Physician Chief Complaint: infected chemoport History of Present Illness: 76 yo female with PMH of lung CA (previous chemotherapy and XRT, currently on imunotherapy (last given 04/29/17)), carotid stenosis, PVD, hypertension, hyperlipidemia, Trach/ PEG (since 03/03) and NIDDM (diet controlled) presenting with increased trach O2 requirement, lethargy, and new left sided lung infiltrates s/p bedside removal chemoport right anterior chest wall. - Current Medication List Current Medications: Active Medications Acetaminophen (Tylenol Oral Solution -) 650 mg GT QID PRN PRN Reason: PAIN Last Admin: 05/08/17 15:17 Dose: 650 mg Albuterol/Ipratropium (Duoneb -) 1 amp NEB Q4H PRN PRN Reason: SHORTNESS OF BREATH Last Admin: 05/11/17 11:00 Dose: 1 amp Amlodipine Besylate (Norvasc -) 5 mg GT DAILY [facility] Last Admin: 05/11/17 10:57 Dose: 5 mg Atorvastatin Calcium (Lipitor -) 20 mg GT HS [facility] Last Admin: 05/11/17 21:14 Dose: 20 mg Escitalopram Oxalate (Lexapro -) 10 mg GT DAILY [facility] Last Admin: 05/11/17 10:57 Dose: 10 mg Heparin Sodium (Porcine) (Heparin -) 5,000 unit SQ BID [facility] Last Admin: 05/11/17 21:14 Dose: 5,000 unit IV Flush (Santos-Cath Flush) 10 ml IVPUSH PRN PRN PRN Reason: FLUSH Caspofungin 50 mg/ Sodium (Chloride) 250 mls @ 250 mls/hr IV DAILY [facility] Last Admin: 05/11/17 10:56 Dose: 250 mls/hr Ampicillin Sodium/Sulbactam (Sodium 1.5 gm/ Sodium Chloride) 100 mls @ 200 mls/ hr IVPB Q8H-IV [facility] Last Admin: 05/12/17 01:45 Dose: 200 mls/hr Ceftazidime (Fortaz (Restricted To Id) -) 1 gm in 10 mls @ 120 mls/hr IVPUSH Q8H-IV [facility] Last Admin: 05/12/17 01:43 Dose: 120 mls/hr Levothyroxine Sodium (Synthroid -) 75 mcg GT DAILY@0700 [facility] Last Admin: 05/12/17 06:40 Dose: 75 mcg Lorazepam (Ativan -) 1 mg GT TID [facility] Last Admin: 05/12/17 06:40 Dose: 1 mg Multi-Ingredient Ointment (Zinc Oxide) 1 applic TP TID [facility] Last Admin: 05/12/17 06:46 Dose: 1 applic Pantoprazole Sodium (Protonix Packets For Oral Suspension -) 40 mg GT DAILY [facility] Last Admin: 05/11/17 10:57 Dose: 40 mg Quetiapine Fumarate (Seroquel -) 25 mg GT HS [facility] Last Admin: 05/11/17 21:15 Dose: 25 mg Sodium Chloride (Normal Saline -) 500 ml IV Q20M PRN PRN Reason: MAP<65mm Hg OR SBP <90 Last Admin: 05/03/17 17:59 Dose: 500 ml - Objective Vital Signs: Vital Signs Temperature 98.2 F 05/12/17 05:29 Pulse Rate 99 H 05/12/17 05:29 Respiratory Rate 20 05/12/17 05:29 Blood Pressure 148/87 05/12/17 05:29 O2 Sat by Pulse Oximetry (%) 96 05/11/17 21:00 Constitutional: Yes: Well Nourished, No Distress, Calm Eyes: Yes: Conjunctiva Clear, EOM Intact HENT: Yes: Atraumatic, Normocephalic Neck: Yes: Supple, Trachea Midline Cardiovascular: Yes: Regular Rate and Rhythm, S1, S2 Respiratory: Yes: Regular, CTA Bilaterally, Diminished (left lung field posteriorly), Other (right upper chest wound in clean and granulating) Gastrointestinal: Yes: Normal Bowel Sounds, Soft Genitourinary: No: CVA Tenderness - Left, CVA Tenderness - Right Extremities: No: Cool, Cyanosis Wound/Incision: Yes: Clean/Dry, Unapproximated. No: Draining, Reddened, Bleeding Neurological: Yes: Alert, Oriented Psychiatric: Yes: Alert, Oriented Labs: CBC, BMP 05/11/17 06:25 05/11/17 06:25 INR, PTT INR 1.07 (0.82-1.09) 05/03/17 15:40 Problem List - Problems (1) Fungemia Assessment/Plan: 76yo female MMP including lung cancer and tracheostoy dependence presented with hypoxemia and found to have fungemia on antibiotic and antifungal therapy, ID recommended to have the port removed. s/p removal of chemoport no more packing is required. Microbiology 05/05/17 15:10 Blood - Peripheral Venous Blood Culture - Final NO GROWTH AFTER 5 DAYS INCUBATION 05/05/17 15:05 Blood - Peripheral Venous Blood Culture - Final NO GROWTH AFTER 5 DAYS INCUBATION 05/03/17 15:40 Blood - Peripheral Venous Yeast/Fungus Identification - Final Natty Glabrata 05/04/17 06:00 Serum Cryptococcal Antigen - Final 05/03/17 18:30 Sputum - Endotracheal Suction W/O Vent Gram Stain - Final 05/03/17 18:30 Sputum - Endotracheal Suction W/O Vent Sputum Culture - Final Acinetobacter Baumannii/Haemol 05/03/17 15:50 Blood - Peripheral Venous Blood Culture - Final Yeast Like Organism 05/03/17 15:40 Blood - Peripheral Venous Blood Culture - Final Yeast Like Organism 05/05/17 17:10 Sputum - Endotracheal Suction W/O Vent DOROTEO Preparation - Preliminary 05/05/17 17:10 Sputum - Endotracheal Suction W/O Vent Fungal Culture - Preliminary 05/05/17 19:30 Urine - Urine - Catheterized Legionella Antigen - Final 05/05/17 19:30 Urine - Urine - Catheterized Streptococcus pneumoniae Antigen (M - Final 05/03/17 15:50 Urine - Urine - Catheterized Urine Culture - Final Klebsiella Pneumoniae Pseudomonas Aeruginosa Daily dressing change instructions for nurse or VNS Wound Measurement: right anterior chest wall, 0.5cm X 1.5cm X 1.5cm DressinX4 gauze sponge and tape continue antibiotics and antifungal per ID f/u cultures Code(s): B49 - UNSPECIFIED MYCOSIS (2) Candidemia Code(s): B37.7 - CANDIDAL SEPSIS (3) Acute on chronic respiratory failure with hypoxemia Code(s): J96.21 - ACUTE AND CHRONIC RESPIRATORY FAILURE WITH HYPOXIA (4) History of lung cancer Code(s): Z85.118 - PERSONAL HISTORY OF MALIGNANT NEOPLASM OF BRONCHUS AND LUNG (5) Tracheostomy dependence Code(s): Z93.0 - TRACHEOSTOMY STATUS
[2017-05-12] MEDS: CASPOFUNGIN ACETATE 50 MG in SODIUM CHLORIDE 250 ML IV SCH (10:00)
[2017-05-12] MEDS: PANTOPRAZOLE SOD 40 MG SUSPENSION PACKET GT SCH (11:10)
[2017-05-12] MEDS: HEPARIN NA (PORCINE) 5,000 UNITS/ML 1ML VIAL SQ SCH ×2 (11:10→22:08)
[2017-05-12] MEDS: amLODIPine BESYLATE 5 MG TABLET (FP) GT SCH (11:10)
[2017-05-12] MEDS: ESCITALOPRAM OXALATE 10 MG TABLET (FP) GT SCH (11:10)
--- NOTE | 2017-05-12 11:31 | PN ---
Progress Note, [facility] REFINER - Note Progress Note: Selected Entries 05/10/17 05/10/17 05/11/17 14:04 18:15 00:08 Lunch 75% Supper 50% Temperature 98.8 F 05/11/17 05/11/17 05/11/17 02:00 06:00 15:06 Lunch Supper Temperature 99.4 F 97.6 F 98.3 F 05/11/17 05/11/17 05/11/17 15:08 18:57 22:00 Lunch 50% Supper Temperature 98.5 F 98.5 F 05/12/17 05/12/17 05:29 11:08 Lunch Supper Temperature 98.2 F 98.2 F Laboratory Tests 05/09/17 05/11/17 08:45 06:25 WBC 13.2 H 11[address], insufficient nutritional intake with need for increased TF and continued PO diet. Tolerating diet without difficulty reported or observed. Refer to RD recommendations. Encourage PO intake/PO supplements as desired.
--- NOTE | 2017-05-12 11:56 | PN ---
Progress Note, Physician Chief Complaint: UTI, Fungemia History of Present Illness: feeling much better seen by Speech and swallow, PO intake improved PEG feeding only at night -seen by pulmonary and ID -Port removed by surgery -on IV abx and antifungal -Echo reviewed, EF 60% with no LV dysfunction, chronic anemia repeat CXR no change -afebrile Sputum culture: Microbiology 05/04/17 06:00 Cryptococcal Antigen - Preliminary Serum 05/05/17 15:05 Blood Culture - Preliminary Blood - Peripheral Venous NO GROWTH OBTAINED AFTER 48 HOURS, INCUBATION TO CONTINUE FOR 3 DAYS. 05/05/17 15:10 Blood Culture - Preliminary Blood - Peripheral Venous NO GROWTH OBTAINED AFTER 48 HOURS, INCUBATION TO CONTINUE FOR 3 DAYS. 05/03/17 18:30 Gram Stain - Final Sputum - Endotracheal Suction W/O Vent Sputum Culture - Final Acinetobacter Baumannii/Haemol - Current Medication List Current Medications: Active Medications Acetaminophen (Tylenol Oral Solution -) 650 mg GT QID PRN PRN Reason: PAIN Last Admin: 05/08/17 15:17 Dose: 650 mg Albuterol/Ipratropium (Duoneb -) 1 amp NEB Q4H PRN PRN Reason: SHORTNESS OF BREATH Last Admin: 05/12/17 09:30 Dose: 1 amp Amlodipine Besylate (Norvasc -) 5 mg GT DAILY [facility] Last Admin: 05/12/17 11:10 Dose: 5 mg Atorvastatin Calcium (Lipitor -) 20 mg GT HS [facility] Last Admin: 05/11/17 21:14 Dose: 20 mg Escitalopram Oxalate (Lexapro -) 10 mg GT DAILY [facility] Last Admin: 05/12/17 11:10 Dose: 10 mg Heparin Sodium (Porcine) (Heparin -) 5,000 unit SQ BID [facility] Last Admin: 05/12/17 11:10 Dose: 5,000 unit IV Flush (Santos-Cath Flush) 10 ml IVPUSH PRN PRN PRN Reason: FLUSH Caspofungin 50 mg/ Sodium (Chloride) 250 mls @ 250 mls/hr IV DAILY [facility] Last Admin: 05/11/17 10:56 Dose: 250 mls/hr Ampicillin Sodium/Sulbactam (Sodium 1.5 gm/ Sodium Chloride) 100 mls @ 200 mls/ hr IVPB Q8H-IV [facility] Last Admin: 05/12/17 11:11 Dose: 200 mls/hr Ceftazidime (Fortaz (Restricted To Id) -) 1 gm in 10 mls @ 120 mls/hr IVPUSH Q8H-IV [facility] Last Admin: 05/12/17 11:10 Dose: 120 mls/hr Levothyroxine Sodium (Synthroid -) 75 mcg GT DAILY@0700 [facility] Last Admin: 05/12/17 06:40 Dose: 75 mcg Lorazepam (Ativan -) 1 mg GT TID [facility] Last Admin: 05/12/17 06:40 Dose: 1 mg Multi-Ingredient Ointment (Zinc Oxide) 1 applic TP TID [facility] Last Admin: 05/12/17 06:46 Dose: 1 applic Pantoprazole Sodium (Protonix Packets For Oral Suspension -) 40 mg GT DAILY [facility] Last Admin: 05/12/17 11:10 Dose: 40 mg Quetiapine Fumarate (Seroquel -) 25 mg GT HS [facility] Last Admin: 05/11/17 21:15 Dose: 25 mg Sodium Chloride (Normal Saline -) 500 ml IV Q20M PRN PRN Reason: MAP<65mm Hg OR SBP <90 Last Admin: 05/03/17 17:59 Dose: 500 ml - Objective Vital Signs: Vital Signs Temperature 98.2 F 05/12/17 11:08 Pulse Rate 111 H 05/12/17 11:08 Respiratory Rate 20 05/12/17 11:08 Blood Pressure 148/85 05/12/17 11:08 O2 Sat by Pulse Oximetry (%) 96 05/11/17 21:00 Constitutional: Yes: Well Nourished, No Distress, Calm Cardiovascular: Yes: Regular Rate and Rhythm Respiratory: Yes: Regular Musculoskeletal: Yes: WNL Extremities: Yes: WNL Edema: No Peripheral Pulses WNL: Yes Neurological: Yes: Alert, Oriented Psychiatric: Yes: Alert, Oriented Labs: CBC, BMP 05/11/17 06:25 05/11/17 06:25 INR, PTT INR 1.07 (0.82-1.09) 05/03/17 15:40 Problem List - Problems (1) Fungemia Assessment/Plan: -IV antifungal -ID on board Code(s): B49 - UNSPECIFIED MYCOSIS (2) History of lung cancer Assessment/Plan: -seen by oncology team -on immunotherapy Code(s): Z85.118 - PERSONAL HISTORY OF MALIGNANT NEOPLASM OF BRONCHUS AND LUNG (3) Pulmonary infiltrate on chest x-ray Assessment/Plan: -repeat CXR no change -pulmonary on board -neb tx Code(s): R91.8 - OTHER NONSPECIFIC ABNORMAL FINDING OF LUNG FIELD (4) Acute on chronic respiratory failure with hypoxemia Code(s): J96.21 - ACUTE AND CHRONIC RESPIRATORY FAILURE WITH HYPOXIA (5) Leukocytosis Assessment/Plan: -afebrile -repeat BC negative -Sputum Culture Acetanobactor -on IV abx -ID on board Code(s): D72.829 - ELEVATED WHITE BLOOD CELL COUNT, UNSPECIFIED Assessment/Plan see problem list physical therapy DVT prophylaxis
--- NOTE | 2017-05-12 12:37 | PN ---
Progress Note (short form) - Note Progress Note: chart reviewed alert eating lunch Vital Signs Period Temp Pulse Resp BP Sys/Her Pulse Ox Last 24 Hr 98.2 F-98.5 F 99-115 20-22 141-155/78-88 96 cor-rrr lungs crackles left base, bilateral rhonchi abd soft,nt +GT ext no edema dressing intact right chest wall CBC, BMP 05/11/17 06:25 05/11/17 06:25 Microbiology 05/05/17 15:10 Blood - Peripheral Venous Blood Culture - Final NO GROWTH AFTER 5 DAYS INCUBATION 05/05/17 15:05 Blood - Peripheral Venous Blood Culture - Final NO GROWTH AFTER 5 DAYS INCUBATION 05/03/17 15:40 Blood - Peripheral Venous Yeast/Fungus Identification - Final Natty Glabrata 05/04/17 06:00 Serum Cryptococcal Antigen - Final 05/03/17 18:30 Sputum - Endotracheal Suction W/O Vent Gram Stain - Final 05/03/17 18:30 Sputum - Endotracheal Suction W/O Vent Sputum Culture - Final Acinetobacter Baumannii/Haemol 05/03/17 15:50 Blood - Peripheral Venous Blood Culture - Final Yeast Like Organism 05/03/17 15:40 Blood - Peripheral Venous Blood Culture - Final Yeast Like Organism 05/05/17 17:10 Sputum - Endotracheal Suction W/O Vent DOROTEO Preparation - Preliminary 05/05/17 17:10 Sputum - Endotracheal Suction W/O Vent Fungal Culture - Preliminary 05/05/17 19:30 Urine - Urine - Catheterized Legionella Antigen - Final 05/05/17 19:30 Urine - Urine - Catheterized Streptococcus pneumoniae Antigen (M - Final 05/03/17 15:50 Urine - Urine - Catheterized Urine Culture - Final Klebsiella Pneumoniae Pseudomonas Aeruginosa Current Medications Acetaminophen (Tylenol Oral Solution -) 650 mg GT QID PRN PRN Reason: PAIN Last Admin: 05/08/17 15:17 Dose: 650 mg Albuterol/Ipratropium (Duoneb -) 1 amp NEB Q4H PRN PRN Reason: SHORTNESS OF BREATH Last Admin: 05/12/17 09:30 Dose: 1 amp Amlodipine Besylate (Norvasc -) 5 mg GT DAILY [facility] Last Admin: 05/12/17 11:10 Dose: 5 mg Atorvastatin Calcium (Lipitor -) 20 mg GT HS [facility] Last Admin: 05/11/17 21:14 Dose: 20 mg Escitalopram Oxalate (Lexapro -) 10 mg GT DAILY [facility] Last Admin: 05/12/17 11:10 Dose: 10 mg Heparin Sodium (Porcine) (Heparin -) 5,000 unit SQ BID [facility] Last Admin: 05/12/17 11:10 Dose: 5,000 unit IV Flush (Santos-Cath Flush) 10 ml IVPUSH PRN PRN PRN Reason: FLUSH Caspofungin 50 mg/ Sodium (Chloride) 250 mls @ 250 mls/hr IV DAILY [facility] Last Admin: 05/11/17 10:56 Dose: 250 mls/hr Ampicillin Sodium/Sulbactam (Sodium 1.5 gm/ Sodium Chloride) 100 mls @ 200 mls/ hr IVPB Q8H-IV [facility] Last Admin: 05/12/17 11:11 Dose: 200 mls/hr Ceftazidime (Fortaz (Restricted To Id) -) 1 gm in 10 mls @ 120 mls/hr IVPUSH Q8H-IV [facility] Last Admin: 05/12/17 11:10 Dose: 120 mls/hr Levothyroxine Sodium (Synthroid -) 75 mcg GT DAILY@0700 [facility] Last Admin: 05/12/17 06:40 Dose: 75 mcg Lorazepam (Ativan -) 1 mg GT TID [facility] Last Admin: 05/12/17 06:40 Dose: 1 mg Multi-Ingredient Ointment (Zinc Oxide) 1 applic TP TID [facility] Last Admin: 05/12/17 06:46 Dose: 1 applic Pantoprazole Sodium (Protonix Packets For Oral Suspension -) 40 mg GT DAILY [facility] Last Admin: 05/12/17 11:10 Dose: 40 mg Quetiapine Fumarate (Seroquel -) 25 mg GT HS [facility] Last Admin: 05/11/17 21:15 Dose: 25 mg Sodium Chloride (Normal Saline -) 500 ml IV Q20M PRN PRN Reason: MAP<65mm Hg OR SBP <90 Last Admin: 05/03/17 17:59 Dose: 500 ml a/p fungemia- s/p port removal, day #9 cancidas pneumonia-day #4 unasyn/ceftaz uti to continue cancidas/unasyn/ceftaz metastatic lung cancer d/w and patient
--- NOTE | 2017-05-12 13:29 | PN ---
Progress Note, Physician History of Present Illness: PULMONARY ALERT,FEELING BETTER,LESS CONGESTED - Current Medication List Current Medications: Active Medications Acetaminophen (Tylenol Oral Solution -) 650 mg GT QID PRN PRN Reason: PAIN Last Admin: 05/08/17 15:17 Dose: 650 mg Albuterol/Ipratropium (Duoneb -) 1 amp NEB Q4H PRN PRN Reason: SHORTNESS OF BREATH Last Admin: 05/12/17 09:30 Dose: 1 amp Amlodipine Besylate (Norvasc -) 5 mg GT DAILY [facility] Last Admin: 05/12/17 11:10 Dose: 5 mg Atorvastatin Calcium (Lipitor -) 20 mg GT HS [facility] Last Admin: 05/11/17 21:14 Dose: 20 mg Escitalopram Oxalate (Lexapro -) 10 mg GT DAILY [facility] Last Admin: 05/12/17 11:10 Dose: 10 mg Heparin Sodium (Porcine) (Heparin -) 5,000 unit SQ BID [facility] Last Admin: 05/12/17 11:10 Dose: 5,000 unit IV Flush (Santos-Cath Flush) 10 ml IVPUSH PRN PRN PRN Reason: FLUSH Caspofungin 50 mg/ Sodium (Chloride) 250 mls @ 250 mls/hr IV DAILY [facility] Last Admin: 05/12/17 10:00 Dose: 250 mls/hr Ampicillin Sodium/Sulbactam (Sodium 1.5 gm/ Sodium Chloride) 100 mls @ 200 mls/ hr IVPB Q8H-IV [facility] Last Admin: 05/12/17 11:11 Dose: 200 mls/hr Ceftazidime (Fortaz (Restricted To Id) -) 1 gm in 10 mls @ 120 mls/hr IVPUSH Q8H-IV [facility] Last Admin: 05/12/17 11:10 Dose: 120 mls/hr Levothyroxine Sodium (Synthroid -) 75 mcg GT DAILY@0700 [facility] Last Admin: 05/12/17 06:40 Dose: 75 mcg Lorazepam (Ativan -) 1 mg GT TID [facility] Last Admin: 05/12/17 06:40 Dose: 1 mg Multi-Ingredient Ointment (Zinc Oxide) 1 applic TP TID [facility] Last Admin: 05/12/17 06:46 Dose: 1 applic Pantoprazole Sodium (Protonix Packets For Oral Suspension -) 40 mg GT DAILY [facility] Last Admin: 05/12/17 11:10 Dose: 40 mg Quetiapine Fumarate (Seroquel -) 25 mg GT HS [facility] Last Admin: 05/11/17 21:15 Dose: 25 mg Sodium Chloride (Normal Saline -) 500 ml IV Q20M PRN PRN Reason: MAP<65mm Hg OR SBP <90 Last Admin: 05/03/17 17:59 Dose: 500 ml - Objective Vital Signs: Vital Signs Temperature 98.2 F 05/12/17 11:08 Pulse Rate 106 H 05/12/17 12:58 Respiratory Rate 20 05/12/17 11:08 Blood Pressure 148/85 05/12/17 11:08 O2 Sat by Pulse Oximetry (%) 95 05/12/17 12:58 Constitutional: Yes: Calm, Thin Eyes: Yes: WNL HENT: Yes: WNL Neck: Yes: Supple (TRACH) Cardiovascular: Yes: Pulse Irregular, S1, S2 Respiratory: Yes: Rhonchi (ZHANG RHONCHI) Gastrointestinal: Yes: Normal Bowel Sounds, Soft Extremities: Yes: WNL Edema: No Labs: Problem List - Problems (1) Acute on chronic respiratory failure with hypoxemia Code(s): J96.21 - ACUTE AND CHRONIC RESPIRATORY FAILURE WITH HYPOXIA (2) Hypothyroid Code(s): E03.9 - HYPOTHYROIDISM, UNSPECIFIED (3) Lung cancer Code(s): C34.90 - MALIGNANT NEOPLASM OF UNSP PART OF UNSP BRONCHUS OR LUNG (4) Pneumonia Code(s): J18.9 - PNEUMONIA, UNSPECIFIED ORGANISM Qualifiers: Pneumonia type: due to other aerobic Gram-negative bacteria Laterality: unspecified laterality Lung location: unspecified part of lung Qualified Code(s): J15.6 - Pneumonia due to other Gram-negative bacteria (5) COPD (chronic obstructive pulmonary disease) Code(s): J44.9 - CHRONIC OBSTRUCTIVE PULMONARY DISEASE, UNSPECIFIED (6) Tracheostomy dependence Code(s): 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 Assessment/Plan IMP ACUTE ON CHRONIC HYPOXEMIC RESPIRATORY FAILURE CLINICALLY IMPROVING BILATERAL PNEUMONIA LUNG CA S/P RT/CHEMO CURRENTLY ON IMMUNOTHERAPY COPD O2 DEPENDENT S/P TRACH/PEG PVD CAROTID ARTERY DISEASE NIDDM PLAN O2 ANTIBIOTICS PER ID TRACHEAL SUCTIONING INHALED BRONCHODILATORS F/U CHEST X-RAY TODAY DR YOU Problem List - Problems (1) Acute on chronic respiratory failure with hypoxemia Code(s): J96.21 - ACUTE AND CHRONIC RESPIRATORY FAILURE WITH HYPOXIA (2) Hypothyroid Code(s): E03.9 - HYPOTHYROIDISM, UNSPECIFIED (3) Lung cancer Code(s): C34.90 - MALIGNANT NEOPLASM OF UNSP PART OF UNSP BRONCHUS OR LUNG (4) Pneumonia Code(s): J18.9 - PNEUMONIA, UNSPECIFIED ORGANISM (5) COPD (chronic obstructive pulmonary disease) Code(s): J44.9 - CHRONIC OBSTRUCTIVE PULMONARY DISEASE, UNSPECIFIED (6) Tracheostomy dependence Code(s): 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
[2017-05-12] MEDS: QUEtiapine FUMARATE 25 MG TABLET (FP) GT SCH (22:08)
[2017-05-12] MEDS: ATORVASTATIN CA 20 MG TABLET (FP) GT SCH (22:08)
[2017-05-13] MEDS ORDERED: PT OWN MED DRAWER 7, Y5N ONE ×4 (01:59→21:01)
[2017-05-13] MEDS: CEFTAZIDIME 1 GM IVPUSH SCH ×3 (02:08→18:47)
[2017-05-13] MEDS: PUSH IVPUSH SCH ×3 (02:08→18:47)
[2017-05-13] MEDS: AMPICILLIN NA/SULBACTAM NA 1.5 GM in SODIUM CHLORIDE 100 ML IVPB SCH ×3 (02:08→20:28)
[2017-05-13] MEDS: DISP SYRIN IVPUSH SCH ×3 (02:08→18:47)
[2017-05-13] MEDS: ALBUTEROL SO4 2.5/IPRATROPIUM 0.5 INH SOL 3 ML VIAL.NEB. NEB PRN ×2 (06:35→17:52)
[2017-05-13] MEDS: LORazepam 1 MG TABLET GT SCH ×3 (06:43→21:27)
[2017-05-13] MEDS: LEVOTHYROXINE NA 75 MCG TABLET (FP) GT SCH (06:43)
[2017-05-13] MEDS: ZINC OXIDE 20% TOPICAL OINTMENT 30 GM TUBE TP SCH ×3 (06:44→21:35)
[2017-05-13 07:47] LABS: BASO % 0.9 % (0-2.0); EOS % 2.3 % (0-4.5); LYMPH % 15.2 % (8-40); MCH 27.7 pg (25.7-33.7); MCHC 32.5 g/dl (32.0-36.0); MEAN CELL VOLUME 85.2 fl (80-96); MEAN PLT VOLUME 6.8 fl (7.5-11.1); MONO % 7.8 % (3.8-10.2); NEUT % 73.8 % (42.8-82.8); PLATELET COUNT 357 K/MM3 (134-434); RBC 3.98 M/mm3 (3.60-5.2); RDW 17.6 % (11.6-15.6); WHITE BLOOD COUNT 12.3 K/mm3 (4.0-10.0)
[2017-05-13 07:50] LABS: ALBUMIN 2.8 g/dl (3.4-5.0); ANION GAP 8 (8-16); BILIRUBIN,TOTAL 0.3 mg/dL (0.2-1.0); BLOOD UREA NITROGEN 16 mg/dL (7-18); CHLORIDE 98 mmol/L (98-107); CO2 31 mmol/L (21-32); CREATININE 0.7 mg/dL (0.55-1.02); GLUCOSE,RANDOM 125 mg/dL (74-106); POTASSIUM 3.5 mmol/L (3.5-5.1); SGOT/AST 31 U/L (15-37); SGPT/ALT 27 U/L (12-78); SODIUM 137 mmol/L (136-145); TOT PROT 6.7 g/dl (6.4-8.2)
[2017-05-13 07:51] LABS: ALK PHOS 152 U/L (45-117)
--- NOTE | 2017-05-13 10:48 | PN ---
Progress Note, Physician Chief Complaint: UTI History of Present Illness: on trach collar- 95%, NAD IV abx PEG feeding - Current Medication List Current Medications: Active Medications Acetaminophen (Tylenol Oral Solution -) 650 mg GT QID PRN PRN Reason: PAIN Last Admin: 05/08/17 15:17 Dose: 650 mg Albuterol/Ipratropium (Duoneb -) 1 amp NEB Q4H PRN PRN Reason: SHORTNESS OF BREATH Last Admin: 05/13/17 06:35 Dose: 1 amp Amlodipine Besylate (Norvasc -) 5 mg GT DAILY [facility] Last Admin: 05/12/17 11:10 Dose: 5 mg Atorvastatin Calcium (Lipitor -) 20 mg GT HS [facility] Last Admin: 05/12/17 22:08 Dose: 20 mg Escitalopram Oxalate (Lexapro -) 10 mg GT DAILY [facility] Last Admin: 05/12/17 11:10 Dose: 10 mg Heparin Sodium (Porcine) (Heparin -) 5,000 unit SQ BID [facility] Last Admin: 05/12/17 22:08 Dose: 5,000 unit IV Flush (Santos-Cath Flush) 10 ml IVPUSH PRN PRN PRN Reason: FLUSH Caspofungin 50 mg/ Sodium (Chloride) 250 mls @ 250 mls/hr IV DAILY [facility] Last Admin: 05/12/17 10:00 Dose: 250 mls/hr Ampicillin Sodium/Sulbactam (Sodium 1.5 gm/ Sodium Chloride) 100 mls @ 200 mls/ hr IVPB Q8H-IV [facility] Last Admin: 05/13/17 02:08 Dose: 200 mls/hr Ceftazidime (Fortaz (Restricted To Id) -) 1 gm in 10 mls @ 120 mls/hr IVPUSH Q8H-IV [facility] Last Admin: 05/13/17 02:08 Dose: 120 mls/hr Levothyroxine Sodium (Synthroid -) 75 mcg GT DAILY@0700 [facility] Last Admin: 05/13/17 06:43 Dose: 75 mcg Lorazepam (Ativan -) 1 mg GT TID [facility] Last Admin: 05/13/17 06:43 Dose: 1 mg Multi-Ingredient Ointment (Zinc Oxide) 1 applic TP TID [facility] Last Admin: 05/13/17 06:44 Dose: 1 applic Pantoprazole Sodium (Protonix Packets For Oral Suspension -) 40 mg GT DAILY [facility] Last Admin: 05/12/17 11:10 Dose: 40 mg Quetiapine Fumarate (Seroquel -) 25 mg GT HS [facility] Last Admin: 05/12/17 22:08 Dose: 25 mg Sodium Chloride (Normal Saline -) 500 ml IV Q20M PRN PRN Reason: MAP<65mm Hg OR SBP <90 Last Admin: 05/03/17 17:59 Dose: 500 ml - Objective Vital Signs: Vital Signs Temperature 97.4 F L 05/13/17 06:00 Pulse Rate 103 H 05/13/17 06:00 Respiratory Rate 18 05/13/17 06:00 Blood Pressure 133/84 05/13/17 06:00 O2 Sat by Pulse Oximetry (%) 97 05/12/17 21:37 Constitutional: Yes: Well Nourished, No Distress, Calm Cardiovascular: Yes: Regular Rate and Rhythm Respiratory: Yes: Regular, Other (Trach collar) Gastrointestinal: Yes: Normal Bowel Sounds, Soft Musculoskeletal: Yes: WNL Extremities: Yes: WNL Edema: No Peripheral Pulses WNL: Yes Neurological: Yes: Alert, Oriented Psychiatric: Yes: Alert, Oriented Labs: CBC, BMP 05/13/17 07:10 05/13/17 07:10 INR, PTT INR 1.07 (0.82-1.09) 05/03/17 15:40 Problem List - Problems (1) Acute on chronic respiratory failure with hypoxemia Assessment/Plan: TRACH COLLAR WITH O2 AND HUMIDIFICATION Code(s): J96.21 - ACUTE AND CHRONIC RESPIRATORY FAILURE WITH HYPOXIA (2) COPD (chronic obstructive pulmonary disease) Code(s): J44.9 - CHRONIC OBSTRUCTIVE PULMONARY DISEASE, UNSPECIFIED (3) History of lung cancer Assessment/Plan: -seen by oncology team -on immunotherapy Code(s): Z85.118 - PERSONAL HISTORY OF MALIGNANT NEOPLASM OF BRONCHUS AND LUNG (4) Leukocytosis Assessment/Plan: -afebrile -on IV abx -ID on board Code(s): D72.829 - ELEVATED WHITE BLOOD CELL COUNT, UNSPECIFIED (5) Tracheostomy dependence Code(s): Z93.0 - TRACHEOSTOMY STATUS (6) Fungemia Assessment/Plan: -IV antifungal -ID on board Code(s): B49 - UNSPECIFIED MYCOSIS Assessment/Plan see problem list Physical therapy
[2017-05-13] MEDS: HEPARIN NA (PORCINE) 5,000 UNITS/ML 1ML VIAL SQ SCH ×2 (11:51→21:27)
[2017-05-13] MEDS: ESCITALOPRAM OXALATE 10 MG TABLET (FP) GT SCH (11:51)
[2017-05-13] MEDS: PANTOPRAZOLE SOD 40 MG SUSPENSION PACKET GT SCH (11:51)
[2017-05-13] MEDS: amLODIPine BESYLATE 5 MG TABLET (FP) GT SCH (12:03)
[2017-05-13] MEDS: CASPOFUNGIN ACETATE 50 MG in SODIUM CHLORIDE 250 ML IV SCH (12:19)
--- NOTE | 2017-05-13 12:25 | PN ---
Progress Note (short form) - Note Progress Note: PULMONARY AWAKE/ALERT/MILD DEMENTIA/PORT REMOVED VSS/AFEBRILE ANICTERIC/TRACH/PMV DIMINISHED B/L BREATH SOUNDS S1S2 BS+ NO EDEMA LABS/MEDS/NOTES/IMAGES/MICRO REVIEWED IMP ACUTE ON CHRONIC HYPOXEMIC RESPIRATORY FAILURE CLINICALLY IMPROVING BILATERAL PNEUMONIA/FUNGEMIA LUNG CA S/P RT/CHEMO CURRENTLY ON IMMUNOTHERAPY COPD O2 DEPENDENT S/P TRACH/PEG PVD CAROTID ARTERY DISEASE NIDDM PLAN TRACH COLLAR/O2/PMV ANTIBIOTICS/ANTIFUNGALS PER ID TRACHEAL SUCTIONING PRN INHALED BRONCHODILATORS CHEST X-RAY SHOWS IMPROVEMENT Tracie KNIGHT MD
--- NOTE | 2017-05-13 14:40 | PN ---
Progress Note, Physician Chief Complaint: infected chemoport History of Present Illness: 76 yo female with PMH of lung CA (previous chemotherapy and XRT, currently on imunotherapy (last given 04/29/17)), carotid stenosis, PVD, hypertension, hyperlipidemia, Trach/ PEG (since 03/03) and NIDDM (diet controlled) presenting with increased trach O2 requirement, lethargy, and new left sided lung infiltrates s/p bedside removal chemoport right anterior chest wall. - Current Medication List Current Medications: Active Medications Acetaminophen (Tylenol Oral Solution -) 650 mg GT QID PRN PRN Reason: PAIN Last Admin: 05/08/17 15:17 Dose: 650 mg Albuterol/Ipratropium (Duoneb -) 1 amp NEB Q4H PRN PRN Reason: SHORTNESS OF BREATH Last Admin: 05/13/17 06:35 Dose: 1 amp Amlodipine Besylate (Norvasc -) 5 mg GT DAILY [facility] Last Admin: 05/13/17 12:03 Dose: 5 mg Atorvastatin Calcium (Lipitor -) 20 mg GT HS [facility] Last Admin: 05/12/17 22:08 Dose: 20 mg Escitalopram Oxalate (Lexapro -) 10 mg GT DAILY [facility] Last Admin: 05/13/17 11:51 Dose: 10 mg Heparin Sodium (Porcine) (Heparin -) 5,000 unit SQ BID [facility] Last Admin: 05/13/17 11:51 Dose: 5,000 unit IV Flush (Santos-Cath Flush) 10 ml IVPUSH PRN PRN PRN Reason: FLUSH Caspofungin 50 mg/ Sodium (Chloride) 250 mls @ 250 mls/hr IV DAILY [facility] Last Admin: 05/13/17 12:19 Dose: 250 mls/hr Ampicillin Sodium/Sulbactam (Sodium 1.5 gm/ Sodium Chloride) 100 mls @ 200 mls/ hr IVPB Q8H-IV [facility] Last Admin: 05/13/17 11:53 Dose: 200 mls/hr Ceftazidime (Fortaz (Restricted To Id) -) 1 gm in 10 mls @ 120 mls/hr IVPUSH Q8H-IV [facility] Last Admin: 05/13/17 11:53 Dose: 120 mls/hr Levothyroxine Sodium (Synthroid -) 75 mcg GT DAILY@0700 [facility] Last Admin: 05/13/17 06:43 Dose: 75 mcg Lorazepam (Ativan -) 1 mg GT TID [facility] Last Admin: 05/13/17 13:55 Dose: 1 mg Multi-Ingredient Ointment (Zinc Oxide) 1 applic TP TID [facility] Last Admin: 05/13/17 13:55 Dose: 1 applic Pantoprazole Sodium (Protonix Packets For Oral Suspension -) 40 mg GT DAILY [facility] Last Admin: 05/13/17 11:51 Dose: 40 mg Quetiapine Fumarate (Seroquel -) 25 mg GT HS [facility] Last Admin: 05/12/17 22:08 Dose: 25 mg Sodium Chloride (Normal Saline -) 500 ml IV Q20M PRN PRN Reason: MAP<65mm Hg OR SBP <90 Last Admin: 05/03/17 17:59 Dose: 500 ml - Objective Vital Signs: Vital Signs Temperature 97.6 F 05/13/17 12:20 Pulse Rate 104 H 05/13/17 12:20 Respiratory Rate 18 05/13/17 12:20 Blood Pressure 146/86 05/13/17 12:20 O2 Sat by Pulse Oximetry (%) 97 05/12/17 21:37 Constitutional: Yes: No Distress, Calm, Cachectic Eyes: Yes: Conjunctiva Clear, EOM Intact HENT: Yes: Atraumatic, Normocephalic Neck: Yes: Supple, Trachea Midline, Other (tracheostomy in place and capped) Cardiovascular: Yes: Regular Rate and Rhythm, S1, S2 Respiratory: Yes: Regular, Diminished (diminished left lung field posteriorly), Other (Wound Measurement: right anterior chest wall, 0.2cm X 1.5cm X 1.5cm) Gastrointestinal: Yes: Normal Bowel Sounds, Soft, Other (PEG in place) ...Rectal Exam: Yes: Deferred Genitourinary: No: CVA Tenderness - Left, CVA Tenderness - Right Neurological: Yes: Alert, Oriented Psychiatric: Yes: Alert, Oriented Labs: CBC, BMP 05/13/17 07:10 05/13/17 07:10 INR, PTT INR 1.07 (0.82-1.09) 05/03/17 15:40 Problem List - Problems (1) Fungemia Assessment/Plan: 76yo female MMP including lung cancer and tracheostoy dependence presented with hypoxemia and found to have fungemia on antibiotic and antifungal therapy, ID recommended to have the port removed. s/p removal of chemoport no more packing is required. Daily dressing change instructions for nurse or VNS Wound Measurement: right anterior chest wall, 0.5cm X 1.5cm X 1.5cm DressinX4 gauze sponge and tape continue antibiotics and antifungal per ID f/u cultures Code(s): B49 - UNSPECIFIED MYCOSIS (2) Candidemia Code(s): B37.7 - CANDIDAL SEPSIS (3) Acute on chronic respiratory failure with hypoxemia Code(s): J96.21 - ACUTE AND CHRONIC RESPIRATORY FAILURE WITH HYPOXIA (4) History of lung cancer Code(s): Z85.118 - PERSONAL HISTORY OF MALIGNANT NEOPLASM OF BRONCHUS AND LUNG (5) Tracheostomy dependence Code(s): Z93.0 - TRACHEOSTOMY STATUS
[2017-05-13] MEDS: ATORVASTATIN CA 20 MG TABLET (FP) GT SCH (21:26)
[2017-05-13] MEDS: QUEtiapine FUMARATE 25 MG TABLET (FP) GT SCH (21:26)
[2017-05-14] MEDS: AMPICILLIN NA/SULBACTAM NA 1.5 GM in SODIUM CHLORIDE 100 ML IVPB SCH ×3 (02:50→18:17)
[2017-05-14] MEDS: CEFTAZIDIME 1 GM IVPUSH SCH ×3 (03:12→18:17)
[2017-05-14] MEDS: DISP SYRIN IVPUSH SCH ×3 (03:12→18:17)
[2017-05-14] MEDS: PUSH IVPUSH SCH ×3 (03:12→18:17)
[2017-05-14] MEDS: ALBUTEROL SO4 2.5/IPRATROPIUM 0.5 INH SOL 3 ML VIAL.NEB. NEB PRN ×2 (06:01→18:08)
[2017-05-14] MEDS: ZINC OXIDE 20% TOPICAL OINTMENT 30 GM TUBE TP SCH ×3 (06:19→22:10)
[2017-05-14] MEDS: LORazepam 1 MG TABLET GT SCH ×3 (06:19→22:03)
[2017-05-14] MEDS: LEVOTHYROXINE NA 75 MCG TABLET (FP) GT SCH (06:19)
--- NOTE | 2017-05-14 10:00 | PN ---
Progress Note, Physician Chief Complaint: UTI History of Present Illness: on trach collar- 95%, NAD IV abx and antifungal as per ID PEG feeding daily dressing changes at the wound site of port removal, seen by surgery -seen by Pulmonary - Current Medication List Current Medications: Active Medications Acetaminophen (Tylenol Oral Solution -) 650 mg GT QID PRN PRN Reason: PAIN Last Admin: 05/08/17 15:17 Dose: 650 mg Albuterol/Ipratropium (Duoneb -) 1 amp NEB Q4H PRN PRN Reason: SHORTNESS OF BREATH Last Admin: 05/14/17 06:01 Dose: 1 amp Amlodipine Besylate (Norvasc -) 5 mg GT DAILY [facility] Last Admin: 05/13/17 12:03 Dose: 5 mg Atorvastatin Calcium (Lipitor -) 20 mg GT HS [facility] Last Admin: 05/13/17 21:26 Dose: 20 mg Escitalopram Oxalate (Lexapro -) 10 mg GT DAILY [facility] Last Admin: 05/13/17 11:51 Dose: 10 mg Heparin Sodium (Porcine) (Heparin -) 5,000 unit SQ BID [facility] Last Admin: 05/13/17 21:27 Dose: 5,000 unit IV Flush (Santos-Cath Flush) 10 ml IVPUSH PRN PRN PRN Reason: FLUSH Caspofungin 50 mg/ Sodium (Chloride) 250 mls @ 250 mls/hr IV DAILY [facility] Last Admin: 05/13/17 12:19 Dose: 250 mls/hr Ampicillin Sodium/Sulbactam (Sodium 1.5 gm/ Sodium Chloride) 100 mls @ 200 mls/ hr IVPB Q8H-IV [facility] Last Admin: 05/14/17 02:50 Dose: 200 mls/hr Ceftazidime (Fortaz (Restricted To Id) -) 1 gm in 10 mls @ 120 mls/hr IVPUSH Q8H-IV [facility] Last Admin: 05/14/17 03:12 Dose: 120 mls/hr Levothyroxine Sodium (Synthroid -) 75 mcg GT DAILY@0700 [facility] Last Admin: 05/14/17 06:19 Dose: 75 mcg Lorazepam (Ativan -) 1 mg GT TID [facility] Last Admin: 05/14/17 06:19 Dose: 1 mg Multi-Ingredient Ointment (Zinc Oxide) 1 applic TP TID [facility] Last Admin: 12/28/17 06:19 Dose: 1 applic Pantoprazole Sodium (Protonix Packets For Oral Suspension -) 40 mg GT DAILY [facility] Last Admin: 05/13/17 11:51 Dose: 40 mg Quetiapine Fumarate (Seroquel -) 25 mg GT HS [facility] Last Admin: 05/13/17 21:26 Dose: 25 mg Sodium Chloride (Normal Saline -) 500 ml IV Q20M PRN PRN Reason: MAP<65mm Hg OR SBP <90 Last Admin: 05/03/17 17:59 Dose: 500 ml - Objective Vital Signs: Vital Signs Temperature 98.2 F 05/14/17 06:00 Pulse Rate 101 H 05/14/17 06:00 Respiratory Rate 20 05/14/17 06:00 Blood Pressure 161/63 05/14/17 06:00 O2 Sat by Pulse Oximetry (%) 98 05/13/17 21:00 Constitutional: Yes: Well Nourished, No Distress, Calm Cardiovascular: Yes: Regular Rate and Rhythm Respiratory: Yes: Rhonchi (diffuse), Other (Trach colalar) Gastrointestinal: Yes: Normal Bowel Sounds Musculoskeletal: Yes: WNL Extremities: Yes: WNL Edema: No Peripheral Pulses WNL: Yes Neurological: Yes: Alert, Oriented Psychiatric: Yes: Alert, Oriented Labs: CBC, BMP 05/13/17 07:10 05/13/17 07:10 INR, PTT INR 1.07 (0.82-1.09) 05/03/17 15:40 Problem List - Problems (1) Acute on chronic respiratory failure with hypoxemia Assessment/Plan: TRACH COLLAR WITH O2 AND HUMIDIFICATION Code(s): J96.21 - ACUTE AND CHRONIC RESPIRATORY FAILURE WITH HYPOXIA (2) COPD (chronic obstructive pulmonary disease) Code(s): J44.9 - CHRONIC OBSTRUCTIVE PULMONARY DISEASE, UNSPECIFIED (3) History of lung cancer Assessment/Plan: -seen by oncology team -on immunotherapy Code(s): Z85.118 - PERSONAL HISTORY OF MALIGNANT NEOPLASM OF BRONCHUS AND LUNG (4) Leukocytosis Assessment/Plan: -afebrile -on IV abx -ID on board -repeat labs today Code(s): D72.829 - ELEVATED WHITE BLOOD CELL COUNT, UNSPECIFIED (5) Tracheostomy dependence Code(s): Z93.0 - TRACHEOSTOMY STATUS (6) Fungemia Assessment/Plan: -IV antifungal -ID on board Code(s): B49 - UNSPECIFIED MYCOSIS Assessment/Plan see problem list Physical therapy
[2017-05-14] MEDS ORDERED: PT OWN MED DRAWER 7, Y5N ONE ×2 (11:17→18:08)
[2017-05-14] MEDS: ESCITALOPRAM OXALATE 10 MG TABLET (FP) GT SCH (11:22)
[2017-05-14] MEDS: HEPARIN NA (PORCINE) 5,000 UNITS/ML 1ML VIAL SQ SCH ×2 (11:22→22:03)
[2017-05-14] MEDS: PANTOPRAZOLE SOD 40 MG SUSPENSION PACKET GT SCH (11:22)
[2017-05-14] MEDS: amLODIPine BESYLATE 5 MG TABLET (FP) GT SCH (11:22)
[2017-05-14] MEDS: CASPOFUNGIN ACETATE 50 MG in SODIUM CHLORIDE 250 ML IV SCH (12:12)
--- NOTE | 2017-05-14 14:35 | PN ---
Progress Note (short form) - Note Progress Note: ID Case discussed with Dr Castillo Antibiotics as follows Cancidas Day 10 Unasyn Day 6 Ceftazidime day 6 Rx Microbiology 05/04/17 06:00 Serum Cryptococcal Antigen - Final 05/03/17 18:30 Sputum - Endotracheal Suction W/O Vent Gram Stain - Final 05/03/17 18:30 Sputum - Endotracheal Suction W/O Vent Sputum Culture - Final Acinetobacter Baumannii/Haemol 05/03/17 15:50 Urine - Urine - Catheterized Urine Culture - Final Klebsiella Pneumoniae Pseudomonas Aeruginosa 05/03/17 15:50 Blood - Peripheral Venous Blood Culture - Final Yeast Like Organism 05/03/17 15:40 Blood - Peripheral Venous Yeast/Fungus Identification - Final Natty Glabrata 05/03/17 15:40 Blood - Peripheral Venous Blood Culture - Final Yeast Like Organism Selected Entries 05/14/17 05/14/17 09:25 11:23 Temperature 97.9 F Pulse Rate 99 H Respiratory 20 Rate Blood Pressure 163/87 Assessment Pneumonia resistant organisms History of lung cancer Natty Glabrata in the blood cultures Port related remove 05/07 Plan Complete the total of 14 days antifungal therapy Candidas 4 more days Note Natty Glabrata IS RESISTANT TO FLUCONAZOLE fINISH ANTIBIOTICS ON thursday AND DISCHARGE ON THURSDAY MORIAH WRIGHT Problem List - Problems (1) Pneumonia Code(s): J18.9 - PNEUMONIA, UNSPECIFIED ORGANISM Qualifiers: Pneumonia type: due to other aerobic Gram-negative bacteria Laterality: unspecified laterality Lung location: unspecified part of lung Qualified Code(s): J15.6 - Pneumonia due to other Gram-negative bacteria (2) Lung cancer Code(s): C34.90 - MALIGNANT NEOPLASM OF UNSP PART OF UNSP BRONCHUS OR LUNG (3) Candidemia Code(s): B37.7 - CANDIDAL SEPSIS (4) UTI (urinary tract infection) Code(s): N39.0 - URINARY TRACT INFECTION, SITE NOT SPECIFIED
[2017-05-14] MEDS ORDERED: ALBUTEROL SO4 2.5/IPRATROPIUM 0.5 INH SOL 3 ML VIAL.NEB. NEB ONE (17:53)
[2017-05-14] MEDS: QUEtiapine FUMARATE 25 MG TABLET (FP) GT SCH (22:03)
[2017-05-14] MEDS: ATORVASTATIN CA 20 MG TABLET (FP) GT SCH (22:03)
[2017-05-15] MEDS ORDERED: PT OWN MED DRAWER 7, Y5N ONE ×2 (02:16→17:08)
[2017-05-15] MEDS: CEFTAZIDIME 1 GM IVPUSH SCH ×3 (02:52→17:10)
[2017-05-15] MEDS: DISP SYRIN IVPUSH SCH ×3 (02:52→17:10)
[2017-05-15] MEDS: PUSH IVPUSH SCH ×3 (02:52→17:10)
[2017-05-15] MEDS: AMPICILLIN NA/SULBACTAM NA 1.5 GM in SODIUM CHLORIDE 100 ML IVPB SCH ×3 (02:52→17:10)
[2017-05-15] MEDS: LEVOTHYROXINE NA 75 MCG TABLET (FP) GT SCH (06:19)
[2017-05-15] MEDS: ZINC OXIDE 20% TOPICAL OINTMENT 30 GM TUBE TP SCH ×2 (06:19→15:26)
[2017-05-15] MEDS: LORazepam 1 MG TABLET GT SCH ×3 (06:19→21:14)
[2017-05-15 07:59] LABS: BASO % 0.8 % (0-2.0); EOS % 2.1 % (0-4.5); HEMATOCRIT 36.9 % (32.4-45.2); HEMOGLOBIN 11.9 GM/dL (10.7-15.3); MCH 27.4 pg (25.7-33.7); MCHC 32.2 g/dl (32.0-36.0); MEAN CELL VOLUME 85.2 fl (80-96); MEAN PLT VOLUME 6.5 fl (7.5-11.1); MONO % 6.3 % (3.8-10.2); NEUT % 78.8 % (42.8-82.8); PLATELET COUNT 310 K/MM3 (134-434); RBC 4.33 M/mm3 (3.60-5.2); RDW 17.9 % (11.6-15.6)
--- NOTE | 2017-05-15 10:10 | PN ---
Progress Note, Physician Chief Complaint: UTI History of Present Illness: on trach collar- 95%, NAD PEG feeding daily dressing changes at the wound site of port removal, seen by surgery -seen by Pulmonary IV abx and antifungal for another 4 days as per ID - Current Medication List Current Medications: Active Medications Acetaminophen (Tylenol Oral Solution -) 650 mg GT QID PRN PRN Reason: PAIN Last Admin: 05/08/17 15:17 Dose: 650 mg Albuterol/Ipratropium (Duoneb -) 1 amp NEB Q4H PRN PRN Reason: SHORTNESS OF BREATH Last Admin: 05/14/17 18:08 Dose: 1 amp Amlodipine Besylate (Norvasc -) 5 mg GT DAILY [facility] Last Admin: 05/14/17 11:22 Dose: 5 mg Atorvastatin Calcium (Lipitor -) 20 mg GT HS [facility] Last Admin: 05/14/17 22:03 Dose: 20 mg Escitalopram Oxalate (Lexapro -) 10 mg GT DAILY [facility] Last Admin: 05/14/17 11:22 Dose: 10 mg Heparin Sodium (Porcine) (Heparin -) 5,000 unit SQ BID [facility] Last Admin: 05/14/17 22:03 Dose: 5,000 unit Caspofungin 50 mg/ Sodium (Chloride) 250 mls @ 250 mls/hr IV DAILY [facility] Last Admin: 05/14/17 12:12 Dose: 250 mls/hr Ampicillin Sodium/Sulbactam (Sodium 1.5 gm/ Sodium Chloride) 100 mls @ 200 mls/ hr IVPB Q8H-IV [facility] Last Admin: 05/15/17 02:52 Dose: 200 mls/hr Ceftazidime (Fortaz (Restricted To Id) -) 1 gm in 10 mls @ 120 mls/hr IVPUSH Q8H-IV [facility] Last Admin: 05/15/17 02:52 Dose: 120 mls/hr Levothyroxine Sodium (Synthroid -) 75 mcg GT DAILY@0700 [facility] Last Admin: 05/15/17 06:19 Dose: 75 mcg Lorazepam (Ativan -) 1 mg GT TID [facility] Last Admin: 05/15/17 06:19 Dose: 1 mg Multi-Ingredient Ointment (Zinc Oxide) 1 applic TP TID [facility] Last Admin: 05/15/17 06:19 Dose: 1 applic Pantoprazole Sodium (Protonix Packets For Oral Suspension -) 40 mg GT DAILY [facility] Last Admin: 05/14/17 11:22 Dose: 40 mg Quetiapine Fumarate (Seroquel -) 25 mg GT HS [facility] Last Admin: 05/14/17 22:03 Dose: 25 mg - Objective Vital Signs: Vital Signs Temperature 97.6 F 05/15/17 06:00 Pulse Rate 102 H 05/15/17 06:00 Respiratory Rate 20 05/15/17 06:00 Blood Pressure 127/80 05/15/17 06:00 O2 Sat by Pulse Oximetry (%) 95 05/14/17 11:23 Constitutional: Yes: Well Nourished, No Distress, Calm Cardiovascular: Yes: Regular Rate and Rhythm Respiratory: Yes: Regular Gastrointestinal: Yes: Normal Bowel Sounds, Soft Musculoskeletal: Yes: WNL Extremities: Yes: WNL Edema: No Peripheral Pulses WNL: Yes Neurological: Yes: Alert, Oriented Psychiatric: Yes: Alert, Oriented Labs: CBC, BMP 05/15/17 06:00 05/13/17 07:10 INR, PTT INR 1.07 (0.82-1.09) 05/03/17 15:40 Problem List - Problems (1) Acute on chronic respiratory failure with hypoxemia Assessment/Plan: TRACH COLLAR WITH O2 AND HUMIDIFICATION Code(s): J96.21 - ACUTE AND CHRONIC RESPIRATORY FAILURE WITH HYPOXIA (2) COPD (chronic obstructive pulmonary disease) Code(s): J44.9 - CHRONIC OBSTRUCTIVE PULMONARY DISEASE, UNSPECIFIED (3) History of lung cancer Assessment/Plan: -seen by oncology team -on immunotherapy Code(s): Z85.118 - PERSONAL HISTORY OF MALIGNANT NEOPLASM OF BRONCHUS AND LUNG (4) Leukocytosis Assessment/Plan: -afebrile -on IV abx -ID on board Code(s): D72.829 - ELEVATED WHITE BLOOD CELL COUNT, UNSPECIFIED (5) Tracheostomy dependence Code(s): Z93.0 - TRACHEOSTOMY STATUS (6) Fungemia Assessment/Plan: -IV antifungal -ID on board Code(s): B49 - UNSPECIFIED MYCOSIS Assessment/Plan see problem list Physical therapy
[2017-05-15] MEDS: CASPOFUNGIN ACETATE 50 MG in SODIUM CHLORIDE 250 ML IV SCH (10:24)
[2017-05-15] MEDS: ALBUTEROL SO4 2.5/IPRATROPIUM 0.5 INH SOL 3 ML VIAL.NEB. NEB PRN ×2 (10:57→19:31)
[2017-05-15] MEDS: PANTOPRAZOLE SOD 40 MG SUSPENSION PACKET GT SCH (11:00)
[2017-05-15] MEDS: amLODIPine BESYLATE 5 MG TABLET (FP) GT SCH (11:00)
[2017-05-15] MEDS: ESCITALOPRAM OXALATE 10 MG TABLET (FP) GT SCH (11:00)
[2017-05-15] MEDS: HEPARIN NA (PORCINE) 5,000 UNITS/ML 1ML VIAL SQ SCH ×2 (11:00→21:13)
--- NOTE | 2017-05-15 11:59 | DS ---
Physical Examination Vital Signs: Vital Signs Temperature 97.6 F 05/15/17 06:00 Pulse Rate 92 H 05/15/17 10:58 Respiratory Rate 20 05/15/17 06:00 Blood Pressure 127/80 05/15/17 06:00 O2 Sat by Pulse Oximetry (%) 97 05/15/17 10:58 Constitutional: Yes: Well Nourished, No Distress, Calm Cardiovascular: Yes: Regular Rate and Rhythm Respiratory: Yes: Regular, Other (Trach collar) Gastrointestinal: Yes: Normal Bowel Sounds, Soft Musculoskeletal: Yes: WNL Extremities: Yes: WNL Edema: No Peripheral Pulses WNL: Yes Neurological: Yes: Alert, Oriented Psychiatric: Yes: Alert, Oriented Labs: CBC, BMP 05/15/17 06:00 05/13/17 07:10 Discharge Summary Reason For Visit: UTI HYPOXIA, PNEUMONIA Current Active Problems Acute on chronic respiratory failure with hypoxemia (Acute) COPD (chronic obstructive pulmonary disease) (Acute) Candidemia (Acute) Fungemia (Acute) History of lung cancer (Acute) Hypothyroid (Acute) Leukocytosis (Acute) Lung cancer (Acute) Pneumonia (Acute) Pulmonary infiltrate on chest x-ray (Acute) Tachycardia (Acute) Tracheostomy care (Acute) Tracheostomy dependence (Acute) UTI (urinary tract infection) (Acute) Hospital Course: Patient is a 76 y/o female with PMH of lung CA (previous chemotherapy and XRT, currently on imunotherapy (last given 04/29/17)), carotid stenosis, PVD, hypertension, hyperlipidemia, Trach/ PEG (since 03/03) and NIDDM (diet controlled) presenting with increased trach O2 requirement, lethargy, and new left sided lung infiltrates. Patient has had increasing O2 requirements over the past week and has been hypoxic on her 8L trachea O2 during her stay, she has been treated with IV abx- Zosyn, Fortaz and IV antifungal Caspofungin for yeast in her sputum Her chemo port was removed by Surgery Her PEG feedings were decreased to 500 cc only HS and encouraged to increase her PO intake Condition: Stable - Instructions Referrals: Jostin Castillo MD [Primary Care Provider] - [facility] - Home Medications Comprehensive Discharge Medication List: Ambulatory Orders Acetaminophen [Pain Relief] 650 mg GT QID PRN 05/03/17 Amlodipine Besylate [Norvasc -] 5 mg GT DAILY 05/03/17 Aspirin [ASA -] 81 mg GT DAILY 05/03/17 Atorvastatin Ca [Lipitor] 20 mg GT HS 05/03/17 Cholecalciferol (Vitamin D3) [Vitamin D3 -] 800 units GT DAILY 05/03/17 Escitalopram Oxalate [Lexapro -] 10 mg GT DAILY 05/03/17 Ipratropium 0.02% Nebulizer [Atrovent] 1 neb NEB QID 05/03/17 Lansoprazole [Prevacid -] 30 mg GT DAILY 05/03/17 Levothyroxine [Synthroid -] 75 mcg GT DAILY 05/03/17 Lorazepam 1 mg GT TID 05/03/17 Multivitamin [One Daily] 1 each GT DAILY 05/03/17 Polyethylene Glycol 3350 [Laxaclear] 1 packet GT DAILY 05/03/17 Quetiapine Fumarate [Seroquel -] 25 mg GT HS 05/03/17 Valsartan [Diovan] 40 mg GT DAILY 05/03/17 Zinc Oxide 20% Topical Oint 454 gm NR TID 05/03/17
--- NOTE | 2017-05-15 12:31 | PN ---
Progress Note (short form) - Note Progress Note: PULMONARY AWAKE/ALERT/MILD DEMENTIA/PORT REMOVED VSS/AFEBRILE ANICTERIC/TRACH/PMV DIMINISHED B/L BREATH SOUNDS S1S2 BS+ NO EDEMA LABS/MEDS/NOTES/IMAGES/MICRO REVIEWED IMP ACUTE ON CHRONIC HYPOXEMIC RESPIRATORY FAILURE CLINICALLY IMPROVING BILATERAL PNEUMONIA/FUNGEMIA LUNG CA S/P RT/CHEMO CURRENTLY ON IMMUNOTHERAPY COPD O2 DEPENDENT S/P TRACH/PEG PVD CAROTID ARTERY DISEASE NIDDM PLAN TRACH COLLAR/O2/PMV ANTIBIOTICS/ANTIFUNGALS PER ID TRACHEAL SUCTIONING PRN INHALED BRONCHODILATORS CHEST X-RAY SHOWS IMPROVEMENT CAN CONTINUE TREATMENT AT SNF IF POSSIBLE Tracie KNIGHT MD
[2017-05-15] MEDS: ATORVASTATIN CA 20 MG TABLET (FP) GT SCH (21:14)
[2017-05-15] MEDS: QUEtiapine FUMARATE 25 MG TABLET (FP) GT SCH (21:14)
[2017-05-16] MEDS: ALBUTEROL SO4 2.5/IPRATROPIUM 0.5 INH SOL 3 ML VIAL.NEB. NEB PRN ×3 (00:15→19:52)
[2017-05-16] MEDS ORDERED: PT OWN MED DRAWER 7, Y5N ONE ×2 (01:28→10:44)
[2017-05-16] MEDS: DISP SYRIN IVPUSH SCH ×3 (02:11→18:26)
[2017-05-16] MEDS: AMPICILLIN NA/SULBACTAM NA 1.5 GM in SODIUM CHLORIDE 100 ML IVPB SCH ×3 (02:11→18:26)
[2017-05-16] MEDS: CEFTAZIDIME 1 GM IVPUSH SCH ×3 (02:11→18:26)
[2017-05-16] MEDS: PUSH IVPUSH SCH ×3 (02:11→18:26)
[2017-05-16] MEDS: ZINC OXIDE 20% TOPICAL OINTMENT 30 GM TUBE TP SCH ×3 (06:31→21:09)
[2017-05-16] MEDS: LEVOTHYROXINE NA 75 MCG TABLET (FP) GT SCH (06:31)
[2017-05-16] MEDS: LORazepam 1 MG TABLET GT SCH ×3 (06:31→21:08)
--- NOTE | 2017-05-16 09:36 | PN ---
Progress Note (short form) - Note Progress Note: PULMONARY AWAKE/ALERT/ [facility]IR[facility]) ON THURSDAY VSS/AFEBRILE ANICTERIC/TRACH/PMV DIMINISHED B/L BREATH SOUNDS S1S2 BS+ NO EDEMA LABS/MEDS/NOTES/IMAGES/MICRO REVIEWED IMP ACUTE ON CHRONIC HYPOXEMIC RESPIRATORY FAILURE CLINICALLY IMPROVING BILATERAL PNEUMONIA/FUNGEMIA LUNG CA S/P RT/CHEMO CURRENTLY ON IMMUNOTHERAPY COPD O2 DEPENDENT S/P TRACH/PEG PVD CAROTID ARTERY DISEASE NIDDM PLAN TRACH COLLAR/O2/PMV ANTIBIOTICS/ANTIFUNGALS PER ID TRACHEAL SUCTIONING PRN INHALED BRONCHODILATORS CHEST X-RAY SHOWS IMPROVEMENT CAN CONTINUE TREATMENT AT [facility] ON THURSDAY Tracie KNIGHT MD
[2017-05-16] MEDS: PANTOPRAZOLE SOD 40 MG SUSPENSION PACKET GT SCH (10:53)
[2017-05-16] MEDS: ESCITALOPRAM OXALATE 10 MG TABLET (FP) GT SCH (10:54)
[2017-05-16] MEDS: amLODIPine BESYLATE 5 MG TABLET (FP) GT SCH (10:54)
[2017-05-16] MEDS: HEPARIN NA (PORCINE) 5,000 UNITS/ML 1ML VIAL SQ SCH (10:54)
[2017-05-16] MEDS: CASPOFUNGIN ACETATE 50 MG in SODIUM CHLORIDE 250 ML IV SCH (12:26)
--- NOTE | 2017-05-16 16:30 | PN ---
Progress Note, Physician Chief Complaint: UTI History of Present Illness: on trach collar- 95%, NAD PEG feeding daily dressing changes at the wound site of port removal, seen by surgery -seen by Pulmonary IV abx and antifungal for another 4 days as per ID SNF to [place] on Thursday - Current Medication List Current Medications: Active Medications Acetaminophen (Tylenol Oral Solution -) 650 mg GT QID PRN PRN Reason: PAIN Last Admin: 05/08/17 15:17 Dose: 650 mg Albuterol/Ipratropium (Duoneb -) 1 amp NEB Q4H PRN PRN Reason: SHORTNESS OF BREATH Last Admin: 05/16/17 06:29 Dose: 1 amp Amlodipine Besylate (Norvasc -) 5 mg GT DAILY [facility] Last Admin: 05/16/17 10:54 Dose: 5 mg Atorvastatin Calcium (Lipitor -) 20 mg GT HS [facility] Last Admin: 05/15/17 21:14 Dose: 20 mg Escitalopram Oxalate (Lexapro -) 10 mg GT DAILY [facility] Last Admin: 05/16/17 10:54 Dose: 10 mg Heparin Sodium (Porcine) (Heparin -) 5,000 unit SQ BID [facility] Last Admin: 05/16/17 10:54 Dose: 5,000 unit Caspofungin 50 mg/ Sodium (Chloride) 250 mls @ 250 mls/hr IV DAILY [facility] Last Admin: 05/16/17 12:26 Dose: 250 mls/hr Ampicillin Sodium/Sulbactam (Sodium 1.5 gm/ Sodium Chloride) 100 mls @ 200 mls/ hr IVPB Q8H-IV [facility] Last Admin: 05/16/17 10:53 Dose: 200 mls/hr Ceftazidime (Fortaz (Restricted To Id) -) 1 gm in 10 mls @ 120 mls/hr IVPUSH Q8H-IV [facility] Last Admin: 05/16/17 10:53 Dose: 120 mls/hr Levothyroxine Sodium (Synthroid -) 75 mcg GT DAILY@0700 [facility] Last Admin: 05/16/17 06:31 Dose: 75 mcg Lorazepam (Ativan -) 1 mg GT TID [facility] Last Admin: 05/16/17 14:38 Dose: 1 mg Multi-Ingredient Ointment (Zinc Oxide) 1 applic TP TID [facility] Last Admin: 05/16/17 14:38 Dose: 1 applic Pantoprazole Sodium (Protonix Packets For Oral Suspension -) 40 mg GT DAILY [facility] Last Admin: 05/16/17 10:53 Dose: 40 mg Quetiapine Fumarate (Seroquel -) 25 mg GT HS [facility] Last Admin: 05/15/17 21:14 Dose: 25 mg - Objective Vital Signs: Vital Signs Temperature 97.9 F 05/16/17 15:40 Pulse Rate 101 H 05/16/17 15:40 Respiratory Rate 18 05/16/17 15:40 Blood Pressure 147/80 05/16/17 15:40 O2 Sat by Pulse Oximetry (%) 98 05/16/17 10:15 Constitutional: Yes: Well Nourished, No Distress, Calm Cardiovascular: Yes: Regular Rate and Rhythm Respiratory: Yes: Regular Gastrointestinal: Yes: Normal Bowel Sounds Musculoskeletal: Yes: WNL Extremities: Yes: WNL Edema: No Peripheral Pulses WNL: Yes Neurological: Yes: Alert, Oriented Psychiatric: Yes: Alert, Oriented Labs: CBC, BMP 05/15/17 06:00 05/13/17 07:10 INR, PTT INR 1.07 (0.82-1.09) 05/03/17 15:40 Problem List - Problems (1) Acute on chronic respiratory failure with hypoxemia Assessment/Plan: TRACH COLLAR WITH O2 AND HUMIDIFICATION Code(s): J96.21 - ACUTE AND CHRONIC RESPIRATORY FAILURE WITH HYPOXIA (2) COPD (chronic obstructive pulmonary disease) Code(s): J44.9 - CHRONIC OBSTRUCTIVE PULMONARY DISEASE, UNSPECIFIED (3) History of lung cancer Assessment/Plan: -seen by oncology team -on immunotherapy Code(s): Z85.118 - PERSONAL HISTORY OF MALIGNANT NEOPLASM OF BRONCHUS AND LUNG (4) Leukocytosis Assessment/Plan: -afebrile -on IV abx -ID on board Code(s): D72.829 - ELEVATED WHITE BLOOD CELL COUNT, UNSPECIFIED (5) Tracheostomy dependence Code(s): Z93.0 - TRACHEOSTOMY STATUS (6) Fungemia Assessment/Plan: -IV antifungal -ID on board Code(s): B49 - UNSPECIFIED MYCOSIS Assessment/Plan see problem list Physical therapy D/C to SN[facility] on thursday
[2017-05-16] MEDS: ATORVASTATIN CA 20 MG TABLET (FP) GT SCH (21:09)
[2017-05-16] MEDS: QUEtiapine FUMARATE 25 MG TABLET (FP) GT SCH (21:09)
[2017-05-17] MEDS ORDERED: PT OWN MED DRAWER 7, Y5N ONE ×3 (02:36→17:03)
[2017-05-17] MEDS: AMPICILLIN NA/SULBACTAM NA 1.5 GM in SODIUM CHLORIDE 100 ML IVPB SCH ×3 (03:04→17:54)
[2017-05-17] MEDS: PUSH IVPUSH SCH ×3 (03:10→17:54)
[2017-05-17] MEDS: CEFTAZIDIME 1 GM IVPUSH SCH ×3 (03:10→17:54)
[2017-05-17] MEDS: DISP SYRIN IVPUSH SCH ×3 (03:10→17:54)
[2017-05-17] MEDS: ZINC OXIDE 20% TOPICAL OINTMENT 30 GM TUBE TP SCH ×3 (06:49→21:26)
[2017-05-17] MEDS: LEVOTHYROXINE NA 75 MCG TABLET (FP) GT SCH (06:49)
[2017-05-17] MEDS: LORazepam 1 MG TABLET GT SCH ×3 (06:49→21:21)
[2017-05-17] MEDS: ALBUTEROL SO4 2.5/IPRATROPIUM 0.5 INH SOL 3 ML VIAL.NEB. NEB PRN ×3 (06:58→17:30)
[2017-05-17] MEDS: amLODIPine BESYLATE 5 MG TABLET (FP) GT SCH (10:12)
[2017-05-17] MEDS: ESCITALOPRAM OXALATE 10 MG TABLET (FP) GT SCH (10:12)
[2017-05-17] MEDS: PANTOPRAZOLE SOD 40 MG SUSPENSION PACKET GT SCH (10:12)
--- NOTE | 2017-05-17 11:53 | PN ---
Progress Note (short form) - Note Progress Note: PULMONARY AWAKE/ALERT/ [facility]IR[facility]) ON THURSDAY VSS/AFEBRILE ANICTERIC/TRACH/PMV DIMINISHED B/L BREATH SOUNDS S1S2 BS+ NO EDEMA LABS/MEDS/NOTES/IMAGES/MICRO REVIEWED IMP ACUTE ON CHRONIC HYPOXEMIC RESPIRATORY FAILURE CLINICALLY IMPROVING BILATERAL PNEUMONIA/FUNGEMIA LUNG CA S/P RT/CHEMO CURRENTLY ON IMMUNOTHERAPY COPD O2 DEPENDENT S/P TRACH/PEG PVD CAROTID ARTERY DISEASE NIDDM PLAN TRACH COLLAR/O2/PMV ANTIBIOTICS/ANTIFUNGALS PER ID TRACHEAL SUCTIONING PRN INHALED BRONCHODILATORS CHEST X-RAY SHOWS IMPROVEMENT CAN CONTINUE TREATMENT AT [facility] ON THURSDAY Tracie KNIGHT MD
[2017-05-17] MEDS: CASPOFUNGIN ACETATE 50 MG in SODIUM CHLORIDE 250 ML IV SCH (12:12)
[2017-05-17] MEDS ORDERED: LORazepam 0.5 MG TABLET PO STA (16:49)
--- NOTE | 2017-05-17 18:20 | PN ---
Progress Note, Physician Chief Complaint: UTI History of Present Illness: on trach collar- 95%, NAD PEG feeding daily dressing changes at the wound site of port removal, seen by surgery -seen by Pulmonary IV abx and antifungal for another 4 days as per ID SNF to [place] on Thursday - Current Medication List Current Medications: Active Medications Acetaminophen (Tylenol Oral Solution -) 650 mg GT QID PRN PRN Reason: PAIN Last Admin: 05/08/17 15:17 Dose: 650 mg Albuterol/Ipratropium (Duoneb -) 1 amp NEB Q4H PRN PRN Reason: SHORTNESS OF BREATH Last Admin: 05/17/17 11:50 Dose: 1 amp Amlodipine Besylate (Norvasc -) 5 mg GT DAILY [facility] Last Admin: 05/17/17 10:12 Dose: 5 mg Atorvastatin Calcium (Lipitor -) 20 mg GT HS [facility] Last Admin: 05/16/17 21:09 Dose: 20 mg Escitalopram Oxalate (Lexapro -) 10 mg GT DAILY [facility] Last Admin: 05/17/17 10:12 Dose: 10 mg Caspofungin 50 mg/ Sodium (Chloride) 250 mls @ 250 mls/hr IV DAILY [facility] Last Admin: 05/17/17 12:12 Dose: 250 mls/hr Ampicillin Sodium/Sulbactam (Sodium 1.5 gm/ Sodium Chloride) 100 mls @ 200 mls/ hr IVPB Q8H-IV [facility] Last Admin: 05/17/17 17:54 Dose: 200 mls/hr Ceftazidime (Fortaz (Restricted To Id) -) 1 gm in 10 mls @ 120 mls/hr IVPUSH Q8H-IV [facility] Last Admin: 05/17/17 17:54 Dose: 120 mls/hr Levothyroxine Sodium (Synthroid -) 75 mcg GT DAILY@0700 [facility] Last Admin: 05/17/17 06:49 Dose: 75 mcg Lorazepam (Ativan -) 1 mg GT TID [facility] Last Admin: 05/17/17 13:54 Dose: 1 mg Multi-Ingredient Ointment (Zinc Oxide) 1 applic TP TID [facility] Last Admin: 05/17/17 13:54 Dose: 1 applic Pantoprazole Sodium (Protonix Packets For Oral Suspension -) 40 mg GT DAILY [facility] Last Admin: 05/17/17 10:12 Dose: 40 mg Quetiapine Fumarate (Seroquel -) 25 mg GT HS [facility] Last Admin: 05/16/17 21:09 Dose: 25 mg - Objective Vital Signs: Vital Signs Temperature 97.5 F L 05/17/17 16:30 Pulse Rate 99 H 05/17/17 16:30 Respiratory Rate 20 05/17/17 16:30 Blood Pressure 148/88 05/17/17 16:30 O2 Sat by Pulse Oximetry (%) 93 L 05/17/17 12:09 Constitutional: Yes: Well Nourished, No Distress, Anxious Cardiovascular: Yes: Regular Rate and Rhythm Respiratory: Yes: Rhonchi (diffuse), Other (trach collar) Gastrointestinal: Yes: Normal Bowel Sounds, Soft Musculoskeletal: Yes: WNL Extremities: Yes: WNL Edema: No Peripheral Pulses WNL: Yes Neurological: Yes: Alert, Oriented Psychiatric: Yes: Alert, Oriented Labs: CBC, BMP 05/15/17 06:00 05/13/17 07:10 INR, PTT INR 1.07 (0.82-1.09) 05/03/17 15:40 Problem List - Problems (1) Acute on chronic respiratory failure with hypoxemia Assessment/Plan: TRACH COLLAR WITH O2 AND HUMIDIFICATION Code(s): J96.21 - ACUTE AND CHRONIC RESPIRATORY FAILURE WITH HYPOXIA (2) COPD (chronic obstructive pulmonary disease) Code(s): J44.9 - CHRONIC OBSTRUCTIVE PULMONARY DISEASE, UNSPECIFIED (3) History of lung cancer Assessment/Plan: -seen by oncology team -on immunotherapy Code(s): Z85.118 - PERSONAL HISTORY OF MALIGNANT NEOPLASM OF BRONCHUS AND LUNG (4) Leukocytosis Assessment/Plan: -afebrile -on IV abx for another 24 hours -ID on board Code(s): D72.829 - ELEVATED WHITE BLOOD CELL COUNT, UNSPECIFIED (5) Tracheostomy dependence Code(s): Z93.0 - TRACHEOSTOMY STATUS (6) Fungemia Assessment/Plan: -IV antifungal -ID on board Code(s): B49 - UNSPECIFIED MYCOSIS Assessment/Plan see problem list Physical therapy D/C to [facility] th[facility] Spoke to extensively answering all the questions about her current state of health
[2017-05-17] MEDS: QUEtiapine FUMARATE 25 MG TABLET (FP) GT SCH (21:21)
[2017-05-17] MEDS: ATORVASTATIN CA 20 MG TABLET (FP) GT SCH (21:21)
[2017-05-18] MEDS ORDERED: PT OWN MED DRAWER 7, Y5N ONE ×3 (00:30→17:13)
[2017-05-18] MEDS: DISP SYRIN IVPUSH SCH ×3 (02:13→17:20)
[2017-05-18] MEDS: AMPICILLIN NA/SULBACTAM NA 1.5 GM in SODIUM CHLORIDE 100 ML IVPB SCH ×3 (02:13→17:20)
[2017-05-18] MEDS: CEFTAZIDIME 1 GM IVPUSH SCH ×3 (02:13→17:20)
[2017-05-18] MEDS: PUSH IVPUSH SCH ×3 (02:13→17:20)
[2017-05-18] MEDS: LORazepam 1 MG TABLET GT SCH ×3 (06:09→21:38)
[2017-05-18] MEDS: LEVOTHYROXINE NA 75 MCG TABLET (FP) GT SCH (06:09)
[2017-05-18] MEDS: ZINC OXIDE 20% TOPICAL OINTMENT 30 GM TUBE TP SCH ×3 (06:10→21:38)
[2017-05-18] MEDS: ALBUTEROL SO4 2.5/IPRATROPIUM 0.5 INH SOL 3 ML VIAL.NEB. NEB PRN ×2 (09:11→18:12)
[2017-05-18] MEDS: CASPOFUNGIN ACETATE 50 MG in SODIUM CHLORIDE 250 ML IV SCH (10:02)
[2017-05-18] MEDS: PANTOPRAZOLE SOD 40 MG SUSPENSION PACKET GT SCH (10:03)
[2017-05-18] MEDS: amLODIPine BESYLATE 5 MG TABLET (FP) GT SCH (10:03)
[2017-05-18] MEDS: ESCITALOPRAM OXALATE 10 MG TABLET (FP) GT SCH (10:03)
--- NOTE | 2017-05-18 10:25 | PN ---
Progress Note (short form) - Note Progress Note: PULMONARY AWAKE/ALERT/ [facility]IR[facility]) ON THURSDAY VSS/AFEBRILE ANICTERIC/TRACH/PMV DIMINISHED B/L BREATH SOUNDS S1S2 BS+ NO EDEMA LABS/MEDS/NOTES/IMAGES/MICRO REVIEWED IMP ACUTE ON CHRONIC HYPOXEMIC RESPIRATORY FAILURE CLINICALLY IMPROVING BILATERAL PNEUMONIA/FUNGEMIA LUNG CA S/P RT/CHEMO CURRENTLY ON IMMUNOTHERAPY COPD O2 DEPENDENT S/P TRACH/PEG PVD CAROTID ARTERY DISEASE NIDDM PLAN TRACH COLLAR/O2/PMV ANTIBIOTICS/ANTIFUNGALS PER ID TRACHEAL SUCTIONING PRN INHALED BRONCHODILATORS CHEST X-RAY SHOWS IMPROVEMENT CAN CONTINUE TREATMENT AT [facility] ON THURSDAY Tracie KNIGHT MD
--- NOTE | 2017-05-18 11:37 | PN ---
Progress Note, Physician History of Present Illness: in bed nad uses suction prn - Current Medication List Current Medications: Active Medications Acetaminophen (Tylenol Oral Solution -) 650 mg GT QID PRN PRN Reason: PAIN Last Admin: 05/08/17 15:17 Dose: 650 mg Albuterol/Ipratropium (Duoneb -) 1 amp NEB Q4H PRN PRN Reason: SHORTNESS OF BREATH Last Admin: 05/18/17 09:11 Dose: 1 amp Amlodipine Besylate (Norvasc -) 5 mg GT DAILY [facility] Last Admin: 05/18/17 10:03 Dose: 5 mg Atorvastatin Calcium (Lipitor -) 20 mg GT HS [facility] Last Admin: 05/17/17 21:21 Dose: 20 mg Escitalopram Oxalate (Lexapro -) 10 mg GT DAILY [facility] Last Admin: 05/18/17 10:03 Dose: 10 mg Caspofungin 50 mg/ Sodium (Chloride) 250 mls @ 250 mls/hr IV DAILY [facility] Last Admin: 05/18/17 10:02 Dose: 250 mls/hr Ampicillin Sodium/Sulbactam (Sodium 1.5 gm/ Sodium Chloride) 100 mls @ 200 mls/ hr IVPB Q8H-IV [facility] Last Admin: 05/18/17 10:03 Dose: 200 mls/hr Ceftazidime (Fortaz (Restricted To Id) -) 1 gm in 10 mls @ 120 mls/hr IVPUSH Q8H-IV [facility] Last Admin: 05/18/17 10:02 Dose: 120 mls/hr Levothyroxine Sodium (Synthroid -) 75 mcg GT DAILY@0700 [facility] Last Admin: 05/18/17 06:09 Dose: 75 mcg Lorazepam (Ativan -) 1 mg GT TID [facility] Last Admin: 05/18/17 06:09 Dose: 1 mg Multi-Ingredient Ointment (Zinc Oxide) 1 applic TP TID [facility] Last Admin: 05/18/17 06:10 Dose: 1 applic Pantoprazole Sodium (Protonix Packets For Oral Suspension -) 40 mg GT DAILY [facility] Last Admin: 05/18/17 10:03 Dose: 40 mg Quetiapine Fumarate (Seroquel -) 25 mg GT HS [facility] Last Admin: 05/17/17 21:21 Dose: 25 mg - Objective Vital Signs: Vital Signs Temperature 97.8 F 05/18/17 06:00 Pulse Rate 81 05/18/17 06:00 Respiratory Rate 18 05/18/17 06:00 Blood Pressure 155/83 05/18/17 06:00 O2 Sat by Pulse Oximetry (%) 96 05/17/17 21:00 Cardiovascular: Yes: S1, S2 Respiratory: Yes: Rhonchi Gastrointestinal: Yes: Normal Bowel Sounds, Soft Labs: CBC, BMP 05/15/17 06:00 05/13/17 07:10 INR, PTT INR 1.07 (0.82-1.09) 05/03/17 15:40 Assessment/Plan - Problems (1) Acute on chronic respiratory failure with hypoxemia Assessment/Plan: TRACH COLLAR WITH O2 AND HUMIDIFICATION Code(s): J96.21 - ACUTE AND CHRONIC RESPIRATORY FAILURE WITH HYPOXIA (2) COPD (chronic obstructive pulmonary disease) Code(s): J44.9 - CHRONIC OBSTRUCTIVE PULMONARY DISEASE, UNSPECIFIED (3) History of lung cancer Assessment/Plan: -seen by oncology team -on immunotherapy Code(s): Z85.118 - PERSONAL HISTORY OF MALIGNANT NEOPLASM OF BRONCHUS AND LUNG (4) Leukocytosis Assessment/Plan: -afebrile -on IV abx for another 24 hours -ID on board Code(s): D72.829 - ELEVATED WHITE BLOOD CELL COUNT, UNSPECIFIED (5) Tracheostomy dependence Code(s): Z93.0 - TRACHEOSTOMY STATUS (6) Fungemia Assessment/Plan: -IV antifungal -ID on board Code(s): B49 - UNSPECIFIED MYCOSIS
[2017-05-18] MEDS: ATORVASTATIN CA 20 MG TABLET (FP) GT SCH (21:38)
[2017-05-18] MEDS: QUEtiapine FUMARATE 25 MG TABLET (FP) GT SCH (21:38)
[2017-05-19] MEDS ORDERED: PT OWN MED DRAWER 7, Y5N ONE (02:43)
[2017-05-19] MEDS: DISP SYRIN IVPUSH SCH ×2 (03:03→10:16)
[2017-05-19] MEDS: PUSH IVPUSH SCH ×2 (03:03→10:16)
[2017-05-19] MEDS: CEFTAZIDIME 1 GM IVPUSH SCH ×2 (03:03→10:16)
[2017-05-19] MEDS: AMPICILLIN NA/SULBACTAM NA 1.5 GM in SODIUM CHLORIDE 100 ML IVPB SCH ×2 (03:04→10:15)
[2017-05-19] MEDS: ZINC OXIDE 20% TOPICAL OINTMENT 30 GM TUBE TP SCH ×2 (06:14→14:38)
[2017-05-19] MEDS: LORazepam 1 MG TABLET GT SCH ×2 (06:14→14:39)
[2017-05-19] MEDS: LEVOTHYROXINE NA 75 MCG TABLET (FP) GT SCH (06:15)
[2017-05-19] MEDS: ALBUTEROL SO4 2.5/IPRATROPIUM 0.5 INH SOL 3 ML VIAL.NEB. NEB PRN ×2 (07:11→11:32)
[2017-05-19] MEDS: PANTOPRAZOLE SOD 40 MG SUSPENSION PACKET GT SCH (10:15)
[2017-05-19] MEDS: CASPOFUNGIN ACETATE 50 MG in SODIUM CHLORIDE 250 ML IV SCH (10:15)
[2017-05-19] MEDS: ACETAMINOPHEN 650 MG/20.3 ML ORAL SOLUTION (CUPS) GT PRN (10:15)
[2017-05-19] MEDS: amLODIPine BESYLATE 5 MG TABLET (FP) GT SCH (10:17)
[2017-05-19] MEDS: ESCITALOPRAM OXALATE 10 MG TABLET (FP) GT SCH (10:17)
--- NOTE | 2017-05-19 10:38 | PN ---
Progress Note, Physician Chief Complaint: UTI History of Present Illness: on trach collar- 95%, NAD PEG feeding daily dressing changes at the wound site of port removal, seen by surgery -seen by Pulmonary IV abx and antifungal completed SNF [facility] - Current Medication List Current Medications: Active Medications Acetaminophen (Tylenol Oral Solution -) 650 mg GT QID PRN PRN Reason: PAIN Last Admin: 05/19/17 10:15 Dose: 650 mg Albuterol/Ipratropium (Duoneb -) 1 amp NEB Q4H PRN PRN Reason: SHORTNESS OF BREATH Last Admin: 05/19/17 07:11 Dose: 1 amp Amlodipine Besylate (Norvasc -) 5 mg GT DAILY [facility] Last Admin: 05/19/17 10:17 Dose: 5 mg Atorvastatin Calcium (Lipitor -) 20 mg GT HS [facility] Last Admin: 05/18/17 21:38 Dose: 20 mg Escitalopram Oxalate (Lexapro -) 10 mg GT DAILY [facility] Last Admin: 05/19/17 10:17 Dose: 10 mg Caspofungin 50 mg/ Sodium (Chloride) 250 mls @ 250 mls/hr IV DAILY [facility] Last Admin: 05/19/17 10:15 Dose: 250 mls/hr Ampicillin Sodium/Sulbactam (Sodium 1.5 gm/ Sodium Chloride) 100 mls @ 200 mls/ hr IVPB Q8H-IV [facility] Last Admin: 05/19/17 10:15 Dose: 200 mls/hr Ceftazidime (Fortaz (Restricted To Id) -) 1 gm in 10 mls @ 120 mls/hr IVPUSH Q8H-IV [facility] Last Admin: 05/19/17 10:16 Dose: 120 mls/hr Levothyroxine Sodium (Synthroid -) 75 mcg GT DAILY@0700 [facility] Last Admin: 05/19/17 06:15 Dose: 75 mcg Lorazepam (Ativan -) 1 mg GT TID [facility] Last Admin: 05/19/17 06:14 Dose: 1 mg Multi-Ingredient Ointment (Zinc Oxide) 1 applic TP TID [facility] Last Admin: 05/19/17 06:14 Dose: 1 applic Pantoprazole Sodium (Protonix Packets For Oral Suspension -) 40 mg GT DAILY [facility] Last Admin: 05/19/17 10:15 Dose: 40 mg Quetiapine Fumarate (Seroquel -) 25 mg GT HS [facility] Last Admin: 05/18/17 21:38 Dose: 25 mg - Objective Vital Signs: Vital Signs Temperature 98.1 F 05/19/17 06:00 Pulse Rate 99 H 05/19/17 06:00 Respiratory Rate 18 05/19/17 06:00 Blood Pressure 170/86 05/19/17 06:00 O2 Sat by Pulse Oximetry (%) 97 05/18/17 21:00 Constitutional: Yes: Well Nourished, Calm, Anxious Cardiovascular: Yes: Regular Rate and Rhythm Respiratory: Yes: Regular Musculoskeletal: Yes: WNL Extremities: Yes: WNL Edema: No Peripheral Pulses WNL: Yes Neurological: Yes: Alert, Oriented Psychiatric: Yes: Alert, Oriented Labs: CBC, BMP 05/15/17 06:00 05/13/17 07:10 INR, PTT INR 1.07 (0.82-1.09) 05/03/17 15:40 Problem List - Problems (1) Acute on chronic respiratory failure with hypoxemia Assessment/Plan: TRACH COLLAR WITH O2 AND HUMIDIFICATION Code(s): J96.21 - ACUTE AND CHRONIC RESPIRATORY FAILURE WITH HYPOXIA (2) COPD (chronic obstructive pulmonary disease) Code(s): J44.9 - CHRONIC OBSTRUCTIVE PULMONARY DISEASE, UNSPECIFIED (3) History of lung cancer Assessment/Plan: -seen by oncology team -on immunotherapy Code(s): Z85.118 - PERSONAL HISTORY OF MALIGNANT NEOPLASM OF BRONCHUS AND LUNG (4) Tracheostomy dependence Code(s): Z93.0 - TRACHEOSTOMY STATUS (5) Fungemia Assessment/Plan: -IV antifungal completed -ID on board Code(s): B49 - UNSPECIFIED MYCOSIS Assessment/Plan see problem list Physical therapy D/[facility] to [facility] Spoke to extensively answering all the questions about her current state of health
--- NOTE | 2017-05-19 12:01 | PN ---
Progress Note (short form) - Note Progress Note: day #14 cancidas day #10 antibiotics alert Vital Signs Period Temp Pulse Resp BP Sys/Her Pulse Ox Last 24 Hr 98 F-98.4 F 97-106 18-20 138-170/80-87 97-99 cor-rrr lungs decreased bs at bases trach intact abd soft,nt ext no edema CBC, BMP 05/15/17 06:00 05/13/17 07:10 Current Medications Acetaminophen (Tylenol Oral Solution -) 650 mg GT QID PRN PRN Reason: PAIN Last Admin: 05/19/17 10:15 Dose: 650 mg Albuterol/Ipratropium (Duoneb -) 1 amp NEB Q4H PRN PRN Reason: SHORTNESS OF BREATH Last Admin: 05/19/17 11:32 Dose: 1 amp Amlodipine Besylate (Norvasc -) 5 mg GT DAILY [facility] Last Admin: 05/19/17 10:17 Dose: 5 mg Atorvastatin Calcium (Lipitor -) 20 mg GT HS [facility] Last Admin: 05/18/17 21:38 Dose: 20 mg Escitalopram Oxalate (Lexapro -) 10 mg GT DAILY [facility] Last Admin: 05/19/17 10:17 Dose: 10 mg Caspofungin 50 mg/ Sodium (Chloride) 250 mls @ 250 mls/hr IV DAILY [facility] Last Admin: 05/19/17 10:15 Dose: 250 mls/hr Ampicillin Sodium/Sulbactam (Sodium 1.5 gm/ Sodium Chloride) 100 mls @ 200 mls/ hr IVPB Q8H-IV [facility] Last Admin: 05/19/17 10:15 Dose: 200 mls/hr Ceftazidime (Fortaz (Restricted To Id) -) 1 gm in 10 mls @ 120 mls/hr IVPUSH Q8H-IV [facility] Last Admin: 05/19/17 10:16 Dose: 120 mls/hr Levothyroxine Sodium (Synthroid -) 75 mcg GT DAILY@0700 [facility] Last Admin: 05/19/17 06:15 Dose: 75 mcg Lorazepam (Ativan -) 1 mg GT TID [facility] Last Admin: 05/19/17 06:14 Dose: 1 mg Multi-Ingredient Ointment (Zinc Oxide) 1 applic TP TID [facility] Last Admin: 05/19/17 06:14 Dose: 1 applic Pantoprazole Sodium (Protonix Packets For Oral Suspension -) 40 mg GT DAILY [facility] Last Admin: 05/19/17 10:15 Dose: 40 mg Quetiapine Fumarate (Seroquel -) 25 mg GT HS [facility] Last Admin: 05/18/17 21:38 Dose: 25 mg a/p fungemia- s/p port removal, day #14cancidas d/c cancidas after today's dose pneumonia-day #10 unasyn/ceftaz-d/c antibiotics uti metastatic lung cancer
--- NOTE | 2017-05-19 12:05 | PN ---
Progress Note (short form) - Note Progress Note: Awake and alert. Overall appears better. No acute events overnight. Intake & Output 05/16/17 05/17/17 05/18/17 05/19/17 23:59 23:59 23:59 23:59 Intake Total 8431 251 5443 Balance 8743 003 9314 Weight 105 lb 12.8 oz 103 lb 1.6 oz Last Vital Signs Temp Pulse Resp BP Pulse Ox 98.1 F 100 H 18 170/86 99 05/19/17 06:00 05/19/17 11:30 05/19/17 06:00 05/19/17 06:00 05/19/17 11:30 Active Medications Acetaminophen (Tylenol Oral Solution -) 650 mg GT QID PRN PRN Reason: PAIN Last Admin: 05/19/17 10:15 Dose: 650 mg Albuterol/Ipratropium (Duoneb -) 1 amp NEB Q4H PRN PRN Reason: SHORTNESS OF BREATH Last Admin: 05/19/17 11:32 Dose: 1 amp Amlodipine Besylate (Norvasc -) 5 mg GT DAILY [facility] Last Admin: 05/19/17 10:17 Dose: 5 mg Atorvastatin Calcium (Lipitor -) 20 mg GT HS [facility] Last Admin: 05/18/17 21:38 Dose: 20 mg Escitalopram Oxalate (Lexapro -) 10 mg GT DAILY [facility] Last Admin: 05/19/17 10:17 Dose: 10 mg Levothyroxine Sodium (Synthroid -) 75 mcg GT DAILY@0700 [facility] Last Admin: 05/19/17 06:15 Dose: 75 mcg Lorazepam (Ativan -) 1 mg GT TID [facility] Last Admin: 05/19/17 06:14 Dose: 1 mg Multi-Ingredient Ointment (Zinc Oxide) 1 applic TP TID [facility] Last Admin: 05/19/17 06:14 Dose: 1 applic Pantoprazole Sodium (Protonix Packets For Oral Suspension -) 40 mg GT DAILY [facility] Last Admin: 05/19/17 10:15 Dose: 40 mg Quetiapine Fumarate (Seroquel -) 25 mg GT HS [facility] Last Admin: 05/18/17 21:38 Dose: 25 mg Constitutional: Yes: NAD, Thin Eyes: Yes: WNL HENT: Yes: Trach intact Neck: Yes: Supple Cardiovascular: Yes: Regular Rate and Rhythm, S1, S2 Respiratory: Yes: Bilateral scattered Rhonchi Gastrointestinal: Yes: Normal Bowel Sounds, Soft Extremities: Yes: WNL Edema: No Labs: Problem List - Problems (1) Acute on chronic respiratory failure with hypoxemia Code(s): J96.21 - ACUTE AND CHRONIC RESPIRATORY FAILURE WITH HYPOXIA (2) Hypothyroid Code(s): E03.9 - HYPOTHYROIDISM, UNSPECIFIED (3) Lung cancer Code(s): C34.90 - MALIGNANT NEOPLASM OF UNSP PART OF UNSP BRONCHUS OR LUNG (4) Pneumonia Code(s): J18.9 - PNEUMONIA, UNSPECIFIED ORGANISM (5) COPD (chronic obstructive pulmonary disease) Code(s): J44.9 - CHRONIC OBSTRUCTIVE PULMONARY DISEASE, UNSPECIFIED (6) Tracheostomy dependence Code(s): 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 Assessment/Plan IMP ACUTE ON CHRONIC HYPOXEMIC RESPIRATORY FAILURE BILATERAL PNEUMONIA LUNG CA S/P RT/CHEMO CURRENTLY ON IMMUNOTHERAPY COPD O2 DEPENDENT S/P TRACH/PEG PVD CAROTID ARTERY DISEASE NIDDM PLAN Trach collar O2 Currently off ABX Tracheal suctioning BD TX PRN D/C to [facility] Dr Delvalle
[2017-05-19 15:07] VITALS: BP 142/72; PULSE 84; TEMP 98.2
== END 2017-05-19 15:42 | DRG 314 ==
LOC: JER 13:42 → JERBED 18:35 → J5S 20:41 → J8W 05-13 09:53
PROVIDERS: ADMIT Family Medicine; ATTEND Family Medicine
PROC: 3E0G76Z Introduction of Nutritional Substance into Upper GI, Via Natural or Artificial Opening (ICD-10-PCS; 2017-05-06)
PROC: 0WP803Z Removal of Infusion Device from Chest Wall, Open Approach (ICD-10-PCS; principal; 2017-05-07)
DX: T80.211A Bloodstream infection due to central venous catheter, initial encounter (principal); B37.7 Candidal sepsis; J18.9 Pneumonia, unspecified organism; J96.21 Acute and chronic respiratory failure with hypoxia; C34.90 Malignant neoplasm of unspecified part of unspecified bronchus or lung; N39.0 Urinary tract infection, site not specified; B49 Unspecified mycosis; R64 Cachexia; I73.89 Other specified peripheral vascular diseases; I10 Essential (primary) hypertension; E78.5 Hyperlipidemia, unspecified; I65.29 Occlusion and stenosis of unspecified carotid artery; E11.9 Type 2 diabetes mellitus without complications; E03.9 Hypothyroidism, unspecified; R91.8 Other nonspecific abnormal finding of lung field; D64.9 Anemia, unspecified; R00.0 Tachycardia, unspecified; J44.9 Chronic obstructive pulmonary disease, unspecified; D72.829 Elevated white blood cell count, unspecified; Z93.1 Gastrostomy status; Z99.81 Dependence on supplemental oxygen; Z93.0 Tracheostomy status; Z68.20 Body mass index [BMI] 20.0-20.9, adult
CPT/HCPCS: 36415; 71010-TC; 71250-TC; 74230-TC; 80053; 80061; 81003; 81015; 82272; 82550; 82728; 82803; 83540; 83550; 83605; 83721; 84443; 84484; 85025; 85027; 85610; 85730; 86140; 86850; 86900; 86901; 87040; 87070; 87086; 87102; 87106; 87186; 87205; 87210; 87449; 87899; 92611-GN; 93005; 93010; 93306-TC; 94640; 97116-GP; 97161-GP; 99284-25; J0637; J1644; J1756

== ENCOUNTER 2018-10-05 09:51 | Inpatient (IN) | payer OTHER | END 2018-10-07 20:23 | disposition E | LOC: FER 09:51 → FM/S 12:38 | DX: Z85.118 Personal history of other malignant neoplasm of bronchus and lung (principal) ==